=== PATIENT | male | born 1955 | race African-American/Black ===

== ENCOUNTER 2020-01-12 09:55 | Outpatient (CLI) | payer BC, SELFPAY ==
--- NOTE | 2020-01-12 | ECG_ITS ---
Measurements Intervals [place] Rate: 70 P: 59 ME: 213 QRS: -12 QRSD: 112 T: -5 QT: 428 QTc: 463 Interpretive Statements SINUS RHYTHM WITH FIRST DEGREE AV BLOCK INCOMPLETE RIGHT BUNDLE BRANCH BLOCK NONSPECIFIC ST & T-WAVE ABNORMALITY- INFERIOR LEADS NONSPECIFIC ST ELEVATION IN ANTEROLATERAL LEADS ABNORMAL ECG Electronically Signed On 01-12-2020 10:50:39 CDT by Maycol Chopra D.O.
[2020-01-12 10:26] LABS: Hematocrit 43.6 % (42.0-52.0); Hemoglobin 14.3 g/dL (14.0-18.0)
[2020-01-12 10:35] LABS: Hemoglobin A1C 4.6 % (<5.7)
[2020-01-12 10:36] LABS: Urine Cotinine NEGATIVE
[2020-01-12 10:38] LABS: Albumin Level 4.7 g/dL (3.5-5.1); Estimated Glomerular Filt Rate > 60; Glucose 108 mg/dL (75-110)
== END 2020-01-12 09:56 | disposition home or self-care (01) ==
PROVIDERS: PCP Internal Medicine; Visit Provider Orthopaedic Surgery
DX: Z01.818 Encounter for other preprocedural examination (principal); M17.12 Unilateral primary osteoarthritis, left knee; I12.9 Hypertensive chronic kidney disease with stage 1 through stage 4 chronic kidney disease, or unspecified chronic kidney disease; N18.9 Chronic kidney disease, unspecified; E78.5 Hyperlipidemia, unspecified; I25.10 Atherosclerotic heart disease of native coronary artery without angina pectoris; R93.1 Abnormal findings on diagnostic imaging of heart and coronary circulation
CPT/HCPCS: 80307; 82040; 82565; 82947; 83036; 85014; 85018; 93005

== ENCOUNTER 2020-01-25 07:45 | Outpatient (CLI) | payer BC, SELFPAY ==
[2020-01-25 08:54] LABS: Basophils Percent Auto 0.4 % (0.2-1.2); Eosinophils Absolute Auto 0.1 K/mm3 (0-0.3); Eosinophils Percent Auto 0.6 % (0-4.4); Hematocrit 41.8 % (42.0-52.0); Hemoglobin 13.8 g/dL (14.0-18.0); Immature Granulocyte Absolute 0.03 K/mm3 (0.00-0.031); Immature Granulocyte Percent A 0.3 % (0-0.5); Lymphocytes Absolute Auto 3.12 K/mm3 (0.9-3.2); Lymphocytes Percent Auto 29.3 % (18.3-44.2); Mean Corpuscular Hemoglobin 31.2 pg (26-34); Mean Corpuscular Volume 94.4 fl (80-100); Mean Platelet Volume 10.4 fl (7.4-10.4); Monocytes Absolute Auto 0.8 K/mm3 (0.1-0.6); Monocytes Percent Auto 7.7 % (2.6-8.5); Neutrophils Absolute Auto 6.6 K/mm3 (1.3-6.7); Neutrophils Percent Auto 61.7 % (45.5-73.1); Platelet Count Result 296 k/mm3 (150-375); Red Blood Count 4.43 M/mm3 (4.6-6.20); Red Cell Distribution Width 11.9 % (11.5-14.5); White Blood Count 10.7 K/mm3 (4.5-10.0)
== END 2020-01-25 07:46 | disposition home or self-care (01) ==
LOC: ANHSURGERY 07:46
PROVIDERS: PCP Internal Medicine; Visit Provider Orthopaedic Surgery
DX: Z01.818 Encounter for other preprocedural examination (principal); M17.12 Unilateral primary osteoarthritis, left knee
CPT/HCPCS: 36415; 85025; 86850; 86900; 86901; 87081

== ENCOUNTER 2020-02-03 01:51 | Outpatient (CLI) | payer BC, SELFPAY ==
[2020-02-03 17:59] LABS: SARS-CoV-2 RNA PCR Negative
== END 2020-02-03 01:52 | disposition home or self-care (01) ==
LOC: ANHCOVIDDT 01:51
PROVIDERS: PCP Internal Medicine; Visit Provider Orthopaedic Surgery
DX: Z01.812 Encounter for preprocedural laboratory examination (principal); Z20.828 Contact with and (suspected) exposure to other viral communicable diseases
CPT/HCPCS: 87635; C9803; U0003

== ENCOUNTER 2020-02-06 01:10 | Day surgery (SDC) | payer BC, SELFPAY ==
[2020-01-25 07:53] VITALS: BMI 34.2
[2020-01-25 07:58] VITALS: BP 139/80; PULSE 72; RESP 16; TEMP 36.9; O2SAT 99
--- NOTE | 2020-02-04 10:24 | WPDANESEPP ---
Anes - Eval Pre Procedure Procedure: Operation Date: 02/06/20 07:30 Proposed Procedures p Left Total Knee Arthroplasty - Parker Clarke MD Date/Time: 02/04/20 10:24 Pre Op Diagnosis: Primary OA Left Knee Patient Data Age: 64 Gender: M Height: 1.91 m Weight: 124.4 kg Last Vital Signs Temp 36.9 C 01/25/20 07:58 Pulse 72 01/25/20 07:58 Resp 16 01/25/20 07:58 BP 139/80 01/25/20 07:58 Pulse Ox 99 01/25/20 07:58 Allergies Allergy/AdvReac Type Severity Reaction Status Date / Time No Known Allergies Allergy Verified 01/29/20 11:18 Home Medications Medication Instructions Recorded Confirmed Type atorvastatin 40 mg PO DAILY 03/28/19 01/29/20 History labetalol 100 mg PO BID 03/28/19 01/29/20 History triamterene-hydrochlorothiazid 1 cap PO DAILY 03/28/19 01/29/20 History amlodipine 10 mg tablet 10 mg PO DAILY #90 tablet 04/04/19 01/29/20 Rx sildenafil 100 mg tablet 100 mg PO PRN #18 tablet 10/10/19 01/29/20 Rx potassium chloride 10 mEq 10 meq PO DAILY #90 tablet 12/12/19 01/29/20 Rx tablet,extended release tramadol 50 mg tablet 50 mg PO Q6H PRN #30 tablet 01/12/20 01/29/20 Rx aspirin [Children's Aspirin] 81 mg PO QAM 01/25/20 01/29/20 History Patient hx anesthesia problems: none Family hx anesthesia problems: none PMFSH Past Medical History Medical History CAD (coronary artery disease) Chronic GERD Colon polyps HTN (hypertension) Hyperlipidemia Hypertensive kidney disease with CKD stage III Prostate cancer Treated with prostatectomy, no radiation therapy Surgical History Surgical History H/O angioplasty 1986 H/O hernia repair X2 year H/O knee surgery Bilateral, for ruptured quadriceps tendons H/O prostatectomy Due to prostate cancer History of back surgery Cyst removed from back History of cardiac catheterization Family History Family History Mother Diabetes mellitus Hypertension Father Carcinoma of colon Diabetes mellitus Hypertension Sibling Diabetes mellitus Other Family history of malignant neoplasm Social History Social History Social History: Patient is retired from the [employer]. Enjoying his job but is now board since [employer]. Takes care of his grandchildren. He is to [place]iha in who his his durable power tapper balance wheel screw hole for healthcare. The patient has 3 biological children. He is adopted 2 children. He has foster dad other children as well. Smoking status: Never smoker Second hand tobacco smoke exposure: Yes () Additional smoking assessment comments: DENIES ANY FORM OF TOBACCO/NICOTINE USE Alcohol intake: current Drinks per week: 8 Substance use: never Gender identity (if verbalized by the patient): Male Spiritual care concerns: No Agree to blood products: Yes Exam Day of Procedure 02/04/20 10:24
--- NOTE | 2020-02-05 11:31 | WPDANESEPPF ---
Anes - Initial Pre Proc Eval Procedure: Operation Date: 02/06/20 07:30 Proposed Procedures p Left Total Knee Arthroplasty - Parker Clarke MD Date/Time: 02/05/20 11:31 Surgeon: Parker Clarke MD Pre Op Diagnosis: Primary OA Left Knee Patient Data Age: 64 Gender: M Height: 1.91 m Weight: 124.4 kg Last Vital Signs Temp 36.9 C 01/25/20 07:58 Pulse 72 01/25/20 07:58 Resp 16 01/25/20 07:58 BP 139/80 01/25/20 07:58 Pulse Ox 99 01/25/20 07:58 Allergies Allergy/AdvReac Type Severity Reaction Status Date / Time No Known Allergies Allergy Verified 02/06/20 06:34 Home Medications Medication Instructions Recorded Confirmed Type atorvastatin 40 mg PO DAILY 03/28/19 02/06/20 History labetalol 100 mg PO BID 03/28/19 02/06/20 History triamterene-hydrochlorothiazid 1 cap PO DAILY 03/28/19 02/06/20 History amlodipine 10 mg tablet 10 mg PO DAILY #90 tablet 04/04/19 02/06/20 Rx sildenafil 100 mg tablet 100 mg PO PRN #18 tablet 10/10/19 02/06/20 Rx potassium chloride 10 mEq 10 meq PO DAILY #90 tablet 12/12/19 02/06/20 Rx tablet,extended release tramadol 50 mg tablet 50 mg PO Q6H PRN #30 tablet 01/12/20 02/06/20 Rx aspirin [Children's Aspirin] 81 mg PO QAM 01/25/20 02/06/20 History Patient hx anesthesia problems: none Family hx anesthesia problems: none PMFSH Past Medical History Medical History CAD (coronary artery disease) Chronic GERD Colon polyps HTN (hypertension) Hyperlipidemia Hypertensive kidney disease with CKD stage III Prostate cancer Treated with prostatectomy, no radiation therapy Surgical History Surgical History H/O angioplasty 1986 H/O hernia repair X2 year H/O knee surgery Bilateral, for ruptured quadriceps tendons H/O prostatectomy Due to prostate cancer History of back surgery Cyst removed from back History of cardiac catheterization Family History Family History Mother Diabetes mellitus Hypertension Father Carcinoma of colon Diabetes mellitus Hypertension Sibling Diabetes mellitus Other Family history of malignant neoplasm Social History Social History Social History: Patient is retired from the [employer]. Enjoying his job but is now board since half-way. Takes care of his grandchildren. He is to Madiha in who his his durable power staff attorney for healthcare. The patient has 3 biological children. He is adopted 2 children. He has foster dad other children as well. Smoking status: Never smoker Second hand tobacco smoke exposure: No Additional smoking assessment comments: DENIES ANY FORM OF TOBACCO/NICOTINE USE Alcohol intake: current Drinks per week: 7 Substance use: never Living arrangements: with family Gender identity (if verbalized by the patient): Male Spiritual care concerns: No Agree to blood products: Yes Anes - Eval Final PreProcedure Day of Procedure 02/05/20 11:31 Patient weight: obese Heart: regular rate and rhythm Lungs: clear to auscultation and normal air movement Airway: Mallampati scale class II Neurological: alert and oriented Last oral intake: >/= 8 hours ASA classification: III Emergent: no Anesthetic plan: proceed Anesthesia type and monitoring: general LMA and standard monitoring Informed Consent: The patient's anesthetic plan and its attendant risks and benefits were discussed with the patient/family/POA. Questions were solicited and answers provided to the satisfaction of the patient/family/POA.
--- NOTE | 2020-02-05 11:40 | WPDANESPNB ---
Anes - Peripheral Nerve Block Date/Time: 02/05/20 11:40 I have discussed with the patient/family/POA the placement of a peripheral nerve block for post-operative pain management, including associated risks, benefits, complications, and side effects. Alternative methods of post-operative analgesia were detailed. Questions were solicited and answers provided to the satisfaction of the patient/family/POA. Time-Out: A pre-procedural Time-Out was completed immediately before starting the procedure and confirmed: Patient Identification, Site, Procedure, Patient Position and the Availability of Requisite Equipment. Clinical Indications: Acute post-operative pain management requested by the operative surgeon. Nerve Block Insertion Note Anes-nerve block: adductor canal left Patient position: supine Skin prep: chlorhexidine Needle: 22 gauge, stimulating, insulated echogenic needle. Needle length: 80 mm Technique: ultrasound Injectate: bupivacaine 0.5% with epi 5 mcg/ml (30cc) Observations: tolerated well Complications: none Procedure start time:: 711 Procedure end time:: 714
[2020-02-06] VITALS (14 sets, daily range): BP systolic 114–153; BP diastolic 68–84; PULSE 77–98; RESP 14–20; TEMP 35.9–37.2; O2SAT 93–98
--- NOTE | ~2020-02-06 | XR_ITS ---
EXAMINATION: XR knee LT 2V DATE: 02/06/2020 10:46 INDICATION: Postoperative evaluation following left total knee arthroplasty. TECHNIQUE: Anteroposterior and lateral views of the left knee were obtained. COMPARISON: None. FINDINGS: Left total knee arthroplasty with patellar resurfacing appears well seated and in near anatomic align ment. No fractures identified. Epdro-Stieda lesion with heterotopic ossification along the medi al epicondyle likely related to chronic sprain of the medial collateral ligament. Several loose osteo chondral bodies versus heterotopic ossification projecting over the suprapatellar pouch. Expected pos toperative subcutaneous and intra-articular gas. IMPRESSION: 1. Left total knee arthroplasty, negative for postoperative purposes. 2. Pedro-Stieda lesion consistent with chronic sprain of the proximal medial collateral ligament . Reviewed, dictated and finalized at location A. IMPRESSION: 1. Left total knee arthroplasty, negative for postoperative purposes. 2. Pedro-Stieda lesion consistent with chronic sprain of the proximal medi al collateral ligament.
[2020-02-06] MEDS: ACETAMINOPHEN 500 MG TABLET 1000 MG PO (06:37)
[2020-02-06] MEDS: LACTATED RINGERS 1,000 ML 30 ML IV CONT ×2 (06:40→10:32)
[2020-02-06] MEDS: KETOROLAC 15 MG/ML VIAL (*BKC) IV PUSH (06:45)
[2020-02-06] MEDS: TRANEXAMIC ACID 1,000MG/ISO100 1,000 MG/100 ML BAG 200 MG IVPB (06:45)
--- NOTE | 2020-02-06 07:01 | WPDHPUPDATE1 ---
History and Physical Update Update Date/Time: 02/06/20 07:01 History and Physical has been reviewed, including an updated exam of the patient. There are NO changes in the patient's condition. Risks, benefits, and alternatives have been discussed and questions answered. Patient agrees to proceed with procedure.
[2020-02-06] MEDS: ceFAZolin 3 GM/D5W 100 ML 100 ML IVPB (07:20)
[2020-02-06] MEDS: GENTAMICIN BONE CEMENT REFOBACIN 1 EACH TOPICAL (09:19)
--- NOTE | 2020-02-06 10:56 | P.OP_ITS ---
Procedure Note - Detailed Date of procedure: 02/07/20 Pre-op diagnosis: Primary OA Left Knee Post-op diagnosis: same Procedure performed: Total knee arthroplasty Description of procedure: * Extensive osteophyte formation. Bone quality good. Very large medial release required, including needle release. Contracture was suspected due to the previous injuries and the osteophytes inside medial collateral ligament attachment at the adductor tubercle. Multiple sutures from the previous quadriceps tendon repair encountered. Medial parapatellar approach performed. Large osteophyte proximal patella/ distal quadriceps excised the articular side. Standard bony resections performed. 5 degree valgus femur, 3? external rotation. The femur was downsized 1.5 mm. Posterior capsule release was also performed to facilitate full extension. Implants: [employer] knee system, Allen base plate cemented tibia size 7, Posterior cruciate stabilized cemented femoral component size 7 ,and an 16 mm posterior stabilized polyethylene insert. 38mm polyethylene patella component. Anesthesia: GETA and regional (subsartorial nerve block) Surgeon: Parker Clarke MD Drains: No Complications: None Findings: OPERATIVE DETAILS: The patient was given a nerve block preoperatively, and then brought to the operating room. A general anesthetic was administered. The leg was prepped and draped in the usual sterile fashion. The limb was elevated and the tourniquet inflated to 300 mmHg during the procedure. A longitudinal incision was created along the medial border of the patella and patellar tendon, and a medial parapatellar approach to the knee was performed. A large medial release was taken. The knee was then flexed. The osteophytes were carefully removed. The intramedullary guide was placed in the femoral canal. The distal femoral resection was then taken with the oscillating saw. The collateral ligaments were carefully protected. The tibia was carefully exposed. The jig was applied, and the proximal tibia was resected according to the preoperative plan. The knee was balanced in extension. Appropriate releases were taken where needed. The anterior cruciate ligament and meniscal remnants were removed. The posterior cruciate ligament was sacrificed. The patella was measured. Patellar resection was carried out with the oscillating saw. The femur was sized and rotation assessed using a combination of gap balancing, posterior referencing, and the AP axis. The 4 in 1 cutting block, and the box cut guide were used to finish the femoral cuts after equal gaps were assured. The osteophytes were carefully removed from the back of the knee. The knee was copiously irrigated with antibiotic solution periodically throughout the procedure. The meniscal remnants were removed. The spacer block was used to confirm equal flexion and extension gaps. The tibia was sized and broached. The bony surfaces were prepared for cementing with pulsatile lavage. The real tibia,femur, and patella were cemented. Excess cement was carefully removed. Patellar tracking was carefully assessed. No additional releases were required. The wound was closed with #1 Vicryl suture, #2 Quill suture, 0-Quill suture, and 2-0 Quill suture followed by Steri-Strips. A sterile bulky dressing was applied. Meticulous hemostasis was maintained throughout the procedure. The Aquamantis device was used for additional hemostasis. The pain relieving mixture was injected after the exposure. There were no complications. The patient was extubated and brought to the recovery room in stable condition after the application of sterile dressing with Wily bandage.
[2020-02-06] MEDS: SODIUM CHLORIDE 0.9% IV 1,000 ML 125 ML IV CONT (12:24)
--- NOTE | 2020-02-06 12:45 | WPDCN ---
Assessment and Plan Assessment and plan (1) Arthritis of left knee: Code(s): M17.12 - Unilateral primary osteoarthritis, left knee Status: Acute (2) Hypertension: Code(s): I10 - Essential (primary) hypertension Status: Acute (3) Hyperlipidemia: Qualifiers: Hyperlipidemia type: unspecified Qualified Code(s): E78.5 - Hyperlipidemia, unspecified Code(s): E78.5 - Hyperlipidemia, unspecified Status: Chronic (4) Chronic kidney disease, stage 3: Code(s): N18.30 - Chronic kidney disease, stage 3 unspecified Status: Acute Additional Plan The hospitalist service has been consulted for management of the patient's medical condition postoperatively. Wound care and pain control will be deferred to Dr. Clarke as well as DVT prophylaxis. Agree with early ambulation and physical therapy. Vital signs were reviewed and his blood pressure is well controlled. Antihypertensives will be resumed and blood pressures will be monitored daily. Check baseline labs in a.m. including LFTs as he is on a statin. The rest of his home medications will be reviewed and resumed as appropriate. Thank you for allowing us to participate in this patient's care. Please do not hesitate to contact us with any questions. We will follow with you. Supervising physician for this medical consultation is Dr. Saba Delgado. This document was completed by using [employer] speech recognition software, therefore pit laborer variances may occur. Despite proofreading, typographical errors may also occur. HPI Data of Consult Date/Time: 02/06/20 12:45 Requesting Physician: Parker Clarke MD Primary Care Provider: Chin George MD Consult Narrative Narrative: Ashkan Stallworth is a 64-year-old male whom the hospitalist service has been consulted for management of his medical conditions postoperatively. He has severe, progressive osteoarthritis of the left knee and despite conservative outpatient treatment he continued to have pain and thus elected for replacement today. His surgery was performed under general anesthesia with regional block. No immediate complications were documented, I do not see an estimated blood loss. Postoperatively, he has minimal pain despite his regional block wearing off. He has been up to the chair at the side of the bed and has done well with that. He denies postoperative fever, chills, chest pain, shortness of breath, nausea, and vomiting. He also denies paresthesias, skin color, and temperature changes distal to the surgical site. Review of Systems Review of Systems: Narrative: Twelve systems were reviewed with pertinent positives and negatives as per HPI. Aside from osteoarthritis, his medical history is significant for coronary artery disease, hypertension, hyperlipidemia, chronic kidney disease stage 3, and history of prostate cancer. He is status post angioplasty in 1986 with a negative stress test in March 2019. He believes his hypertension and hyperlipidemia well controlled on medications. He is status post prostatectomy in 2010 for prostate cancer. His kidney function has been stable. No history of venous thromboembolism. Except as documented, all other systems were reviewed and are negative. [facility] Past Medical History Medical History (Updated 02/06/20 @ 13:46 by Chelsey Cotton PA-C) Chronic GERD Chronic kidney disease, stage 3 Baseline creatinine is between 1.3 and 1.50. Colon polyps Coronary artery disease With history of angioplasty in 1986. Negative stress test in March 2019. Erectile dysfunction Gout Hyperlipidemia Hypertension Hypertensive kidney disease with CKD stage III Osteoarthritis Prostate cancer (~2010) Status post prostatectomy. Surgical History Surgical History (Updated 02/06/20 @ 13:44 by Chelsey Cototn PA-C) History of angioplasty (~1986) History of arthroplasty of left knee (~02/06/20) History of back s
[2020-02-06] MEDS: ceFAZolin 2 GM/D5W 50 ML 2 GM/50 ML BAG IVPB ×2 (15:26→23:43)
[2020-02-06] MEDS: ASPIRIN 81 MG ENTERIC TABLET PO (17:36)
[2020-02-06] MEDS: MELOXICAM 7.5 MG TABLET PO (17:36)
[2020-02-06] MEDS: DOCUSATE SODIUM 100 MG CAPSULE PO (17:36)
[2020-02-06] MEDS: SENNOSIDES 8.6 MG TABLET 17.2 MG PO (20:09)
[2020-02-06] MEDS: FAMOTIDINE 20 MG TABLET PO (20:10)
[2020-02-06] MEDS: LABETALOL HCL 100 MG TABLET PO (20:10)
[2020-02-07 01:20] VITALS: BP 111/85; PULSE 84; RESP 16; TEMP 36.2; O2SAT 95
[2020-02-07 05:30] VITALS: BP 123/71; PULSE 79; RESP 16; TEMP 36.1; O2SAT 97
[2020-02-07 05:54] LABS: Basophils Percent Auto 0.1 % (0.2-1.2); Hematocrit 35.5 % (42.0-52.0); Hemoglobin 11.7 g/dL (14.0-18.0); Immature Granulocyte Absolute 0.24 K/mm3 (0.00-0.031); Immature Granulocyte Percent A 1.1 % (0-0.5); Lymphocytes Absolute Auto 2.24 K/mm3 (0.9-3.2); Mean Corpuscular Hemoglobin 31.1 pg (26-34); Mean Corpuscular Volume 94.4 fl (80-100); Mean Platelet Volume 10.7 fl (7.4-10.4); Monocytes Absolute Auto 2.3 K/mm3 (0.1-0.6); Monocytes Percent Auto 10.2 % (2.6-8.5); Neutrophils Absolute Auto 17.6 K/mm3 (1.3-6.7); Neutrophils Percent Auto 78.6 % (45.5-73.1); Platelet Count Result 228 k/mm3 (150-375); Red Blood Count 3.76 M/mm3 (4.6-6.20); Red Cell Distribution Width 12.2 % (11.5-14.5); White Blood Count 22.4 K/mm3 (4.5-10.0)
[2020-02-07 06:07] LABS: Alanine Aminotransferase 25 U/L (4-50); Albumin Level 3.9 g/dL (3.5-5.1); Alkaline Phosphatase 48 U/L (38-126); Anion Gap 10 mmol/L (8-16); Aspartate Amino Transferase 28 U/L (17-59); Bilirubin,Total 0.9 mg/dL (0.2-1.3); Blood Urea Nitrogen 15 mg/dL (9-20); Calcium 8.7 mg/dL (8.4-10.2); Carbon Dioxide 26 mmol/L (22-30); Chloride 106 mmol/L (98-107); Estimated CRCL calculation 80 ml/min; Estimated Glomerular Filt Rate > 60; Glucose 122 mg/dL (75-110); Potassium 3.1 mmol/L (3.4-5.0); Sodium 142 mmol/L (137-145)
[2020-02-07] MEDS: oxyCODONE HCL (*CRX) 5 MG TAB IR PO (06:10)
[2020-02-07] MEDS: ceFAZolin 2 GM/D5W 50 ML 2 GM/50 ML BAG IVPB (06:33)
--- NOTE | 2020-02-07 08:38 | WPDANESPN ---
Anes - Prog Note Post-Op Date/Time: 02/07/20 08:38 Cardiovascular status: normal Respiratory status: normal Airway patency: baseline Mental status: baseline Post-Op hydration status: normal Vital Signs: Last Vital Signs Temp 36.1 C L 02/07/20 05:30 Pulse 79 02/07/20 05:30 Resp 16 02/07/20 05:30 BP 123/71 02/07/20 05:30 Pulse Ox 97 02/07/20 05:30 Pain Score (VAS): 0 I/O: Intake & Output 02/06/20 02/07/20 02/07/20 23:59 07:59 15:59 Intake Total 740 550 Output Total 425 900 Balance 315 -350 Laboratory Tests 02/07/20 05:10 02/07/20 05:10 02/07/20 02/07/20 02/07/20 05:10 05:10 05:10 WBC 22.4 H RBC 3.76 L Hgb 11.7 L Hct 35.5 L MCV 94.4 MCH 31.1 MCHC 33.0 RDW 12.2 Plt Count 228 MPV 10.7 H Immature Gran % (Auto) 1.1 H Neut % (Auto) 78.6 H Lymph % (Auto) 10.0 L [place] % (Auto) 10.2 H Eos % (Auto) 0.0 Baso % (Auto) 0.1 L Lymph # (Auto) 2.24 [place] # (Auto) 2.3 H Eos # (Auto) 0.0 Baso # (Auto) 0.0 Abs Immat Gran (auto) 0.24 H Absolute Neuts (auto) 17.6 H Absolute Nucleated RBC 0.0 Nucleated RBC % 0.0 Sodium 142 Potassium 3.1 L Chloride 106 Carbon Dioxide 26 Anion Gap 10 BUN 15 Creatinine 1.20 Estim Creat Clear Calc 80 Estimated GFR > 60 Glucose 122 H Calcium 8.7 Total Bilirubin 0.9 Direct Bilirubin 0.0 AST 28 ALT 25 Alkaline Phosphatase 48 Total Protein 7.0 Albumin 3.9 Post-procedural complaints: none Patient Feedback: Patient satisfied with anesthetic care.
[2020-02-07] MEDS: ATORVASTATIN 40 MG TABLET PO (09:19)
[2020-02-07] MEDS: FAMOTIDINE 20 MG TABLET PO (09:19)
[2020-02-07] MEDS: POTASSIUM CHLORIDE 20 MEQ TABLET PO (09:19)
[2020-02-07] MEDS: POTASSIUM CHLORIDE 10 MEQ TABLET.ER PO (09:19)
[2020-02-07] MEDS: TRIAMTERENE 37.5 MG/HCTZ 25 MG (MAXZIDE) TABLET 1 TAB PO (09:19)
[2020-02-07 09:20] VITALS: PULSE 79
[2020-02-07] MEDS: ASPIRIN 81 MG ENTERIC TABLET PO (09:20)
[2020-02-07] MEDS: amLODIPine BESYLATE 5 MG TABLET 10 MG PO (09:20)
[2020-02-07] MEDS: MELOXICAM 7.5 MG TABLET PO (09:20)
[2020-02-07] MEDS: LABETALOL HCL 100 MG TABLET PO (09:20)
[2020-02-07] MEDS: DOCUSATE SODIUM 100 MG CAPSULE PO (09:20)
[2020-02-07] MEDS: POTASSIUM CHLORIDE 10 MEQ TABLET PO (09:21)
[2020-02-07 10:00] VITALS: BP 140/73; PULSE 92; RESP 16; TEMP 36.2; O2SAT 98
[2020-02-07 11:45] LABS: Basophils Percent Auto 0.2 % (0.2-1.2); Hematocrit 38.4 % (42.0-52.0); Hemoglobin 12.7 g/dL (14.0-18.0); Immature Granulocyte Percent A 0.5 % (0-0.5); Lymphocytes Absolute Auto 2.57 K/mm3 (0.9-3.2); Lymphocytes Percent Auto 13.2 % (18.3-44.2); Mean Corpuscular HGB Conc 33.1 g/dl (32-36); Mean Corpuscular Hemoglobin 31.7 pg (26-34); Mean Corpuscular Volume 95.8 fl (80-100); Mean Platelet Volume 10.4 fl (7.4-10.4); Monocytes Absolute Auto 2.4 K/mm3 (0.1-0.6); Monocytes Percent Auto 12.1 % (2.6-8.5); Neutrophils Absolute Auto 14.4 K/mm3 (1.3-6.7); Platelet Count Result 237 k/mm3 (150-375); Red Blood Count 4.01 M/mm3 (4.6-6.20); Red Cell Distribution Width 12.5 % (11.5-14.5); White Blood Count 19.5 K/mm3 (4.5-10.0)
--- NOTE | 2020-02-07 11:48 | PM.DS ---
DS: Admitting Diagnosis Admitting Diagnosis Admitting Diagnosis: Primary OA Left Knee DS: Discharge Diagnosis Discharge Diagnosis (1) History of arthroplasty of left knee: Onset Date: ~02/06/20 Code(s): Z96.652 - Presence of left artificial knee joint Status: Acute DS: Summary Hospital Course Reason for hospitalization: Total knee arthroplasty. Hospital Course: Tolerated surgery well. Progressed appropriately with therapy. Status at Discharge Functional status at discharge: uses cane/walker Overall status at discharge: patient is progressing back to baseline Time Spent with Patient Time attestation: Total time spent providing and/or coordinating discharge services: Exam Const: General: no acute distress Resp: Effort & Inspection: normal respiratory effort Skin: Other: Wound healing well. Mepilex dressing intact. No hematoma or drainage. Neuro: Motor exam (neuro): 5/5 motor strength present throughout Sensory Exam: normal sensation Psych: Mental Status: mental status grossly normal Speech and movement: Normal speech and movement present DS: Data Data Completed and Pending Labs on day of discharge: Labs from last 24 hours 02/07/20 02/07/20 02/07/20 11:38 05:10 05:10 WBC Pending RBC Pending Hgb Pending Hct Pending MCV Pending MCH Pending MCHC Pending RDW Pending Plt Count Pending MPV Pending Immature Gran % (Auto) Pending Neut % (Auto) Pending Lymph % (Auto) Pending [place] % (Auto) Pending Eos % (Auto) Pending Baso % (Auto) Pending Lymph # (Auto) Pending [place] # (Auto) Pending Eos # (Auto) Pending Baso # (Auto) Pending Abs Immat Gran (auto) Pending Absolute Neuts (auto) Pending Absolute Nucleated RBC Pending Nucleated RBC % Pending Sodium 142 Potassium 3.1 L Chloride 106 Carbon Dioxide 26 Anion Gap 10 BUN 15 Creatinine 1.20 Estim Creat Clear Calc 80 Estimated GFR > 60 Glucose 122 H Calcium 8.7 Total Bilirubin 0.9 Direct Bilirubin 0.0 AST 28 ALT 25 Alkaline Phosphatase 48 Total Protein 7.0 Albumin 3.9 02/07/20 05:10 WBC 22.4 H RBC 3.76 L Hgb 11.7 L Hct 35.5 L MCV 94.4 MCH 31.1 MCHC 33.0 RDW 12.2 Plt Count 228 MPV 10.7 H Immature Gran % (Auto) 1.1 H Neut % (Auto) 78.6 H Lymph % (Auto) 10.0 L [place] % (Auto) 10.2 H Eos % (Auto) 0.0 Baso % (Auto) 0.1 L Lymph # (Auto) 2.24 [place] # (Auto) 2.3 H Eos # (Auto) 0.0 Baso # (Auto) 0.0 Abs Immat Gran (auto) 0.24 H Absolute Neuts (auto) 17.6 H Absolute Nucleated RBC 0.0 Nucleated RBC % 0.0 Sodium Potassium Chloride Carbon Dioxide Anion Gap BUN Creatinine Estim Creat Clear Calc Estimated GFR Glucose Calcium Total Bilirubin Direct Bilirubin AST ALT Alkaline Phosphatase Total Protein Albumin Discharge Plan Discharge Patient Disposition: Home, Self-Care Discharge Instructions: See instruction sheet. Patient Instructions: Antibiotic Form, Pain Management (GEN), Precautions after Total Joint Replacement Surgery (GEN), Joint Replacement Surgery (GEN), Knee Replacement (GEN), Revision Total Joint Arthroplasty (GEN) Follow-up/Referrals: Parker Clarke MD [Physician] - Discharge Medications: New aspirin 81 mg Tablet,Delayed Release (Dr/Ec) 81 mg PO BID 14 Days Qty: 28 RF: 0 meloxicam [Mobic] 7.5 mg Tablet 7.5 mg PO BID 30 Days Qty: 60 RF: 1 oxycodone-acetaminophen 5-325 mg tablet 1 - 2 tablet PO Q4-6H MDD 8 tablets PRN (Reason: pain) Qty: 30 RF: 0 Continued amlodipine 10 mg tablet 10 mg PO DAILY Qty: 90 RF: 3 atorvastatin 40 mg tablet 40 mg PO DAILY RF: 0 triamterene-hydrochlorothiazid 37.5-25 mg capsule 1 cap PO DAILY RF: 0 labetalol 100 mg tablet 100 mg PO BID RF: 0 sildenafil 100 mg tablet 100 mg PO PRN Qty: 18 RF: 4 potassium chloride [Klor-Con 10] 10 mEq tablet extended
--- NOTE | 2020-02-07 14:15 | PM.IMPN ---
Progress Note: A&P Assessment and Plan (1) Arthritis of left knee: Code(s): M17.12 - Unilateral primary osteoarthritis, left knee Status: Acute Assessment and Plan: He is POD#1 s/p left total knee arthroplasty by Dr. Calrke due to severe, progressive left knee arthritis. He tolerated the procedure well with no immediate complications documented. Post-operative wound care, pain control, DVT prophylaxis, and weight-bearing status will be deferred to Dr. Clarke. Agree with early ambulation and physical therapy. (2) Leukocytosis: Code(s): D72.829 - Elevated white blood cell count, unspecified Status: Acute Assessment and Plan: WBC elevated at 22.4 post-op. I suspect that this is reactive following surgery. He is afebrile with no signs or symptoms to suggest infection. Recommend repeat CBC in 1 week. He should follow-up with his PCP immediately if he develops any symptoms to suggest infection. (3) Hypertension: Code(s): I10 - Essential (primary) hypertension Status: Chronic Assessment and Plan: Blood pressures were reviewed and reasonably controlled. Most recent BP was 140/73. Continue amlodipine, labetalol, and triamterene-hydrochlorothiazide. (4) Hyperlipidemia: Qualifiers: Hyperlipidemia type: unspecified Qualified Code(s): E78.5 - Hyperlipidemia, unspecified Code(s): E78.5 - Hyperlipidemia, unspecified Status: Chronic Assessment and Plan: LFTs were reviewed and are normal. Continue atorvastatin. (5) Chronic kidney disease, stage 3: Code(s): N18.30 - Chronic kidney disease, stage 3 unspecified Status: Chronic Assessment and Plan: Cr is 1.2 and BUN 15. Renal function appears improved from baseline. Renally dose medications and avoid nephrotoxins. Continue to monitor and follow-up outpatient. (6) Hypokalemia: Code(s): E87.6 - Hypokalemia Status: Acute Assessment and Plan: Potassium was low at 3.1. He reports that he did not take potassium yesterday. Potassium was replaced with PO KCl supplementation. Recommend repeat BMI outpatient within 1 week. Follow-up with PCP outpatient. Time Spent With Patient Time with patient: 15 - 25 minutes Subjective Date/time seen: 02/07/20 14:15 Mr. Stallworth is a 64 y.o. male with PMH significant for hypertension, CKD stage 3, GERD, HLD and osteoarthritis who is seen in follow-up for medical management s/p left total knee arthroplasty. He is doing very well post-operatively His pain is well-controlled with tylenol. He ambulated with therapy and is progressing well. He denies subjective fever and chills. He denies dyspnea, shortness of breath, and cough. He denies nausea and vomiting. He denies headaches, lightheadedness, and dizziness. He is voiding without any issues and has no other urinary complaints. He is tolerating his diet. He is passing flatus and feels like he will need to have a bowel movement soon. Review of Systems Review of Systems: All systems reviewed & are unremarkable except as noted in HPI and below Exam Narrative: Exam Narrative: General: Very pleasant and cooperative, well-developed, well-nourished 64 y.o. male sitting in the chair at the bedside HEENT: Normocephalic and atraumatic. Sclerae anicteric. Conjunctivae without injection or exudate. EOMI. Oral mucosa moist. Neck: Supple. Cardiac: Regular rate and rhythm. S1 and S2 normal. No murmur appreciated. Lungs: Effort normal with no increased work of breathing. Lungs clear to auscultation bilaterally. Abdomen: Bowel sounds are normoactive. Abdomen soft, non-distended, and non-tender. Musculoskeletal: Left knee with ice therapy in place. Extremities: No lower extremity edema or calf tenderness. Pedal pulses 2+ bilaterally. Neurological: Alert and oriented. Exam non-focal to casual conversation. Speech is clear. Motor and sensory function intact to the left leg and
== END 2020-02-07 14:40 | disposition home or self-care (01) ==
LOC: ANHSURGERY 06:06 → ANH2MED 11:48
PROVIDERS: Physician Assistant; Physician Assistant Surgical; PCP Internal Medicine; Visit Provider Orthopaedic Surgery
PROC: (CPT 27447; principal; 2020-02-06 07:30)
DX: M17.12 Unilateral primary osteoarthritis, left knee (principal); G89.18 Other acute postprocedural pain; E78.5 Hyperlipidemia, unspecified; I12.9 Hypertensive chronic kidney disease with stage 1 through stage 4 chronic kidney disease, or unspecified chronic kidney disease; N18.30 Chronic kidney disease, stage 3 unspecified; I25.10 Atherosclerotic heart disease of native coronary artery without angina pectoris; K21.9 Gastro-esophageal reflux disease without esophagitis; Z85.46 Personal history of malignant neoplasm of prostate; Z79.82 Long term (current) use of aspirin; E66.9 Obesity, unspecified; Z68.33 Body mass index [BMI] 33.0-33.9, adult; Z23 Encounter for immunization
CPT/HCPCS: 27447; 64447; 36415; 73560; 80048; 80076; 85025; 90471; 90653; 97110; 97116; 97161; 97165; A9270; C1713; C1776; G0008; J0131; J0171; J0690; J1100; J1885; J2250; J2270; J2405; J2704; J2795; J3010; J7030; J7120

== ENCOUNTER 2020-06-28 11:46 | Emergency (ER) | payer BC, SELFPAY ==
[2020-06-28] VITALS (8 sets, daily range): BP systolic 136–187; BP diastolic 79–92; PULSE 74–94; RESP 16–19; TEMP 36.2; O2SAT 96–99
--- NOTE | ~2020-06-28 | XR_ITS ---
XR chest 2V DATE: 06/28/2020 12:31 INDICATION: Midline chest pain, shortness of breath, tachycardia TECHNIQUE: PA and lateral views COMPARISON: 03/28/2019 2 view chest FINDINGS: Normal heart size. No hilar or mediastinal enlargement. No pulmonary infiltrate or consolid ation, pleural effusion or pulmonary vascular congestion or pneumothorax is detected. Degenerative sp urring of the thoracic spine. IMPRESSION: No active cardiopulmonary disease Reviewed, dictated and finalized at location A. AL COUNCIL MEMBER
--- NOTE | 2020-06-28 11:50 | ECG_ITS ---
Measurements Intervals [place] Rate: 85 P: 54 NC: 191 QRS: -26 QRSD: 96 T: 23 QT: 394 QTc: 470 Interpretive Statements SINUS RHYTHM INCOMPLETE RIGHT BUNDLE BRANCH BLOCK BASELINE ARTIFACT- II, III, AVL, AVF, V2 BORDERLINE ECG Electronically Signed On 06-28-2020 12:19:11 [employer] NECK WHIPPER by Maycol Chopra D.O.
[2020-06-28] MEDS: ASPIRIN 81 MG CHEWABLE TABLET 324 MG PO (11:59)
--- NOTE | 2020-06-28 12:05 | ED.CHESTPAIN ---
HPI - Chest Pain General Chief Complaint: Chest Pain Stated Complaint: chest pain, short of breath, arm numbness. Time Seen by Provider: 06/28/20 11:56 History of Present Illness HPI narrative: 64 yo male w/ h/o htn, CAD presents to the ED with chest pain. Intermittent substernal chest pain for the past 3 days. Dull in quality. Associated with SOB. Non-exertional. No precipitating factors identified. He had balloon angioplasty in 1986, no issues since that time. Related Data Home Medications Medication Instructions Recorded Confirmed labetalol 100 mg PO BID 03/28/19 02/06/20 aspirin [Children's Aspirin] 81 mg PO QAM 01/25/20 02/06/20 Allergies Allergy/AdvReac Type Severity Reaction Status Date / Time No Known Allergies Allergy Verified 06/28/20 12:03 Review of Systems Review of Systems: All systems reviewed & are unremarkable except as noted in HPI and below Constitutional: Constitutional: Denies chills Cardiovascular: Cardiovascular: Reports chest pain Respiratory: Respiratory: Reports dyspnea Gastrointestinal: Gastrointestinal: Denies nausea and Denies vomiting Musculoskeletal: Musculoskeletal: Denies myalgias Neurologic: Denies dizziness and Denies weakness Psychiatric: Psychiatric: Denies anxiety PMF Past Medical History Medical History Chronic GERD Chronic kidney disease, stage 3 Baseline creatinine is between 1.3 and 1.50. Colon polyps Coronary artery disease With history of angioplasty in 1986. Negative stress test in March 2019. Erectile dysfunction Gout Hyperlipidemia Hypertension Hypertensive kidney disease with CKD stage III Osteoarthritis Prostate cancer (~2010) Status post prostatectomy. Surgical History Surgical History History of angioplasty (~1986) History of arthroplasty of left knee (~02/06/20) History of back surgery Cyst removed from back. History of cardiac catheterization (~1986) History of incisional hernia repair History of prostatectomy (~07/01/10) For prostate cancer. Status post tendon repair Repair of bilateral quadriceps tendon rupture. Family History Family History Mother Diabetes mellitus Hypertension Father Carcinoma of colon Diabetes mellitus Hypertension Sibling Diabetes mellitus Other Family history of malignant neoplasm Social History Social History Social History: Surrogate decision maker: Madiha Stallworth, . Code status: Full code. Smoking status: Never smoker Second hand tobacco smoke exposure: No Alcohol intake: current Drinks per week: 9 Substance use: never Additional living arrangements comments: Lives in [place] with his . He has 5 children. Additional occupation/education comments: Retired from the [employer]. Gender identity (if verbalized by the patient): Male Spiritual care concerns: No Agree to blood products: Yes Exam Const: General: healthy appearing, no acute distress and alert Orientation/consciousness: patient oriented x3 HENMT: Head: normal to inspection Neck: Neck: normal visual inspection and no lymphadenopathy Chest: Chest palpation & inspection: no tenderness Resp: Effort & Inspection: normal respiratory effort Auscultation: clear to auscultation bilaterally, no rales, no rhonchi and no wheezes Cardio: Jugular venous distension: no JVD Rate: regular rate Rhythm: regular rhythm Heart sounds: no murmurs GI: Inspection: non-distended GI Palp: Yes Soft to palpation and No Tenderness to palpation present (GI) Skin: General skin exam: normal color Neuro: General: patient oriented x3 and moves all extremities Speech: normal speech Extrem: General: no edema Psych: Appearance: well kempt Affect: norm
[2020-06-28 12:12] LABS: Basophils Percent Auto 0.4 % (0.2-1.2); Eosinophils Percent Auto 0.4 % (0-4.4); Hematocrit 45.7 % (42.0-52.0); Hemoglobin 15.2 g/dL (14.0-18.0); Immature Granulocyte Absolute 0.03 K/mm3 (0.00-0.031); Immature Granulocyte Percent A 0.3 % (0-0.5); Lymphocytes Absolute Auto 3.04 K/mm3 (0.9-3.2); Lymphocytes Percent Auto 27.6 % (18.3-44.2); Mean Corpuscular HGB Conc 33.3 g/dl (32-36); Mean Corpuscular Hemoglobin 31.3 pg (26-34); Mean Platelet Volume 10.4 fl (7.4-10.4); Monocytes Absolute Auto 0.9 K/mm3 (0.1-0.6); Neutrophils Percent Auto 63.3 % (45.5-73.1); Platelet Count Result 267 k/mm3 (150-375); Red Blood Count 4.86 M/mm3 (4.6-6.20); Red Cell Distribution Width 12.1 % (11.5-14.5)
[2020-06-28 12:21] LABS: Prothrombin Time 13.7 Seconds (11.1-14.7)
[2020-06-28 12:22] LABS: Partial Thromboplastin Time 28.3 SECONDS (22.3-36.8)
[2020-06-28 12:23] LABS: Anion Gap 10 mmol/L (8-16); Blood Urea Nitrogen 15 mg/dL (9-20); Calcium 9.8 mg/dL (8.4-10.2); Carbon Dioxide 31 mmol/L (22-30); Chloride 102 mmol/L (98-107); Estimated CRCL calculation 71 ml/min; Estimated Glomerular Filt Rate > 60; Glucose 109 mg/dL (75-110); Potassium 3.1 mmol/L (3.4-5.0); Sodium 143 mmol/L (137-145)
[2020-06-28 12:35] LABS: Troponin I < 0.012 ng/mL (0.000-0.034)
[2020-06-28 15:49] LABS: Troponin I < 0.012 ng/mL (0.000-0.034)
== END 2020-06-28 17:42 | disposition home or self-care (01) ==
PROVIDERS: Emergency Provider Emergency Medicine; PCP Internal Medicine
DX: R07.2 Precordial pain (principal); I25.10 Atherosclerotic heart disease of native coronary artery without angina pectoris; K21.9 Gastro-esophageal reflux disease without esophagitis; I12.9 Hypertensive chronic kidney disease with stage 1 through stage 4 chronic kidney disease, or unspecified chronic kidney disease; N18.30 Chronic kidney disease, stage 3 unspecified; E78.5 Hyperlipidemia, unspecified; M10.9 Gout, unspecified; M19.90 Unspecified osteoarthritis, unspecified site; Z85.46 Personal history of malignant neoplasm of prostate; Z90.79 Acquired absence of other genital organ(s); Z96.651 Presence of right artificial knee joint; I45.10 Unspecified right bundle-branch block
CPT/HCPCS: 36415; 71046; 80048; 84484; 85025; 85610; 85730; 93005; 99284; A9270

== ENCOUNTER 2021-10-23 08:50 | Outpatient (CLI) | payer BC, SELFPAY ==
[2021-10-23 09:45] LABS: Alanine Aminotransferase 46 U/L (6-50); Albumin Level 4.8 g/dL (3.5-5.1); Alkaline Phosphatase 83 U/L (38-126); Anion Gap 7 mmol/L (8-16); Aspartate Amino Transferase 55 U/L (17-59); Bilirubin,Total 0.6 mg/dL (0.2-1.3); Blood Urea Nitrogen 16 mg/dL (9-20); Calcium 9.2 mg/dL (8.4-10.2); Carbon Dioxide 30 mmol/L (22-30); Chloride 102 mmol/L (98-107); Cholesterol 306 mg/dL (0-200); Estimated Glomerular Filt Rate > 60; Glucose 113 mg/dL (65-110); HDL Direct 64 mg/dL; Potassium 3.1 mmol/L (3.4-5.0); Sodium 139 mmol/L (137-145); Triglycerides 337 mg/dL (<150)
[2021-10-23 09:56] LABS: LDL Cholesterol Direct 168 mg/dL
== END 2021-10-23 08:51 | disposition home or self-care (01) ==
LOC: ANHLAB 08:53
PROVIDERS: PCP Internal Medicine; Visit Provider Internal Medicine
DX: E78.2 Mixed hyperlipidemia (principal); I10 Essential (primary) hypertension
CPT/HCPCS: 36415; 80053; 80061

== ENCOUNTER 2022-01-26 14:59 | Outpatient (CLI) | payer BC, SELFPAY ==
[2022-01-26 19:29] LABS: Hemoglobin A1C 4.2 % (<5.7)
[2022-01-26 19:30] LABS: Alanine Aminotransferase 48 U/L (6-50); Albumin Level 4.7 g/dL (3.5-5.1); Alkaline Phosphatase 86 U/L (38-126); Anion Gap 12 mmol/L (8-16); Aspartate Amino Transferase 51 U/L (17-59); Bilirubin,Total 0.5 mg/dL (0.2-1.3); Blood Urea Nitrogen 17 mg/dL (9-20); Calcium 9.1 mg/dL (8.4-10.2); Carbon Dioxide 27 mmol/L (22-30); Chloride 101 mmol/L (98-107); Estimated Glomerular Filt Rate > 60; Glucose 110 mg/dL (65-110); Potassium 3.2 mmol/L (3.4-5.0); Sodium 140 mmol/L (137-145)
[2022-01-26 20:09] LABS: Appearance Urine Clear (Clear); Bilirubin Urine Negative (Negative); Blood Urine Negative (Negative); Color Urine Yellow (Yellow); Glucose Urine UA Negative (Negative); Ketones Urine Negative (Negative); Leukocyte Esterase Ur Negative LEU/UL (NEGATIVE); Nitrate Urine Negative (Negative); Protein Urine 2+ mg/dL (Negative); Urobilinogen Urine 0.2 mg/dL (<2.0)
[2022-01-26 20:18] LABS: Bacteria Urine Trace /hpf; RBC Urine 0-2 /hpf (0-2)
[2022-01-26 20:21] LABS: Add Urine Microscopic? YES
== END 2022-01-26 15:00 | disposition home or self-care (01) ==
LOC: ANHGOSHLAB 15:01
PROVIDERS: PCP Family Medicine; Visit Provider Family Medicine
DX: R30.0 Dysuria (principal); I10 Essential (primary) hypertension; R73.9 Hyperglycemia, unspecified; R73.01 Impaired fasting glucose
CPT/HCPCS: 36415; 80053; 81001; 83036

== ENCOUNTER 2022-06-01 15:34 | Observation (INO) | payer BC, SELFPAY ==
[2022-06-01] VITALS (26 sets, daily range): BP systolic 128–188; BP diastolic 72–109; PULSE 66–91; RESP 13–38; TEMP 35.8–36.7; O2SAT 93–100; BMI 30.4
--- NOTE | ~2022-06-01 | NM_ITS ---
EXAMINATION: NM donte stress w perfusion DATE: 06/02/2022 12:52 INDICATION: Chest pain. TECHNIQUE: Rest images were obtained following intravenous administration of 10.4 mCi Tc99m tetrofosm in (Myoview). The patient was infused intravenously with Lexiscan (regadenoson). Then, 34.9 mCi Tc99m tetrofosmin (Myoview) was administered intravenously, and stress images were obtained. Data was lorelei nstructed into short axis and horizontal and vertical long axis SPECT images. Gated SPECT images were also obtained. COMPARISON: Myocardial perfusion imaging 03/29/2019 FINDINGS: There is no definite reversible or fixed perfusion abnormality to suggest ischemia or infar ction. There is no segmental wall motion abnormality. Left ventricular ejection fraction measures 6 3%. IMPRESSION: 1. No definite ischemia or infarct. 2. Normal left ventricular ejection fraction measuring 63%. Reviewed, dictated and finalized at location A. UCTION FLOATER
--- NOTE | ~2022-06-01 | XR_ITS ---
EXAMINATION: XR chest 2V DATE: 06/01/2022 15:54 INDICATION: Chest pain TECHNIQUE: PA and lateral views of the chest are obtained. COMPARISON: 06/28/2020 FINDINGS: The lungs are free of acute opacities. No pleural effusion or pneumothorax. The cardiomedia stinal silhouette is normal. There is moderate thoracic spondylosis. IMPRESSION: 1. No acute cardiopulmonary abnormality. Reviewed, dictated and finalized at location B. UTILITY OPERATOR
--- NOTE | 2022-06-01 15:35 | ECG_ITS ---
Measurements Intervals [place] Rate: 86 P: 47 MT: 188 QRS: -35 QRSD: 110 T: 31 QT: 402 QTc: 481 Interpretive Statements SINUS RHYTHM LEFT AXIS DEVIATION INCOMPLETE RIGHT BUNDLE BRANCH BLOCK VOLTAGE CRITERIA FOR LVH NONSPECIFIC ST ELEVATION- ANTEROLAT/INF LEADS BASELINE ARTIFACT- I, III, AVF BORDERLINE ECG COMPARED TO ECG 06/28/2020 11:56:56 LEFT AXIS DEVIATION NOW PRESENT Electronically Signed On 06-01-2022 15:51:09 [employer] DIVISION CHIEF by Maycol Chopra D.O.
[2022-06-01 15:50] LABS: Basophils Absolute Auto 0.1 K/mm3 (0.0-0.1); Basophils Percent Auto 0.5 % (0.2-1.2); Eosinophils Absolute Auto 0.1 K/mm3 (0-0.3); Eosinophils Percent Auto 0.6 % (0-4.4); Hematocrit 47.2 % (42.0-52.0); Hemoglobin 15.6 g/dL (14.0-18.0); Immature Granulocyte Absolute 0.03 K/mm3 (0.00-0.031); Immature Granulocyte Percent A 0.2 % (0-0.5); Lymphocytes Percent Auto 29.9 % (18.3-44.2); Mean Corpuscular HGB Conc 33.1 g/dl (32-36); Mean Corpuscular Hemoglobin 33.1 pg (26-34); Mean Corpuscular Volume 100.2 fl (80-100); Mean Platelet Volume 10.3 fl (7.4-10.4); Monocytes Percent Auto 7.9 % (2.6-8.5); Neutrophils Absolute Auto 7.5 K/mm3 (1.3-6.7); Neutrophils Percent Auto 60.9 % (45.5-73.1); Platelet Count Result 285 k/mm3 (150-375); Red Blood Count 4.71 M/mm3 (4.6-6.20); Red Cell Distribution Width 11.8 % (11.5-14.5); White Blood Count 12.4 K/mm3 (4.5-10.0)
[2022-06-01 16:03] LABS: INR 1.1; Partial Thromboplastin Time 29.3 SECONDS (22.3-36.8); Prothrombin Time 13.4 Seconds (11.1-14.7)
[2022-06-01 16:04] LABS: Alanine Aminotransferase 47 U/L (6-50); Alkaline Phosphatase 73 U/L (38-126); Anion Gap 8 mmol/L (8-16); Aspartate Amino Transferase 46 U/L (17-59); Bilirubin,Total 0.8 mg/dL (0.2-1.3); Blood Urea Nitrogen 16 mg/dL (9-20); Calcium 9.6 mg/dL (8.4-10.2); Carbon Dioxide 28 mmol/L (22-30); Chloride 101 mmol/L (98-107); Estimated CRCL calculation 79 ml/min; Estimated Glomerular Filt Rate > 60; Glucose 95 mg/dL (65-110); Lipase 51 U/L (23-300); Potassium 3.2 mmol/L (3.4-5.0); Sodium 137 mmol/L (137-145)
[2022-06-01 16:15] LABS: Troponin I < 0.012 ng/mL (0.000-0.034)
[2022-06-01] MEDS: ASPIRIN 81 MG CHEWABLE TABLET 324 MG PO (16:53)
--- NOTE | 2022-06-01 17:26 | ED.CHESTPAIN ---
HPI - Chest Pain General Chief Complaint: Chest Pain Stated Complaint: chest pain Time Seen by Provider: 06/01/22 15:55 History of Present Illness HPI narrative: Patient is a 66-year-old male who presents ER with chest pain. Intermittent over the last week. Radiates into the left jaw and down the left arm. Has tingling in the arm. Occurs with exertion. Lasts 15 minutes. No diaphoresis. No history of heart disease. Reports mother had an AL in her 70s. No fevers or chills or sweats. No cough. No recent injury. Related Data Allergies Allergy/AdvReac Type Severity Reaction Status Date / Time No Known Allergies Allergy Verified 05/11/22 15:22 Review of Systems Review of Systems: All systems reviewed & are unremarkable except as noted in HPI and below Constitutional: Constitutional: Denies chills, Denies fatigue and Denies fever(s) Cardiovascular: Cardiovascular: Reports chest pain, Denies rapid heart rate and Reports radiating jaw, neck or arm pain Respiratory: Respiratory: Denies cough and Denies dyspnea Gastrointestinal: Gastrointestinal: Denies abdominal pain, Denies nausea and Denies vomiting Neurologic: Denies focal weakness and Denies numbness Comments: Arm tingling PMFSH Past Medical History Medical History Chronic GERD Chronic kidney disease, stage 3 Baseline creatinine is between 1.3 and 1.50. Colon polyps Coronary artery disease With history of angioplasty in 1986. Negative stress test in March 2019. Erectile dysfunction Gout Hyperlipidemia Hypertension Hypertensive kidney disease with CKD stage III Osteoarthritis Prostate cancer (~2010) Status post prostatectomy. Surgical History Surgical History History of angioplasty (~1986) History of arthroplasty of left knee (~02/06/20) History of back surgery Cyst removed from back. History of cardiac catheterization (~1986) History of incisional hernia repair History of prostatectomy (~07/01/10) For prostate cancer. Status post tendon repair Repair of bilateral quadriceps tendon rupture. Family History Family History Mother Diabetes mellitus Hypertension Father Carcinoma of colon Diabetes mellitus Hypertension Sibling Diabetes mellitus Other Family history of malignant neoplasm Social History Social History (Reviewed 05/11/22 @ 15:22 by JEET Monzon Social History: Surrogate decision maker: Madiah Stallworth, . Code status: Full code. Smoking status: Never smoker Second hand tobacco smoke exposure: No Alcohol intake: current Drinks per week: 9 Substance use: never Lack of Transportation: No Lack of Food: Never True Current Housing: I Have Housing Concerned About Future Housing: No Difficulty Paying Gas/Electric Bills: No Difficulty Paying for Meds: No Currently Unemployed: No Education: Bachelor's Degree Difficulty w/ Childcare or Family Care: No Living arrangements: with family Additional living arrangements comments: Lives in [place] with his . He has 5 children. Occupation/Education: retired Additional occupation/education comments: Retired from the [employer]. Gender identity (if verbalized by the patient): Male Spiritual care concerns: No Agree to blood products: Yes Exam Narrative: GENERAL: Well-appearing, well-nourished, and in no acute distress. HEAD: Normocephalic, atraumatic. ENT: Mucous membranes moist. NECK: Supple. CHEST: Clear to auscultation. No respiratory distress. HEART: Regular rate and rhythm. Normal peripheral pulses. ABDOMEN: Soft, nontender, nondistended. EXTREMITIES: Normal range of motion. No edema. SKIN: Warm, dry, no rash. NEURO: Alert and oriented x3. PSYCH: Normal mood and affect. Course Course Emergency Course: Admit to hospital
[2022-06-01 19:13] LABS: Troponin I < 0.012 ng/mL (0.000-0.034)
[2022-06-01 19:58] LABS: Influenza A QL RT-PCR Negative (Negative); Influenza B QL RT-PCR Negative (Negative); SARS-CoV-2 RNA PCR Negative
--- NOTE | 2022-06-01 20:31 | ADMGEN ---
This patient, Ashkan Stallworth, was admitted to IMU Room 209-. Patient/family oriented to hospital policies and general routines including ID bracelet, bed and alarms, visiting hours, pain management, procedures, bathroom and other care routines, personal items, smoking policy, room service/diet, and visiting hours. Information on how to activate the Rapid Response Team has been discussed. Patient/Family are encouraged to report perceived risks to care and to ask questions if they do not understand what they are told or what they should do.
--- NOTE | 2022-06-01 20:51 | PM.IMHP ---
H&P: HPI History of Present Illness Date/Time: 06/01/22 20:51 Chief Complaint: Chest pain Narrative: This is a 66-year-old male with past medical history significant for hypertension, dyslipidemia. Patient presents to the emergency room due to chest pain localized to the precordial area with radiation to the jaw to the arm and the neck has been going on and off for the last 2 weeks or so patient states that noted pain after shoveling snow a couple of weeks ago came on and the next day however not while doing strenuous physical activity Pain a cares a rest or with activity he is rating it at a 0/10 at the present time he has no nausea or vomiting or diaphoresis or lightheadedness or palpitations with it. Preliminary workup has been essentially nonrevealing. Patient is been admitted for further evaluation management and treatment. Review of Systems Review of Systems: Precordial chest pain with radiation to the neck shoulder arm Constitutional: Constitutional: Denies chills, Denies fever(s), Denies malaise, Denies night sweats and Denies weakness Eyes: Eyes: Denies change in vision ENT: Denies dysphagia, Denies vertigo, Denies dizziness and Denies odynophagia Cardiovascular: Cardiovascular: Reports chest pain, Reports chest pain at rest, Reports chest pain with activity, Denies irregular heart rhythm, Denies leg edema, Denies lightheadedness, Reports radiating jaw, neck or arm pain, Denies palpitations and Denies dyspnea Respiratory: Respiratory: Denies chest congestion, Denies cough, Denies excessive phlegm production and Denies pain on inspiration Gastrointestinal: Gastrointestinal: Denies abdominal pain, Denies dyspepsia, Denies heartburn, Denies diarrhea, Denies nausea and Denies vomiting Genitourinary: Genitourinary: Denies dysuria and Denies flank pain Musculoskeletal: Musculoskeletal: Denies back pain, Denies joint swelling and Denies muscle weakness Integumentary/Breasts: Skin/Breast: Denies rash Neurologic: Denies vertigo, Denies dizziness, Denies focal weakness and Denies Sensory deficit (Neuro) Psychiatric: Psychiatric: Reports no additional psychiatric complaints and Reports as per HPI Endocrine: Endocrine: Denies cold intolerance, Denies flushing, Denies heat intolerance, Denies polyphagia, Denies polydipsia and Denies palpitations Hematologic/Lymphatic: Hematologic/Lymphatic: Reports no additional hematologic/lymphatic complaints and Reports as per HPI Allergic/Immunologic: Allergic/Immunologic: Reports no additional allergic/immunologic complaints and Reports as per HPI [facility] Past Medical History Medical History Chronic GERD Chronic kidney disease, stage 3 Baseline creatinine is between 1.3 and 1.50. Colon polyps Coronary artery disease With history of angioplasty in 1986. Negative stress test in March 2019. Erectile dysfunction Gout Hyperlipidemia Hypertension Hypertensive kidney disease with CKD stage III Osteoarthritis Prostate cancer (~2010) Status post prostatectomy. Surgical History Surgical History History of angioplasty (~1986) History of arthroplasty of left knee (~02/06/20) History of back surgery Cyst removed from back. History of cardiac catheterization (~1986) History of incisional hernia repair History of prostatectomy (~07/01/10) For prostate cancer. Status post tendon repair Repair of bilateral quadriceps tendon rupture. Family History Family History Mother Diabetes mellitus Hypertension Father Carcinoma of colon Diabetes mellitus Hypertension Sibling Diabetes mellitus Other Family history of malignant neoplasm Social History Social History Social History: Surrogate decision maker: Madiha Stallworth, . Code status: Full code.
[2022-06-01 21:57] LABS: Troponin I < 0.012 ng/mL (0.000-0.034)
[2022-06-02] VITALS (10 sets, daily range): BP systolic 133–155; BP diastolic 74–84; PULSE 63–82; RESP 18–20; TEMP 36.4–36.5; O2SAT 98–100
--- NOTE | 2022-06-02 | ECHO_ITS ---
Patient Info Name: Ashkan Stallworth Age: 66 years : 1955 Gender: Male Ht: 75 in Wt: 243 lbs BSA: 2.44 m2 HR: 88 bpm BP: 133 / 74 mmHg Heart Rhythm: Sinus Rhythm Exam Date: 06/02/2022 8:31 AM Exam Location: [facility] Patient Status: Outpatient Admit Date: 06/01/2022 Staff Ordering Physician: Genaro Tamez MD Lens Dotter: Chapo [place]un, ALEC, RT Attending Provider: Frances Dennison DO Referring Physician: Joi MOYER; Exam Type: CA echo dop color flow w con Study Info Indications R07.9 - Chest pain, unspecified Complete two-dimensional, color flow and Doppler transthoracic echocardiogram is performed with contrast to opacify the left ventricle and to improve the deliniation of the left ventricle endocardial borders. Strain analysis performed. Summary 1. Left ventricular chamber dimension is normal. 2. Left ventricular systolic function is normal, estimated at 65-70%. 3. There is mildly increased left ventricular wall thickness. 4. The left ventricular diastolic function is grade I diastolic dysfunction. 5. Right ventricular systolic function is normal. 6. The mitral valve has thickened leaflets. 7. The mitral valve annulus is mildly calcified. 8. There is mild tricuspid valve regurgitation. Left Ventricle Left ventricular chamber dimension is normal. Left ventricular systolic function is normal, estimated at 65-70%. There is mildly increased left ventricular wall thickness. The left ventricular diastolic function is grade I diastolic dysfunction. Global longitudinal strain is abnormal at -14 %. Right Ventricle Right ventricular chamber dimension is normal. Right ventricular systolic function is normal. Left Atria Left atrial chamber dimension is normal. Right Atria Right atrial chamber dimension is normal. Atrial Septum Intact interatrial septum visualized by color flow imaging. Aortic Valve The aortic valve is trileaflet. There is mild aortic valve sclerosis. There is no aortic valve stenosis. There is no aortic valve regurgitation. Pulmonic Valve The pulmonic valve is not well visualized. Mitral Valve The mitral valve has thickened leaflets. There is no mitral valve stenosis. There is trace mitral valve regurgitation. The mitral valve annulus is mildly calcified. Tricuspid Valve There is mild tricuspid valve regurgitation. Pericardium/Pleural There is no pericardial effusion. Inferior Vena Cava Normal inferior vena cava with >50% collapse upon inspiration consistent with normal right atrial pressure, 3 mmHg. Aorta The aortic root size at the sinus of Valsalva is normal. Left Ventricular Outflow Tract Name Value Normal LVOT 2D LVOT Diameter 2.27 cm LVOT Doppler LVOT Peak Gradient 3 mmHg LVOT Mean Gradient 2 mmHg LVOT VTI 18.46 cm LVOT VTI/AV VTI Ratio 0.86 LVOT Stroke Volume 74.83 ml LVOT CO 5.85 l/min LVOT CI 2.40 L/min/m2
--- NOTE | 2022-06-02 01:41 | EST_ITS ---
Patient Info Name: Ashkan Stallworth Age: 66 years : 1955 Gender: Male Ht: 75 in Wt: 243 lbs BSA: 2.44 m2 HR: 78 bpm BP: 169 / 89 mmHg Heart Rhythm: Sinus Rhythm Exam Date: 06/02/2022 12:04 PM Exam Location: [facility] Stress Patient Status: Outpatient Admit Date: 06/01/2022 Staff Ordering Physician: Genaro Tamez MD Attending Provider: Frances Dennison DO Exercise Technologist: Zora Hobson, CT Nurse: TERRY LEÓN Exam Type: CA stress donte w NM Study Info Indications R07.9 - Chest pain, unspecified A regadenoson stress test was performed. Summary 1. No abnormal ST/T wave changes diagnostic of ischemia with Lexiscan. 2. Occasional PVCs. 3. Please correlate with nuclear medicine images, reported separately. Protocol: Lexiscan Stress ECG Details Stage: REST Duration (min): 2 min : 15 sec HR (bpm): 79 SBP (mmHg): 169 DBP (mmHg): 89 Stage: REST Duration (min): 9 min : 10 sec HR (bpm): 78 SBP (mmHg): 169 DBP (mmHg): 89 Stage: STAGE 1 Duration (min): 1 min : 0 sec HR (bpm): 108 SBP (mmHg): 169 DBP (mmHg): 89 Stage: RECOVERY Duration (min): 1 min : 0 sec HR (bpm): 88 SBP (mmHg): 151 DBP (mmHg): 75 Stage: RECOVERY Duration (min): 2 min : 0 sec HR (bpm): 92 SBP (mmHg): 151 DBP (mmHg): 75 Stage: RECOVERY Duration (min): 3 min : 0 sec HR (bpm): 89 SBP (mmHg): 166 DBP (mmHg): 75 Stage: RECOVERY Duration (min): 3 min : 6 sec HR (bpm): 89 SBP (mmHg): 166 DBP (mmHg): 75 Rest HR: 78 bpm Peak HR: 108 bpm Rest Sys BP: 169 mmHg Peak Sys BP: 166 mmHg Max Pred HR: 156 bpm % Max Pred HR: 69 % Target HR: 133 bpm Max RPP: 17,928 bpm*mmHg Total Time: 1 min : 0 sec Rest Dozier BP: 89 mmHg Peak Dozier BP: 75 mmHg Total Dose: 0.4 mg Resting ECG Sinus rhythm. Incomplete right bundle branch block. Stress ECG Sinus tachycardia. Incomplete right bundle branch block. No abnormal ST/T wave changes diagnostic of ischemia with Lexiscan. Arrhythmias Occasional PVCs. Report Signatures
[2022-06-02] MEDS: PERFLUTREN LIPID MICROSPHERES 1.5 ML VIAL DILUTED TO 10 ML TOTAL VOLUME IV PUSH (08:52)
--- NOTE | 2022-06-02 08:53 | IVDEFINITY ---
Prior to administration of IV Definity the patient was educated on the risks and benefits of the imaging enhancing agent including potential adverse side effects. The patient verbalized understanding. Allergies were verified. No exclusion criteria were identified and at least one of the following inclusion criteria were met: 1) physician request, 2) patient technically difficult to image (per the [place] [employer]ocardi[employer] guidelines of two or more segments not discernable within the apical view), or 3) questionable left ventricular function. ?
--- NOTE | 2022-06-02 10:38 | PM.CNCAR ---
Assessment and Plan Assessment and plan (1) Chest pain: Code(s): R07.9 - Chest pain, unspecified Status: Acute Assessment and Plan: Atypical sounding chest pain with negative serial troponins and EKG without any ischemic changes. However, he does have risk factors for CAD so stress testing was performed and was negative. No further inpatient cardiology workup is indicated. Continue risk factor modification for CAD. Recommend close follow up with primary care provider. (2) Hypertension: Qualifiers: Hypertension type: essential hypertension Qualified Code(s): I10 - Essential (primary) hypertension Code(s): I10 - Essential (primary) hypertension Status: Chronic Assessment and Plan: Above goal. Recommend follow up with PCP (3) Mixed hyperlipidemia: Code(s): E78.2 - Mixed hyperlipidemia Status: Acute Assessment and Plan: On statin. History of Present Illness History of Present Illness Consult date/time: 06/02/22 10:38 Requesting physician: Frances Dennison DO Consult reason: chest pain Reason For Visit: chest pain Narrative: Mr. Stallworth is a 66 year old male with a medical history of hypertension and hyperlipidemia that according to the patient have been relatively well-controlled. This is a patient who presented to the emergency department with a chief complaint of chest pain. He has been having intermittent chest pain for a couple of weeks. He first noticed the pain when he was shoveling snow. Since that time, the pain has been intermittent and spontaneous, not seemingly associated with any activity. He does not note any specific aggregating or alleviating factors but says the discomfort comes and goes. Currently, he is resting in bed comfortably and has no chest pain or complaints of any kind Review of Systems Constitutional: Constitutional: Denies chills, Denies fever(s), Denies headache(s) and Denies malaise Eyes: Eyes: Denies change in vision ENT: Reports Normal hearing present, Denies dizziness, Denies headache(s) and Denies hearing loss Cardiovascular: Cardiovascular: Reports chest pain, Reports chest pain at rest, Denies chest pain with activity, Denies syncope, Denies leg edema, Denies palpitations, Denies dyspnea and Denies dyspnea on exertion Respiratory: Respiratory: Denies cough, Denies dyspnea, Denies dyspnea on exertion and Denies wheezing Gastrointestinal: Gastrointestinal: Denies abdominal pain, Denies constipation and Denies diarrhea Genitourinary: Genitourinary: Denies hematuria and Denies dysuria Musculoskeletal: Musculoskeletal: Denies myalgias, Denies arthralgias and Denies muscle cramps Integumentary/Breasts: Skin/Breast: Denies wounds Neurologic: Reports Normal hearing present, Denies confusion, Denies dizziness, Denies syncope and Denies headache(s) Psychiatric: Psychiatric: Denies anxiety, Denies confusion and Denies depression Endocrine: Endocrine: Denies cold intolerance, Denies flushing, Denies heat intolerance and Denies palpitations Hematologic/Lymphatic: Hematologic/Lymphatic: Denies easy bleeding and Denies easy bruising Allergic/Immunologic: Allergic/Immunologic: Denies wheezing PMFSH Past Medical History Medical History Chronic GERD Chronic kidney disease, stage 3 Baseline creatinine is between 1.3 and 1.50. Colon polyps Coronary artery disease With history of angioplasty in 1986. Negative stress test in March 2019. Erectile dysfunction Gout Hyperlipidemia Hypertension Hypertensive kidney disease with CKD stage III Osteoarthritis Prostate cancer (~2010) Status post prostatectomy. Surgical History Surgical History History of angioplasty (~1986) History of arthroplasty of left knee (~02/06/20) History of back surgery Cyst removed from back. History of cardiac catheterization
--- NOTE | 2022-06-02 14:30 | PM.DS ---
DS: Admitting Diagnosis Discharge Date 06/02/22 Admitting Diagnosis chest pain DS: Summary Hospital Course Hospital Course: 66-year-old male with past medical history significant for hypertension, dyslipidemia.? Patient presents to the emergency room due to chest pain localized to the precordial area with radiation to the jaw to the arm and the neck has been going on and off for the last 2 weeks or so. Cardiology was consulted and recommended stress testing. Telemetry was monitored and was within normal limits. Troponin was negative x3. Stress test was negative. Cardiology recommended discharged in stable condition with close outpatient follow-up by primary care. Time Spent with Patient Time attestation: Total time spent providing and/or coordinating discharge services: DS: Data Data Completed and Pending Labs on day of discharge: Labs from last 24 hours 06/01/22 06/01/22 06/01/22 21:19 19:04 18:43 WBC RBC Hgb Hct MCV MCH MCHC RDW Plt Count MPV Immature Gran % (Auto) Neut % (Auto) Lymph % (Auto) Iron % (Auto) Eos % (Auto) Baso % (Auto) Lymph # (Auto) Iron # (Auto) Eos # (Auto) Baso # (Auto) Abs Immat Gran (auto) Absolute Neuts (auto) Absolute Nucleated RBC Nucleated RBC % PT INR APTT Sodium Potassium Chloride Carbon Dioxide Anion Gap BUN Creatinine Estim Creat Clear Calc Estimated GFR Glucose Calcium Total Bilirubin AST ALT Alkaline Phosphatase Troponin I < 0.012 < 0.012 Total Protein Albumin Lipase Influenza A (RT-PCR) Negative Influenza B (RT-PCR) Negative SARS-CoV-2 RNA (RT-PCR) Negative 06/01/22 06/01/22 06/01/22 15:44 15:44 15:44 WBC 12.4 H RBC 4.71 Hgb 15.6 Hct 47.2 MCV 100.2 H MCH 33.1 MCHC 33.1 RDW 11.8 Plt Count 285 MPV 10.3 Immature Gran % (Auto) 0.2 Neut % (Auto) 60.9 Lymph % (Auto) 29.9 Iron % (Auto) 7.9 Eos % (Auto) 0.6 Baso % (Auto) 0.5 Lymph # (Auto) 3.70 H Iron # (Auto) 1.0 H Eos # (Auto) 0.1 Baso # (Auto) 0.1 Abs Immat Gran (auto) 0.03 Absolute Neuts (auto) 7.5 H Absolute Nucleated RBC 0.0 Nucleated RBC % 0.0 PT 13.4 INR 1.1 APTT 29.3 Sodium 137 Potassium 3.2 L Chloride 101 Carbon Dioxide 28 Anion Gap 8 BUN 16 Creatinine 1.20 Estim Creat Clear Calc 79 Estimated GFR > 60 Glucose 95 Calcium 9.6 Total Bilirubin 0.8 AST 46 ALT 47 Alkaline Phosphatase 73 Troponin I < 0.012 Total Protein 9.0 H Albumin 5.0 Lipase 51 Influenza A (RT-PCR) Influenza B (RT-PCR) SARS-CoV-2 RNA (RT-PCR) Discharge Plan Discharge Consulting providers: Shannan Haddad ; Maycol Chopra ; Bryson Gayle ; Tristian Cordova ; Shreyas Connor V. Discharging Clinician: Frances Dennison Patient Disposition: Home, Self-Care Activity: unlimited Diet: heart healthy Patient Instructions: Antibiotic Form, Chest Pain (DC) Stand Alone Forms: General Discharge Information Follow-up/Referrals: Tristian Cordova MD [Physician] - 2 Weeks Discharge Medications: New nitroglycerin [Nitrostat] 0.4 mg Tablet, Sublingual 0.4 mg sublingual Q5MIN PRN (Reason: Chest Pain) 30 Days Qty: 10 0RF Continued amlodipine 10 mg tablet 10 mg PO DAILY labetalol 100 mg tablet 100 mg PO BID Qty: 180 4RF potassium chloride 20 mEq tablet extended release 20 meq PO DAILY Qty: 90 4RF Rx Instructions: Take one tablet by mouth once daily No Action atorvastatin 40 mg tablet 40 mg PO DAILY Qty: 90 1RF Date of admission: 06/01/22 18:20 Primary Care Provider: Chapo Grover Admitting Provider: Genaro Tamez V. Attending physician on admission: Frances Dennison Condition: Stable
== END 2022-06-02 16:30 | disposition home or self-care (01) ==
LOC: ANHED 18:23 → ANHIMU 20:06
PROVIDERS: Admitting Provider Internal Medicine; Emergency Provider Emergency Medicine; PCP Family Medicine; Visit Provider Student in an Organized Health Care Education/Training Program
DX: R07.9 Chest pain, unspecified (principal); E78.2 Mixed hyperlipidemia; Z20.822 Contact with and (suspected) exposure to COVID-19; K21.9 Gastro-esophageal reflux disease without esophagitis; I25.10 Atherosclerotic heart disease of native coronary artery without angina pectoris; I12.9 Hypertensive chronic kidney disease with stage 1 through stage 4 chronic kidney disease, or unspecified chronic kidney disease; N18.30 Chronic kidney disease, stage 3 unspecified; F10.90 Alcohol use, unspecified, uncomplicated; I25.83 Coronary atherosclerosis due to lipid rich plaque; M10.9 Gout, unspecified; Z85.46 Personal history of malignant neoplasm of prostate; Z82.49 Family history of ischemic heart disease and other diseases of the circulatory system; Z79.899 Other long term (current) drug therapy
CPT/HCPCS: 36415; 71046; 78452; 80053; 83690; 84484; 85025; 85610; 85730; 87636; 93005; 93017; 93306; 96374; 99285; A9270; A9502; C8929; G0378; J2785; Q9957

== ENCOUNTER 2022-11-13 08:05 | Outpatient (CLI) | payer MEDICARE, SELFPAY ==
[2022-11-13 19:52] LABS: Alanine Aminotransferase 62 U/L (6-50); Albumin Level 4.4 g/dL (3.5-5.1); Alkaline Phosphatase 59 U/L (38-126); Anion Gap 3 mmol/L (8-16); Aspartate Amino Transferase 53 U/L (17-59); Bilirubin,Total 0.8 mg/dL (0.2-1.3); Blood Urea Nitrogen 15 mg/dL (9-20); Calcium 9.2 mg/dL (8.4-10.2); Carbon Dioxide 33 mmol/L (22-30); Chloride 104 mmol/L (98-107); Cholesterol 227 mg/dL (0-200); Estimated Glomerular Filt Rate > 60; Glucose 98 mg/dL (65-110); HDL Direct 60 mg/dL; LDL Cholesterol Direct 114 mg/dL; Potassium 3.3 mmol/L (3.4-5.0); Sodium 140 mmol/L (137-145); Triglycerides 242 mg/dL (<150)
[2022-11-13 20:07] LABS: Prostate Specific Antigen < 0.1 ng/mL (< OR = 4.0)
== END 2022-11-13 08:06 | disposition home or self-care (01) ==
LOC: ANHGOSHLAB 08:07
PROVIDERS: PCP Family Medicine; Visit Provider Family Medicine
DX: E78.2 Mixed hyperlipidemia (principal); Z13.228 Encounter for screening for other metabolic disorders; Z12.5 Encounter for screening for malignant neoplasm of prostate
CPT/HCPCS: 36415; 80053; 80061; 84153; G0103

== ENCOUNTER 2023-08-25 00:53 | Day surgery (SDC) | payer MEDICARE, SELFPAY ==
[2023-08-16 10:04] VITALS: BMI 33.2
[2023-08-25 12:28] VITALS: BP 140/88; PULSE 82; RESP 18; TEMP 36.3; O2SAT 99
[2023-08-25] MEDS: LACTATED RINGERS 1,000 ML 150 ML IV CONT (12:36)
--- NOTE | 2023-08-25 12:57 | WPDANESEPPF ---
Anes - Initial Pre Proc Eval Procedure: Operation Date: 08/25/23 13:30 Proposed Procedures p Colonoscopy - Wisam Kim MD Date/Time: 08/25/23 12:57 Surgeon: Wisam Kim MD Pre Op Diagnosis: Personal history colon polyps Patient Data Age: 68 Gender: M Height: 1.91 m Weight: 119.3 kg Last Vital Signs Temp 97.4 F L 08/25/23 12:28 Pulse 82 08/25/23 12:28 Resp 18 08/25/23 12:28 BP 140/88 08/25/23 12:28 Pulse Ox 99 08/25/23 12:28 O2 Del Method Room Air 08/25/23 12:28 Allergies Allergy/AdvReac Type Severity Reaction Status Date / Time No Known Allergies Allergy Verified 08/25/23 12:26 Home Medications Medication Instructions Recorded Confirmed Type nitroglycerin 0.4 mg sublingual 0.4 mg sublingual Q5MIN PRN Chest 06/02/22 08/16/23 Rx tablet (Nitrostat) Pain 30 days #10 tabs labetalol 100 mg tablet 100 mg PO BID #180 tabs 03/29/23 08/16/23 Rx triamterene 37.5 See Rx Instructions .Route 03/30/23 08/16/23 Rx mg-hydrochlorothiazide 25 mg .COMPLEX #90 caps capsule potassium chloride 20 mEq 20 meq PO DAILY #90 tabs 05/11/23 08/16/23 Rx tablet,extended release sildenafil 100 mg tablet 100 mg PO PRN before sexual 07/08/23 08/16/23 Rx activity #18 tabs amlodipine 10 mg tablet 10 mg PO DAILY #90 tabs 08/02/23 08/16/23 Rx atorvastatin 40 mg tablet 40 mg PO DAILY #90 tabs 08/12/23 08/16/23 Rx Patient hx anesthesia problems: none Family hx anesthesia problems: none Results Review: All pre-operative results and documents have been reviewed as part of the pre-operative evaluation. [facility] Past Medical History Medical History Chronic GERD Chronic kidney disease, stage 3 Baseline creatinine is between 1.3 and 1.50. Colon polyps Coronary artery disease With history of angioplasty in 1986. Negative stress test in March 2019. Erectile dysfunction Gout Hyperlipidemia Hypertension Hypertensive kidney disease with CKD stage III Osteoarthritis Prostate cancer (~2010) Status post prostatectomy. Surgical History Surgical History History of angioplasty (~1986) History of arthroplasty of left knee (~02/06/20) History of back surgery Cyst removed from back. History of cardiac catheterization (~1986) History of incisional hernia repair History of prostatectomy (~07/01/10) For prostate cancer. Status post tendon repair Repair of bilateral quadriceps tendon rupture. Family History Family History Mother Diabetes mellitus Hypertension Father Carcinoma of colon Diabetes mellitus Hypertension Sibling Diabetes mellitus Other Family history of malignant neoplasm Social History Social History Social History: Surrogate decision maker: Madiha Stallworth, . Code status: Full code. Smoking status: Never smoker Second hand tobacco smoke exposure: No Alcohol intake: current Drinks per week: 6 Substance use: never Substance use type: does not use Lack of Transportation: YES Lack of Food: Never True Current Housing: I Have Housing Concerned About Future Housing: No Difficulty Paying Gas/Electric Bills: No Difficulty Paying for Meds: No Currently Unemployed: No Education: Bachelor's Degree Difficulty w/ Childcare or Family Care: No Living arrangements: with family Additional living arrangements comments: Lives in [place] with his . He has 5 children. Occupation/Education: retired Additional occupation/education comments: Retired from the [employer]. Gender identity (if verbalized by the patient): Male Sexual Orientation (if Verbalized by the Patient): Straight or Heterosexual Spiritual care concerns: No Agree to blood products: Yes Anes -
--- NOTE | 2023-08-25 13:54 | PM.HPGS ---
History of Present Illness History of Present Illness Consent: Risks, benefits, and alternatives have been discussed and questions answered. Patient agrees to proceed with procedure. Chief complaint: Personal history colon polyps Narrative: Ashkan Stallworth is a 68 year old male with colon polyp in 2018 Review of Systems Review of Systems: All systems reviewed & are unremarkable except as noted in HPI and below PMFSH Past Medical History Medical History (Updated 08/25/23 @ 13:55 by Wisam Kim MD) Adenomatous colon polyp Chronic GERD Chronic kidney disease, stage 3 Baseline creatinine is between 1.3 and 1.50. Colon polyps Coronary artery disease With history of angioplasty in 1986. Negative stress test in March 2019. Erectile dysfunction Gout Hyperlipidemia Hypertension Hypertensive kidney disease with CKD stage III Osteoarthritis Prostate cancer (~2010) Status post prostatectomy. Surgical History Surgical History History of angioplasty (~1986) History of arthroplasty of left knee (~02/06/20) History of back surgery Cyst removed from back. History of cardiac catheterization (~1986) History of incisional hernia repair History of prostatectomy (~07/01/10) For prostate cancer. Status post tendon repair Repair of bilateral quadriceps tendon rupture. Family History Family History Mother Diabetes mellitus Hypertension Father Carcinoma of colon Diabetes mellitus Hypertension Sibling Diabetes mellitus Other Family history of malignant neoplasm Social History Social History Social History: Surrogate decision maker: Madiha Stallworth, . Code status: Full code. Smoking status: Never smoker Second hand tobacco smoke exposure: No Alcohol intake: current Drinks per week: 6 Substance use: never Substance use type: does not use Lack of Transportation: YES Lack of Food: Never True Current Housing: I Have Housing Concerned About Future Housing: No Difficulty Paying Gas/Electric Bills: No Difficulty Paying for Meds: No Currently Unemployed: No Education: Bachelor's Degree Difficulty w/ Childcare or Family Care: No Living arrangements: with family Additional living arrangements comments: Lives in [place] with his . He has 5 children. Occupation/Education: retired Additional occupation/education comments: Retired from the [employer]. Gender identity (if verbalized by the patient): Male Sexual Orientation (if Verbalized by the Patient): Straight or Heterosexual Spiritual care concerns: No Agree to blood products: Yes Meds Home Medications and Allergies Home Medications Medication Instructions Recorded Confirmed Type nitroglycerin 0.4 mg sublingual 0.4 mg sublingual Q5MIN PRN Chest 06/02/22 08/16/23 Rx tablet (Nitrostat) Pain 30 days #10 tabs labetalol 100 mg tablet 100 mg PO BID #180 tabs 03/29/23 08/16/23 Rx triamterene 37.5 See Rx Instructions .Route 03/30/23 08/16/23 Rx mg-hydrochlorothiazide 25 mg .COMPLEX #90 caps capsule potassium chloride 20 mEq 20 meq PO DAILY #90 tabs 05/11/23 08/16/23 Rx tablet,extended release sildenafil 100 mg tablet 100 mg PO PRN before sexual 07/08/23 08/16/23 Rx activity #18 tabs amlodipine 10 mg tablet 10 mg PO DAILY #90 tabs 08/02/23 08/16/23 Rx atorvastatin 40 mg tablet 40 mg PO DAILY #90 tabs 08/12/23 08/16/23 Rx Allergies Allergy/AdvReac Type Severity Reaction Status Date / Time No Known Allergies Allergy Verified 08/25/23 12:26 Vital Signs Vital Signs - 24 hr 08/25/23 12:28 Temperature 97.4 F L Pulse Rate 82 Respiratory Rate 18 Blood Pressure 140/88 Pulse Oximetry 99 Oxygen Delivery Room Air Exam Const: General: comfortable and no acute distress HENMT: Fac
[2023-08-25 14:09] VITALS: BP 117/75; PULSE 75; RESP 19; O2SAT 94
[2023-08-25 14:19] VITALS: BP 118/74; PULSE 76; RESP 21; O2SAT 97
[2023-08-25 14:29] VITALS: BP 152/93; PULSE 84; RESP 21; O2SAT 97
== END 2023-08-25 14:37 | disposition home or self-care (01) ==
PROVIDERS: PCP Family Medicine; Visit Provider Internal Medicine Gastroenterology
PROC: 0DJD8ZZ Inspection of Lower Intestinal Tract, Via Natural or Artificial Opening Endoscopic (ICD-10-PCS; CPT 45378; principal; 2023-08-25 13:30)
DX: Z12.11 Encounter for screening for malignant neoplasm of colon (principal); K57.30 Diverticulosis of large intestine without perforation or abscess without bleeding; K64.8 Other hemorrhoids; Z86.010 Personal history of colon polyps; I12.9 Hypertensive chronic kidney disease with stage 1 through stage 4 chronic kidney disease, or unspecified chronic kidney disease; N18.30 Chronic kidney disease, stage 3 unspecified; I25.10 Atherosclerotic heart disease of native coronary artery without angina pectoris; E78.5 Hyperlipidemia, unspecified; M10.9 Gout, unspecified; Z85.46 Personal history of malignant neoplasm of prostate
CPT/HCPCS: G0105; J2704; J7120

== ENCOUNTER 2023-10-22 10:26 | Outpatient (CLI) | payer MEDICARE, SELFPAY ==
--- NOTE | ~2023-10-22 | MR_ITS ---
EXAMINATION: MR elbow RT wo con DATE: 10/22/2023 11:39 INDICATION: Unspecified injury of the right elbow TECHNIQUE: Magnetic resonance imaging (MRI) of the right elbow was performed without intravenous cont rast. Sequences included coronal, axial, and sagittal PD-weighted FS FSE and coronal, axial, and sagi ttal PD-weighted FSE. COMPARISON: None FINDINGS: Osseous/other: Normal alignment. No fracture. There is a 13 x 9 x 5 mm hyperintense lesion with well-defined low sig nal intensity likely sclerotic margins at the medial humeral condyle. There appears to be a tract ext ending to the posterior margin of the articular surface suggesting this could represent intraosseous ganglion cyst. Marrow signal is otherwise normal. Tendons: There is mild osteoarthritis at the elbow with mild partial-thickness cartilage loss with smooth ignacio dral surface along portions of the radius, ulna and distal humerus and tiny marginal osteophytes. Co mmon flexor tendon wad is normal. There is mild thickening and increased signal of the common extenso r tendon wad with tiny intrasubstance tear along its lateral epicondylar origin. Ligaments: The medial and lateral collateral ligament complexes are normal. Cubital tunnel: There is normal signal and caliber of the ulnar nerve. There is a tiny marginal ossified along the me dial margin of the olecranon which extends towards the cubital tunnel but which remains separate from the nerve by intervening fat plane. Fluid: Physiologic amount of fluid the elbow joint. IMPRESSION: 1. Mild tendinopathy and tiny intrasubstance tear at the lateral epicondylar origin of the common ext ensor tendon wad. 2. Nonspecific 13 x 9 x 5 mm lesion at the medial humeral condyle with suggestion of a peripheral scl erotic margin and without surrounding edema which would favor a benign lesion such as an intraosseous ganglion cyst. Recommend correlation with plain radiographs to confirm the nonaggressive appearance. Reviewed, dictated and finalized at location A. IMPRESSION: 1. Mild tendinopathy and tiny intrasubstance tear at the lateral epicondylar or igin of the common extensor tendon wad. 2. Nonspecific 13 x 9 x 5 mm lesion at the medial humeral condyle with suggesti on of a peripheral sclerotic margin and without surrounding edema which would f avor a benign lesion such as an intraosseous ganglion cyst. Recommend correlati on with plain radiographs to confirm the nonaggressive appearance.
== END 2023-10-22 10:27 | disposition home or self-care (01) ==
PROVIDERS: PCP Family Medicine; Visit Provider Family Medicine
DX: S59.901A Unspecified injury of right elbow, initial encounter (principal); X58.XXXA Exposure to other specified factors, initial encounter
CPT/HCPCS: 73221

== ENCOUNTER 2024-02-02 16:08 | Outpatient (CLI) | payer MEDICARE, SELFPAY ==
--- NOTE | ~2024-02-02 | XR_ITS ---
EXAMINATION: XR knee RT min 4V DATE: 02/02/2024 16:31 INDICATION: Right knee pain. TECHNIQUE: 4 views of right knee were obtained. COMPARISON: None. FINDINGS: Alignment is normal. No fracture. There is mild tricompartmental osteoarthritis. There is a small knee joint effusion. There is prominent heterotopic ossification of the distal quadriceps tend on. IMPRESSION: 1. Mild right knee osteoarthritis. 2. Small knee joint effusion. Reviewed, dictated and finalized at location A.
== END 2024-02-02 16:09 | disposition home or self-care (01) ==
LOC: ANHIMG 16:09
PROVIDERS: PCP Family Medicine; Visit Provider Orthopaedic Surgery
DX: M17.11 Unilateral primary osteoarthritis, right knee (principal); M25.461 Effusion, right knee
CPT/HCPCS: 73564

== ENCOUNTER 2024-07-24 07:55 | Emergency (ER) | payer MEDICARE, SELFPAY ==
--- NOTE | ~2024-07-24 | XR_ITS ---
XR ankle RT 2V Ordering provider: Macho Goyal III, History: . swelling pain TO RT ANKLE INJURY 10+ YRS AGO . Comparison: None. FINDINGS: BONES: Osteophyte formation is seen in the medial malleolus with possible fracture in the osteophyte. Bony fragment seen in the plantar aspect opposite the calcaneus which may be acute or chronic fractu re. Calcaneal spur is noted. JOINT SPACES: Normal. SOFT TISSUES: Soft tissue swelling over the lateral malleolus is seen. IMPRESSION: Bony fragments seen near to the medial malleolus and on the plantar aspect of the calcaneus bone whic h may be acute or old fractures. Clinical correlation and follow-up advised. Reviewed, dictated and finalized at location A. IMPRESSION: Bony fragments seen near to the medial malleolus and on the plantar aspect of t he calcaneus bone which may be acute or old fractures. Clinical correlation and follow-up advised.
[2024-07-24 08:01] VITALS: BP 158/89; PULSE 96; RESP 16; TEMP 36.6; O2SAT 97
--- OUTSIDE RECORDS SUMMARY | 2024-07-24 08:02 | XMS_ITS | Clinical Summary ---
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[employer] Gender Identity Not on file Sexual Orientation Not on file Plan of Treatment Health Maintenance Due Date Last Done Comments Hepatitis C Virus (HCV) Screening 1955 TdaP Immunization 1955 Colonoscopy 2002 Colorectal Cancer Screening 2002 Cologuard 07/06/2007 Immunochemical Fecal Occult Blood 07/06/2007 Pneumococcal Immunization (5 0+ years) (1 of 1 - PCV) 07/06/2007 Zoster Immunization (1 of 2) 07/06/2007 PSA Discussion 2012 Influenza Immunization (#1) 2024 02/07/2020 SARS-COV-2 Immunization ( - 2023-25 season) 2024 Respiratory Syncytial Virus (RSV) Immunization (Adult) (1 - 1-dose 75+ series) 2032 Hepatitis B Immunization Aged Out No longer eligible based on patient's age to complete this topic Meningococcal Immunization (ACWY) Aged Out No longer eligible based on patient's age to complete this topic Rotavirus Immunization Aged Out No lo nger eligible based on patient's age to complete this topic
--- NOTE | 2024-07-24 09:47 | ED.EXTPRO ---
HPI - Extremity Problem General Chief complaint: Extremity Problem,Nontraumatic Stated complaint: swelling right ankle Time Seen by Provider: 07/24/24 09:43 History of Present Illness HPI Narrative: Pt presents with right ankle pain without injury. Pt says he has had some pain and swelling for a few days but got worse last night. Pt syas it hurts to move. Pain and swelling are all lateral. Related Data Allergies Allergy/AdvReac Type Severity Reaction Status Date / Time No Known Allergies Allergy Verified 07/24/24 08:04 Review of Systems Review of Systems: All systems reviewed & are unremarkable except as noted in HPI and below [facility] Past Medical History Medical History Adenomatous colon polyp Cataract fragments in anterior chamber due to and not concurrent with cataract surgery Chronic GERD Chronic kidney disease, stage 3 Baseline creatinine is between 1.3 and 1.50. Colon polyps Coronary artery disease With history of angioplasty in 1986. Negative stress test in March 2019. Erectile dysfunction Gout Hyperlipidemia Hypertension Hypertensive kidney disease with CKD stage III Osteoarthritis Prostate cancer (~2010) Status post prostatectomy. Surgical History Surgical History History of angioplasty (~1986) History of arthroplasty of left knee (~02/06/20) History of back surgery Cyst removed from back. History of cardiac catheterization (~1986) History of incisional hernia repair History of prostatectomy (~07/01/10) For prostate cancer. Status post tendon repair Repair of bilateral quadriceps tendon rupture. Family History Family History Mother Diabetes mellitus Hypertension Father Carcinoma of colon Diabetes mellitus Hypertension Sibling Diabetes mellitus Other Family history of malignant neoplasm Social History Social History (Updated 11/29/23 @ 07:59 by Stefanie Hand CMA) Social History: Surrogate decision maker: Madiha Stallworth, . Code status: Full code. Smoking status: Never smoker Second hand tobacco smoke exposure: No Alcohol intake: current Drinks per week: 6 Substance use: never Substance use type: does not use Do You Feel Safe in your Home?: Yes Lack of Transportation: YES Lack of Food: Never True Current Housing: I Have Housing Concerned About Future Housing: No Difficulty Paying Gas/Electric Bills: No Difficulty Paying for Meds: No Currently Unemployed: No Education: Bachelor's Degree Difficulty w/ Childcare or Family Care: No Living arrangements: with family Additional living arrangements comments: Lives in [place] with his . He has 5 children. Occupation/Education: retired Additional occupation/education comments: Retired from the [employer]. Gender identity (if verbalized by the patient): Male Sexual Orientation (if Verbalized by the Patient): Straight or Heterosexual Spiritual care concerns: No Agree to blood products: Yes Exam Const: General: healthy appearing and no acute distress Nutritional Appearance: well nourished Orientation/consciousness: patient oriented x3 Limitations: no limitations Resp: Effort & Inspection: normal respiratory effort Cardio: Rate: regular rate Rhythm: regular rhythm Skin: General skin exam: normal color Rashes: no rashes Wounds: no wounds Neuro: General: patient oriented x3, moves all extremities and no focal motor deficits Speech: normal speech Extrem: Other: sweling and tenderness to lateral ankle and tender over atfl no instability Psych: Mental Status: mental status grossly normal Affect: normal affect Attitude: cooperative Course Vital Signs Vital signs: Vital Signs Temperature 98 F 07/24/24 08:01 Pulse Rate 96 07/24/24 08:01 Respiratory Rate 16 07/24/24 08:01 Blood Pressure 158/89 H 07/24/24 08:01 Pulse Oximetry 97 07/24/24 08:01 Oxygen Delivery Room Air 07/24/24 08:01 Temperature 98 F 07/24/24 08:01 Pulse Rate 80 07/24/24 10:15 Respiratory Rate 20 07/24/24 10:15 Blood Pressure 132/78 07/24/24 10:15 Pulse Oximetry 100 07/24/24 10:15 Oxygen Delivery Room Air 07/24/24 08:01 MDM - Extremity (Nontraumatic) MDM Narrative Medical decision making narrative: Pt presents with non traumatic right ankle pain. will get x ray. bony fragments noted medialo and calcaneous but no pain or selling there. neville ice elvate motrin and hydrocodone for pain crutches. follow up with pcp. Discharge Plan Discharge Clinical Impression: Ankle arthralgia Patient Disposition: Home, Self-Care Condition: Stable Instructions: Antibiotic Form, Ankle Sprain (ED), Gout (ED) Additional Instructions: neville ice elevated crutches wbat Patient Language: Romanian Prescriptions: New naproxen [Naprosyn] 500 mg tablet 500 mg PO BID Qty: 20 0RF hydrocodone-acetaminophen 5-325 mg tablet 1 tablet PO Q6H PRN (Reason: pain) Qty: 10 0RF No Action nitroglycerin [Nitrostat] 0.4 mg Tablet, Sublingual 0.4 mg sublingual Q5MIN PRN (Reason: Chest Pain) 30 Days Qty: 10 0RF labetalol 100 mg tablet 100 mg PO BID Qty: 180 4RF potassium chloride 20 mEq tablet extended release 20 meq PO DAILY Qty: 90 4RF Rx Instructions: Take one tablet by mouth once daily sildenafil 100 mg tablet 100 mg PO PRN Qty: 18 5RF Paxlovid 300 mg (150 mg x 2)-100 mg tablets,dose pack See Rx Instructions PO .COMPLEX Qty: 30 0RF Rx Instructions: take TWO 150 mg tablets of nirmatrelvir with ONE 100 mg tablet of ritonavir twice daily for 5 days PO amlodipine 10 mg tablet 10 mg PO DAILY Qty: 90 1RF atorvastatin 40 mg tablet 40 mg PO DAILY Qty: 90 1RF triamterene-hydrochlorothiazid 37.5-25 mg capsule See Rx Instructions .ROUTE .COMPLEX Qty: 90 0RF Dose Instruction: Take 1 capsule by mouth once daily Rx Instructions: Take 1 capsule by mouth once daily Follow-up/Referrals: Derrick Rojo, [Primary Care Provider] -
[2024-07-24 10:15] VITALS: BP 132/78; PULSE 80; RESP 20; O2SAT 100
--- OUTSIDE RECORDS SUMMARY | 2024-07-24 11:18 | XMS_ITS | Clinical Summary ---
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
== END 2024-07-24 10:17 | disposition home or self-care (01) ==
LOC: ANHED 09:59
PROVIDERS: Emergency Provider Emergency Medicine; PCP Internal Medicine
DX: M25.571 Pain in right ankle and joints of right foot (principal); K21.9 Gastro-esophageal reflux disease without esophagitis; N18.30 Chronic kidney disease, stage 3 unspecified; I25.10 Atherosclerotic heart disease of native coronary artery without angina pectoris; E78.5 Hyperlipidemia, unspecified; M10.9 Gout, unspecified; I12.9 Hypertensive chronic kidney disease with stage 1 through stage 4 chronic kidney disease, or unspecified chronic kidney disease; Z85.46 Personal history of malignant neoplasm of prostate; Z96.652 Presence of left artificial knee joint
CPT/HCPCS: 73600; 99283

== ENCOUNTER 2024-08-02 08:17 | Outpatient (CLI) | payer MEDICARE, SELFPAY ==
--- OUTSIDE RECORDS SUMMARY | 2024-08-02 08:28 | XMS_ITS | Clinical Summary ---
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
[2024-08-02 13:19] LABS: Alanine Aminotransferase 33 U/L (6-50); Albumin Level 4.4 g/dL (3.5-5.1); Alkaline Phosphatase 77 U/L (38-126); Anion Gap 10 mmol/L (4-12); Aspartate Amino Transferase 57 U/L (17-59); Bilirubin,Total 0.9 mg/dL (0.2-1.3); Blood Urea Nitrogen 14 mg/dL (9-20); Calcium 9.6 mg/dL (8.4-10.2); Carbon Dioxide 29 mmol/L (22-30); Chloride 102 mmol/L (98-107); Cholesterol 226 mg/dL (0-200); Estimated Glomerular Filt Rate 51; Glucose 115 mg/dL (65-110); HDL Direct 62 mg/dL; Magnesium 2.2 mg/dL (1.6-2.3); Sodium 141 mmol/L (137-145); Triglycerides 194 mg/dL (<150)
[2024-08-02 13:25] LABS: Basophils Absolute Auto 0.1 K/mm3 (0.0-0.1); Basophils Percent Auto 0.5 % (0.2-1.2); Eosinophils Absolute Auto 0.1 K/mm3 (0-0.3); Eosinophils Percent Auto 0.5 % (0-4.4); Hematocrit 43.6 % (42.0-52.0); Hemoglobin 13.8 g/dL (14.0-18.0); Immature Granulocyte Absolute 0.06 K/mm3 (0.00-0.031); Immature Granulocyte Percent A 0.5 % (0-0.5); Lymphocytes Absolute Auto 2.97 K/mm3 (0.9-3.2); Lymphocytes Percent Auto 24.2 % (18.3-44.2); Mean Corpuscular HGB Conc 31.7 g/dl (32-36); Mean Corpuscular Hemoglobin 31.9 pg (26-34); Mean Corpuscular Volume 100.9 fl (80-100); Mean Platelet Volume 10.5 fl (7.4-10.4); Monocytes Absolute Auto 0.9 K/mm3 (0.1-0.6); Monocytes Percent Auto 7.2 % (2.6-8.5); Neutrophils Absolute Auto 8.3 K/mm3 (1.3-6.7); Neutrophils Percent Auto 67.1 % (45.5-73.1); Platelet Count Result 319 k/mm3 (150-375); Red Blood Count 4.32 M/mm3 (4.6-6.20); Red Cell Distribution Width 11.9 % (11.5-14.5); White Blood Count 12.3 K/mm3 (4.5-10.0)
[2024-08-02 13:28] LABS: LDL Cholesterol Direct 122 mg/dL
[2024-08-02 13:46] LABS: Prostate Specific Antigen < 0.1 ng/mL (< OR = 4.0)
[2024-08-08 03:32] LABS: Apolipoprotein B 133 mg/dL
== END 2024-08-02 08:18 | disposition home or self-care (01) ==
LOC: ANHGOSHLAB 08:18
PROVIDERS: PCP Internal Medicine; Visit Provider Internal Medicine
DX: I10 Essential (primary) hypertension (principal); I25.10 Atherosclerotic heart disease of native coronary artery without angina pectoris; I25.83 Coronary atherosclerosis due to lipid rich plaque; E78.5 Hyperlipidemia, unspecified; E87.6 Hypokalemia; R74.8 Abnormal levels of other serum enzymes; Z85.46 Personal history of malignant neoplasm of prostate
CPT/HCPCS: 36415; 80053; 80061; 82172; 83735; 84153; 85025

== ENCOUNTER 2024-12-07 08:15 | Outpatient (RCR) | payer MEDICARE, SELFPAY ==
--- NOTE | 2024-11-08 13:35 | OPREHPOC ---
Outpatient Therapy Plan of Care This is a Multidisciplinary Plan of Care that may contain components documented by all disciplines (PT, OT, and ST.) PT Problem 1 PT Problem #1 Knowledge Deficit PT Goal 1 Goal / Goal Update 1*independent with HEP 2* correct standing posture and body mechanics with exercises and lifting from floor Target Visit 6 PT Problem 2 PT Problem #2 Pain PT Goal 1 Goal / Goal Update * no pain over R sacral area with exercises Target Visit 6 PT Problem 3 PT Problem #3 Impaired Flexibility PT Goal 1 Goal / Goal Update improve hip flexibility, to decrease pull on hip and lumbar areas: 1* piriformis stretch with report of equal tightness to his L anterior hip-quad length with prone knee flexion 2* R 105' 3* L 110' Target Visit 6 PT Problem 4 PT Problem #4 Impaired Strength PT Goal 1 Goal / Goal Update increase strength of trunk and hips, to improve stability to spine: single leg standing x 10 seconds with good stability 1* R 2* L 3* gross strength of R and L hips 4+/5 Target Visit 6
--- NOTE | 2024-11-08 13:35 | PTOPEVAL1 ---
Assessment and note entered by Leticia Yates, PT Evaluation Information Assessment Status Evaluation ICD-10 Condition Codes (PT) Pain in low back M54.50,Radiculopathy, lumbar region M54.16,Pain in right ankle and joints of right foot M25.571 Onset July 2024 Subjective Information swelling and pain in R ankle, occur about 2 weeks, then go away and later return; also have numbness , tingling and coldness in R >L foot and calf. have not been swelling or pain in the past 4 weeks no injury or trauma to R LE; medical history: L TKR, fatty tumor removed R lumbar; bilateral quad tendon tear with surgical repairs; activity: retired, active, golfs, independent with all activities; Reported Pain Level Pain Score 0: Self Report Additional Pain Score Comments no pain in R ankle or foot Assessment PT Clinical Summary Ashkan has the diagnosis of R foot and ankle pain. He reports in the past 4 weeks, the pain and swelling of his R foot and ankle has not occurred. LE functional scale rating of 10% limitation in activity level. With the pain, he also had numbness, tingling and coldness of his feet and lower legs. With the evaluation: he has postural changes of LE's in standing; decrease flexibility of R piriformis and anterior hip-quad; weakness of both hip extension and pain in R sacral area with prone on elbows and hip extension; Skilled PT services are indicated for modalities to decrease pain in lumbar-sacral area, with therapeutic exercises to increase strength and flexibility of hips & trunk and education for HEP and posture. Plan of Care Interventions Electrical Stimulation,Hot Pack/Cold Pack,Manual Therapy,Neuro Re-education,Therapeutic Activities, Therapeutic Exercise,Ultrasound,Other Other Interventions taping PT Services Indicated Yes Treatment Frequency and 1-2x/wk for 6 visits Duration These treatments will address the objective and functional deficits as defined above. The patient will be advanced safely and appropriately in order for the patient to progress towards his/her prior level of function. Additional exercises will be introduced and as well as a comprehensive home exercise program upon discharge, if needed, ?to ensure carryover of functional gains achieved in the clinic. This treatment plan has been reviewed and agreement upon by the patient.
--- NOTE | 2024-11-15 13:58 | PCPTNOTE ---
pt did not show for today's treatment. called and left voice mail message with reminder of next appt.
--- NOTE | 2024-11-22 14:30 | PCPTNOTE ---
No call no show, reason unknown. AKMonster
--- NOTE | 2024-11-27 12:47 | PCPTNOTE ---
N/S. Called pt to remind pa of today's appt and next on 12-04-24 @ 10:30. Requested pt to cancels if he no longer requires our service other whitten see pa, 12-04-24. AKS
--- NOTE | 2024-12-07 09:06 | OPREHPOC ---
Outpatient Therapy Plan of Care This is a Multidisciplinary Plan of Care that may contain components documented by all disciplines (PT, OT, and ST.) PT Problem 1 PT Problem #1 Knowledge Deficit PT Goal 1 Goal / Goal Update 1*independent with HEP 2* correct standing posture and body mechanics with exercises and lifting from floor 12-07-24 d/c goals met Target Visit 6 Progress Met PT Problem 2 PT Problem #2 Pain PT Goal 1 Goal / Goal Update * no pain over R sacral area with exercises 12-07-24 d/c goal met Target Visit 6 Progress Met PT Problem 3 PT Problem #3 Impaired Flexibility PT Goal 1 Goal / Goal Update improve hip flexibility, to decrease pull on hip and lumbar areas: 1* piriformis stretch with report of equal tightness to his L anterior hip-quad length with prone knee flexion 2* R 105' 3* L 110' 12-07-24 d/c goals met Target Visit 6 Progress Met PT Problem 4 PT Problem #4 Impaired Strength PT Goal 1 Goal / Goal Update increase strength of trunk and hips, to improve stability to spine: single leg standing x 10 seconds with good stability 1* R 2* L 3* gross strength of R and L hips 4+/5 12-07-24 d/c goals met Target Visit 6 Progress Met
--- NOTE | 2024-12-07 09:06 | PTOPDC ---
Assessment and note entered by Leticia Yates, PT Assessment Status Discharge ICD-10 Condition Codes (PT) Pain in low back M54.50,Radiculopathy, lumbar region M54.16,Pain in right ankle and joints of right foot M25.571 Onset July 2024 Subjective Information doing better, been trying to do the exercises every day; no pain for the past 2 weeks, but some stiffness and tightness;is able to do everything, golfed without any problems; ready to be finished with therapy. Reported Pain Level Pain Score 0: Self Report Additional Pain Score Comments no pain for the past 2 weeks in back or L leg; do have some stiffness, tightness; decrease tightness with tylenol; stretched before playing golf and it helped; Assessment PT Clinical Summary Ashkan has received 3 PT sessions. He did not show for 3 appointments. With today's assessment he has improved in all areas: reports no pain for the past 2 weeks, but has tightness and stiffness in his back; self assessment with LE functional scale rating of 6% limitation in activity level; increase strength of hips; increase flexibility of bilateral piriformis and anterior hip-quad muscles; education completed for HEP and body mechanics. The goals were achieved. Discharge PT. He is to continue with the HEP and monitoring his posture, body mechanics and pain management techniques. Plan of Care PT Services Indicated No
== END 2024-12-07 10:15 | disposition home or self-care (01) ==
LOC: ANHPT 08:15
PROVIDERS: PCP Internal Medicine; Visit Provider Nurse Practitioner
DX: M25.571 Pain in right ankle and joints of right foot (principal); M54.16 Radiculopathy, lumbar region; M54.50 Low back pain, unspecified
CPT/HCPCS: 97110; 97161; 97530

== ENCOUNTER 2025-02-12 08:13 | Outpatient (CLI) | payer MEDICARE, SELFPAY ==
--- OUTSIDE RECORDS SUMMARY | 2025-02-12 08:19 | XMS_ITS | Clinical Summary ---
Author Organization 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 Gender Identity Not on file Sexual Orientation Not on file Plan of Treatment Health Maintenance Due Date Last Done Comments Hepatitis C Virus (HCV) Screening 1955 TdaP Immunization 1955 Cologuard 2002 Colonoscopy 2002 Colorectal Cancer Screening 2002 Immunochemical Fecal Occult Blood 2002 Pneumococcal Immunization (5 0+ years) (1 of 1 - PCV) 07/06/2007 Zoster Immunization (1 of 2) 07/06/2007 Influenza Immunization (#1) 2025 02/07/2020 SARS-COV-2 Immunization ( - season) 2025 Respiratory Syncytial Virus (RSV) Immunization (Adult) (1 - 1-dose 75+ series) 2032 Hepatitis B Immunization Aged Out No longer eligible based on patient's age to complete this topic Human Papillomavirus (HPV) Immunization Aged Out No longer eligible b ased on patient's age to complete this topic Meningococcal Immunization (ACWY) Aged Out No longer eligible based on patient's age to complete this topic Rotavirus Immunization Aged Out No lo nger eligible based on patient's age to complete this topic
[2025-02-12 13:37] LABS: Hemoglobin A1C 4.4 % (<5.7)
[2025-02-12 13:49] LABS: Anion Gap 9 mmol/L (4-12); Blood Urea Nitrogen 17 mg/dL (9-20); Calcium 8.8 mg/dL (8.4-10.2); Carbon Dioxide 30 mmol/L (22-30); Chloride 99 mmol/L (98-107); Estimated Glomerular Filt Rate 57; Glucose 86 mg/dL (65-110); Magnesium 2.1 mg/dL (1.6-2.3); Potassium 2.5 mmol/L (3.4-5.0); Sodium 138 mmol/L (137-145)
[2025-02-12 14:40] LABS: Ferritin 1160.00 ng/mL (11.1-264)
[2025-02-12 14:42] LABS: Vitamin B12 196.0 pg/mL (239-931)
[2025-02-13 15:09] LABS: Albumin 3.9 g/dL (2.9-4.4); Alpha-1-Globulin 0.2 g/dL (0.0-0.4); Alpha-2-Globulin 0.7 g/dL (0.4-1.0); Gamma Globulin 1.0 g/dL (0.4-1.8)
[2025-02-14 13:09] LABS: Immunoglobulin A, Qn 316 mg/dL (61-437); Immunoglobulin G, Qn 1052 mg/dL (603-1613); Immunoglobulin M, Qn 27 mg/dL (20-172)
== END 2025-02-12 08:14 | disposition home or self-care (01) ==
LOC: ANHGOSHLAB 08:14
PROVIDERS: PCP Internal Medicine; Visit Provider Internal Medicine
DX: R73.9 Hyperglycemia, unspecified (principal); R74.8 Abnormal levels of other serum enzymes; E87.6 Hypokalemia; D72.829 Elevated white blood cell count, unspecified; I12.9 Hypertensive chronic kidney disease with stage 1 through stage 4 chronic kidney disease, or unspecified chronic kidney disease; N18.30 Chronic kidney disease, stage 3 unspecified; D64.9 Anemia, unspecified
CPT/HCPCS: 36415; 80048; 82607; 82728; 82746; 82784; 83036; 83735; 84155; 84165; 86334; 86335

== ENCOUNTER 2025-02-19 07:55 | Outpatient (CLI) | payer MEDICARE, SELFPAY ==
[2025-02-19 13:13] LABS: Iron 109 ug/dL (49-181)
[2025-02-19 13:21] LABS: INR 1.1; Prothrombin Time 13.7 Seconds (11.1-14.7)
[2025-02-19 13:23] LABS: Alanine Aminotransferase 67 U/L (6-50); Albumin Level 4.5 g/dL (3.5-5.1); Alkaline Phosphatase 79 U/L (38-126); Anion Gap 10 mmol/L (4-12); Aspartate Amino Transferase 106 U/L (17-59); Bilirubin,Total 1.0 mg/dL (0.2-1.3); Blood Urea Nitrogen 18 mg/dL (9-20); Calcium 9.5 mg/dL (8.4-10.2); Carbon Dioxide 29 mmol/L (22-30); Chloride 101 mmol/L (98-107); Estimated Glomerular Filt Rate 56; Glucose 96 mg/dL (65-110); Magnesium 2.5 mg/dL (1.6-2.3); Potassium 2.9 mmol/L (3.4-5.0); Sodium 140 mmol/L (137-145); Total Protein 8.1 g/dL (6.3-8.2)
[2025-02-19 13:34] LABS: Percent Iron Saturation 40 % (20-50)
[2025-02-19 13:41] LABS: Hepatitis B Surface Antigen Negative (Negative)
[2025-02-19 14:54] LABS: Ferritin 1220.00 ng/mL (11.1-264)
[2025-02-20 16:08] LABS: Deamidated Gliadin Abs, IgA 7 units (0-19); Deamidated Gliadin Abs, IgG 4 units (0-19); Immunoglobulin A, Qn 317 mg/dL (61-437)
== END 2025-02-19 07:56 | disposition home or self-care (01) ==
LOC: ANHGOSHLAB 07:56
PROVIDERS: PCP Internal Medicine; Visit Provider Internal Medicine
DX: R74.8 Abnormal levels of other serum enzymes (principal); E79.0 Hyperuricemia without signs of inflammatory arthritis and tophaceous disease; E87.6 Hypokalemia; N28.9 Disorder of kidney and ureter, unspecified
CPT/HCPCS: 36415; 80053; 82728; 82784; 83540; 83550; 83735; 85610; 86231; 86258; 86803; 87340

== ENCOUNTER 2025-02-21 12:15 | Outpatient (CLI) | payer MEDICARE, SELFPAY ==
--- OUTSIDE RECORDS SUMMARY | 2025-02-21 15:24 | XMS_ITS | Clinical Summary ---
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
--- NOTE | 2025-03-01 16:25 | WPDHOLTEREM ---
Holter/Event Monitor Holter/Event Monitor Date of procedure: 02/21/25 Holter/Event Procedure: 3-7 Day Holter Monitor Indications: Palpitations Conclusion: 1. 3 days holter monitor on 02/21/25. 2. Predominant rhythm is sinus rhythm. HR range 58-143 bpm; average HR 78 bpm. 3. There are rare premature supraventricular complexes. No supraventricular tachycardia. 4. There are rare premature ventricular complexes. No ventricular tachycardia. 5. No significant pauses greater than 3 seconds. 6. Patient reports 4 episodes of symptoms of heart fluttering, irregular beats, chest pain which demonstrate sinus rhythm, HR range 74-105 bpm with 2 episodes with PAC's.
== END 2025-02-21 12:16 | disposition home or self-care (01) ==
PROVIDERS: PCP Internal Medicine; Visit Provider Internal Medicine
DX: R00.2 Palpitations (principal)
CPT/HCPCS: 93242

== ENCOUNTER 2025-03-06 09:32 | Outpatient (CLI) | payer MEDICARE, SELFPAY ==
--- NOTE | ~2025-03-06 | US_ITS ---
Clinical history:Abnormal levels of other serum enzymes EXAM:Ultrasound abdomen limited TECHNIQUE:Multiple static grayscale images and color Doppler images were obtained of the abdomen. Comparisons:None available FINDINGS: Pancreatic duct is mildly dilated. The finding is nonspecific. A pancreatic mass is not identified but needs to be excluded. Evaluation of the pancreas is limited due to the patient's imaging characteristics and overlying bowel gas. A CT of the abdomen and pelvis with contrast is recommended. The liver is hyperechoic likely due to fatty infiltration and/or hepatocellular disease. Hepatopedal flow in the main portal vein. No sonographic Chun's sign. No gallbladder wall thickening. Small amount of sludge and tiny gallstones in the gallbladder. No sonographic evidence for acute cholecystitis at this time. Common duct measures 4.1 mm which is within normal limits. IMPRESSION: 1.Pancreatic duct is mildly dilated. The finding is nonspecific. A pancreatic mass is not identified but needs to be excluded. Evaluation of the pancreas is limited due to the patient's imaging characteristics and overlying bowel gas. A CT of the abdomen and pelvis with contrast is recommended. 2.The liver is hyperechoic likely due to fatty infiltration and/or hepatocellular disease. Attention on follow-up CT imaging. 3.Small amount of sludge and tiny gallstones in the gallbladder. No sonographic evidence for acute cholecystitis at this time. Reviewed, dictated and finalized at location Q. NG EXAMINER IMPRESSION: 1.Pancreatic duct is mildly dilated. The finding is nonspecific. A pancreatic m ass is not identified but needs to be excluded. Evaluation of the pancreas is l imited due to the patient's imaging characteristics and overlying bowel gas. A CT of the abdomen and pelvis with contrast is recommended. 2.The liver is hyperechoic likely due to fatty infiltration and/or hepatocellul ar disease. Attention on follow-up CT imaging. 3.Small amount of sludge and tiny gallstones in the gallbladder. No sonographic evidence for acute cholecystitis at this time.
--- OUTSIDE RECORDS SUMMARY | 2025-03-06 10:42 | XMS_ITS | Clinical Summary ---
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
== END 2025-03-06 09:33 | disposition home or self-care (01) ==
PROVIDERS: PCP Internal Medicine; Visit Provider Internal Medicine
DX: R74.8 Abnormal levels of other serum enzymes (principal); K80.20 Calculus of gallbladder without cholecystitis without obstruction; K86.89 Other specified diseases of pancreas; K76.89 Other specified diseases of liver
CPT/HCPCS: 76705

== ENCOUNTER 2025-03-21 09:20 | Outpatient (CLI) | payer MEDICARE, SELFPAY ==
--- NOTE | ~2025-03-21 | CT_ITS ---
EXAM/PROCEDURE: CT abdomen wo/w con HISTORY: R93.5 - Abnormal findings on diagnostic imaging of other ... COMPARISON: Ultrasound exam from March [address] exam from March 2018 TECHNIQUE: Pre and postcontrast enhanced CT of the abdomen performed. FINDINGS: On image 57 series 604, the pancreatic duct is slightly ectatic measuring 3.71 mm with the upper limits normal in 3 mm. No discretely defined lesion or mass seen within the pancreas. Liver gallbladder and adrenal glands appear normal. 2.1 cm cyst midpole in the left kidney and smaller bilateral renal cysts noted. No suspicious mass in the kidneys. Vascular structures appear patent. Regurgitation into the hepatic veins incidentally noted. No bulky lymphadenopathy or masses seen within the field of view. Bones appear intact with diffuse degenerative changes. Mild fibrosing appearing changes in lung bases, and 10 mm benign granuloma/nodule in the posterior right lung base. IMPRESSION: 1. Slightly distended proximal pancreatic duct measuring 3.7 mm with upper limits normal 3 mm. No discrete lesion or mass seen. If pancreatic pathology or lesion is suspected, correlation with MRI/MRCP may provide additional beneficial information. 2. Other findings as above. Reviewed, dictated and finalized at location A. LATION NOZZLEMAN IMPRESSION: 1. Slightly distended proximal pancreatic duct measuring 3.7 mm with upper limi ts normal 3 mm. No discrete lesion or mass seen. If pancreatic pathology or les ion is suspected, correlation with MRI/MRCP may provide additional beneficial i nformation. 2. Other findings as above.
--- OUTSIDE RECORDS SUMMARY | 2025-03-21 12:15 | XMS_ITS | Clinical Summary ---
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
== END 2025-03-21 09:21 | disposition home or self-care (01) ==
PROVIDERS: PCP Internal Medicine; Visit Provider Internal Medicine
DX: R93.5 Abnormal findings on diagnostic imaging of other abdominal regions, including retroperitoneum (principal); K86.89 Other specified diseases of pancreas; N28.1 Cyst of kidney, acquired; K76.5 Hepatic veno-occlusive disease
CPT/HCPCS: 74170; Q9967

== ENCOUNTER 2025-04-12 09:45 | Emergency (ER) | payer MEDICARE, SELFPAY ==
[2025-04-12] VITALS (26 sets, daily range): BP systolic 121–182; BP diastolic 73–103; PULSE 81–109; RESP 15–23; TEMP 36.7; O2SAT 93–100
--- NOTE | ~2025-04-12 | CT_ITS ---
EXAMINATION: CT brain wo con DATE: 04/12/2025 11:13 INDICATION: Syncope TECHNIQUE: Computed tomography (CT) of the head was performed without intravenous contrast. The dose-length product was 605.33 mGy-cm. COMPARISON: None FINDINGS: No gross intracranial mass effect or hemorrhage. No large acute ischemic event. Calvarial structures appear intact. IMPRESSION: 1. No gross intracranial mass effect or hemorrhage. Comment: For new onset or refractory seizure disorder particularly associated with trauma, correlation with follow-up nonemergent brain MRI recommended. Reviewed, dictated and finalized at location A. NING AND DEVELOPMENT MANAGER IMPRESSION: 1. No gross intracranial mass effect or hemorrhage. Comment: For new onset or refractory seizure disorder particularly associated w ith trauma, correlation with follow-up nonemergent brain MRI recommended.
--- NOTE | ~2025-04-12 | CT_ITS ---
EXAM/PROCEDURE: CTA chest abdomen pelvis HISTORY: cp, syncope, elev lactic, r/o dissection COMPARISON: CT abdomen pelvis March 21, 2025 TECHNIQUE: CT aortography of the chest abdomen and pelvis performed. IV contrast used. FINDINGS: ANGIOGRAPHIC FINDINGS: No thoracic aortic aneurysm or dissection. No ulceration or periaortic hematoma. Mild aphthous chronic calcifications present. The abdominal aorta is normal in size throughout with mild scattered calcified plaque disease. Pelvic inflow and outflow arteries are patent. Both renal and mesenteric arteries are patent. The celiac access also appears normal. NONANGIOGRAPHIC FINDINGs: 7 x 6 mm subpleural nodule medial right lower lobe image 81 series 4. Scattered fibrotic and atelectatic changes throughout the lung murphy, and a 1.3 cm benign granuloma also noted in the right lower lobe posterior segment. Heart size normal. Mild prominence of the proximal pancreatic duct again noted. 2.5 cm left renal cyst again noted. Diffuse degenerative changes throughout the bones. Ankylosis of the SI joints and calcification in the anterior longitudinal ligament in the thoracic spine noted. IMPRESSION: 1. Mild scattered aphthous chronic plaque disease in the aorta which otherwise appears normal. No aneurysm, dissection or acute arterial complication. 2. There are several incidental findings including subpleural nodule in the right lower lobe with follow-up chest CT recommended in 6 months. Also again noted mild prominence of the proximal pancreatic duct which could be better evaluated with abdominal MRI/MRCP as clinically appropriate. 3. Degenerative changes throughout the bones with evidence of ankylosing spondylitis also noted. Reviewed, dictated and finalized at location A. YPOP MACHINE OPERATOR IMPRESSION: 1. Mild scattered aphthous chronic plaque disease in the aorta which otherwise appears normal. No aneurysm, dissection or acute arterial complication. 2. There are several incidental findings including subpleural nodule in the rig ht lower lobe with follow-up chest CT recommended in 6 months. Also again noted mild prominence of the proximal pancreatic duct which could be better evaluate d with abdominal MRI/MRCP as clinically appropriate. 3. Degenerative changes throughout the bones with evidence of ankylosing spondy litis also noted.
--- NOTE | ~2025-04-12 | XR_ITS ---
EXAMINATION: XR chest 2V DATE: 04/12/2025 10:27 INDICATION: Syncope. Hypertension. Mid chest discomfort. TECHNIQUE: frontal and lateral views of the chest were obtained. COMPARISON: Chest radiograph dated 06/01/[address] dated abdomen 03/21/2025 FINDINGS: Unchanged linear band of discoid atelectasis/scarring at the medial left lower lung zone. No new airspace opacities, pulmonary edema, pleural effusion or pneumothorax. The cardiomediastinal silhouette is normal. Mild thoracic spondylosis with bridging osteophytes at multiple levels consistent with diffuse idiopathic skeletal hyperostosis (DISH). IMPRESSION: 1. No acute cardiopulmonary disease. Reviewed, dictated and finalized at location A. OR TUG CAPTAIN
--- NOTE | 2025-04-12 09:53 | ECG_ITS ---
Test Date: 2025-04-12 09:58:16 Measurements Intervals [place] Rate: 94 P: 38 SD: 176 QRS: -7 QRSD: 109 T: 33 QT: 393 QTc: 494 Interpretive Statements SINUS RHYTHM INCOMPLETE RIGHT BUNDLE BRANCH BLOCK NONSPECIFIC T-WAVE ABNORMALITY- ANT/INF LEADS BASELINE ARTIFACT- V3 BORDERLINE ECG No previous ECG available for comparison Electronically Signed On 04-12-2025 12:07:14 SPORTS EQUIPMENT REPAIRER by Maycol Chopra D.O.
[2025-04-12 10:25] LABS: Hematocrit 42.0 % (42.0-52.0); Hemoglobin 14.3 g/dL (14.0-18.0); Immature Granulocyte Percent A 0.6 % (0-0.5); Lymphocytes Absolute Auto 2.42 K/mm3 (0.9-3.2); Mean Corpuscular HGB Conc 34.0 g/dl (32-36); Mean Corpuscular Hemoglobin 31.9 pg (26-34); Mean Corpuscular Volume 93.8 fl (80-100); Nucleated Red Blood Cells Absolute Auto 0.000 K/mm3 (0.0-0.012); Nucleated Red Blood Cells Perc 0.0 % (0.0-0.2); Platelet Count Result 248 k/mm3 (150-375); Red Blood Count 4.48 M/mm3 (4.6-6.20); White Blood Count 13.3 K/mm3 (4.5-10.0)
[2025-04-12 10:37] LABS: INR 1.2; Prothrombin Time 14.7 Seconds (11.1-14.7)
[2025-04-12 10:38] LABS: Partial Thromboplastin Time 27.8 Seconds (22.3-36.8)
[2025-04-12 10:40] LABS: Alanine Aminotransferase 30 U/L (6-50); Albumin Level 4.9 g/dL (3.5-5.1); Alkaline Phosphatase 70 U/L (38-126); Anion Gap 14 mmol/L (4-12); Aspartate Amino Transferase 46 U/L (17-59); Bilirubin,Total 1.3 mg/dL (0.2-1.3); Blood Urea Nitrogen 15 mg/dL (9-20); Calcium 9.5 mg/dL (8.4-10.2); Carbon Dioxide 22 mmol/L (22-30); Chloride 99 mmol/L (98-107); Estimated CRCL calculation 56 ml/min; Estimated Glomerular Filt Rate 44; Glucose 117 mg/dL (65-110); Magnesium 1.9 mg/dL (1.6-2.3); Potassium 2.6 mmol/L (3.4-5.0); Sodium 135 mmol/L (137-145); Total Protein 8.4 g/dL (6.3-8.2)
[2025-04-12 10:49] LABS: Troponin I 0.014 ng/mL (0.000-0.034)
[2025-04-12] MEDS: POTASSIUM CHLORIDE INJ 40 MEQ in SODIUM CHLORIDE 0.9% IV 500 ML 130 MEQ IVPB (11:23)
[2025-04-12] MEDS: SODIUM CHLORIDE 0.9% IV 1,000 ML 999 ML IV CONT ×2 (11:24→14:29)
--- NOTE | 2025-04-12 11:59 | ED.SYNCOPE ---
HPI - Syncope General Chief Complaint: Syncope <LAWRENCE Veras Last Filed: 04/12/25 17:31> Stated Complaint: syncope-possible seizure <LAWRENCE Veras Last Filed: 04/12/25 17:31> Time Seen by Provider: 04/12/25 09:54 <LAWRENCE Veras Last Filed: 04/12/25 17:31> Source: patient <LAWRENCE Veras Last Filed: 04/12/25 17:31> Mode of arrival: ambulatory <LAWRENCE Veras Last Filed: 04/12/25 17:31> Limitations: no limitations <LAWRENCE Veras Last Filed: 04/12/25 17:31> History of Present Illness HPI narrative: Patient is a 69-year-old male who presents the ED with report of syncope versus seizure. Patient reports he was talking to his friend on the phone this morning when the next thing he knew he was on the ground getting helped up by his family members. at bedside reports she witnessed the episode. States patient was standing up talking on the phone, his knees began looking wobbly. He fell against the refrigerator and then fell fully to the ground, hitting his head on the ground. reports that patient was unresponsive, had full body shaking activity and foaming at his mouth. This lasted for approximately 1 minute. He then was confused and disoriented for several minutes afterwards. Denies urinary or bowel incontinence. EMS was called, however by the time of their arrival patient was more oriented and declined EMS transport. Patient states he feels back to normal currently. He does complain of some midsternal chest tightness. States he has had intermittent chest tightness over the past few years. He is prescribed nitro, but has not taken this in 2 years. He states he has passed out twice before recently. Denies feeling dizzy or lightheaded prior to the episode today. Denies previous history of seizures. Denies focal numbness or weakness, headache, vision changes. Patient mentioned he recently wore a 3 day Holter monitor due to palpitations and this was unremarkable. Patient also mentions taking two Viagra last night for sexual activity. <Silvia Kinney PA-C - Last Filed: 04/12/25 17:31> Related Data Home Medications: Home Medications ?Medication ?Instructions ?Recorded ?Confirmed ?Last Taken ?Type mecobalamin (vitamin B12) 1,000 1,000 mcg PO DAILY 02/12/25 Unknown History mcg chewable tablet <Silvia Kinney PA-C - Last Filed: 04/12/25 17:31> Allergies/Adverse Reactions: Allergies Allergy/AdvReac Type Severity Reaction Status Date / Time No Known Allergies Allergy Verified 04/12/25 10:05 <Silvia Kinney PA-C - Last Filed: 04/12/25 17:31> Review of Systems Review of Systems: All systems reviewed & are unremarkable except as noted in HPI. <Silvia Kinney PA-C - Last Filed: 04/12/25 17:31> All systems reviewed & are unremarkable except as noted in HPI and below <Silvia Kinney PA-C - Last Filed: 04/12/25 17:31> [facility] Past Medical History Medical History: Medical History History of prostate cancer Cataract fragments in anterior chamber due to and not concurrent with cataract surgery Adenomatous colon polyp Gout Erectile dysfunction Chronic kidney disease, stage 3 Baseline creatinine is between 1.3 and 1.50. Osteoarthritis Hypertension Coronary artery disease With history of angioplasty in 1986. Negative stress test in March 2019. Hypertensive kidney disease with CKD stage III Hyperlipidemia Chronic GERD Prostate cancer (~2010) Status post prostatectomy. Colon polyps <Silvia Kinney PA-C - Last Filed: 04/12/25 17:31> Surgical History Surgical History: Surgical History History of arthroplasty of left knee (~02/06/20) History of incisional hernia repair Status post tendon repair Repair of bilateral quadriceps tendon rupture. History of prostatectomy (~07/01/10) For prostate cancer. History of angioplasty (~1986) History of back surgery Cyst removed from back. History of cardiac catheterization (~1986) <Silvia Kinney PA-C - Last Filed: 04/12/25 17:31> Family History Family History: Family History Mother Diabetes mellitus Hypertension Father Carcinoma of colon Diabetes mellitus Hypertension Sibling Diabetes mellitus Other Family history of malignant neoplasm <Silvia Kinney PA-C - Last Filed: 04/12/25 17:31> Social History Social History: Social History Social History: Surrogate decision maker: Madiha Stallworth, . Code status: Full code. Smoking status: Never smoker Second hand tobacco smoke exposure: No Alcohol intake: current Drinks per week: 6 Substance use: never Substance use type: does not use Lack of Transportation: YES Lack of Food: Never True Current Housing: I Have Housing Concerned About Future Housing: No Difficulty Paying Gas/Electric Bills: No Difficulty Paying for Meds: No Currently Unemployed: No Education: Bachelor's Degree Difficulty w/ Childcare or Family Care: No Living arrangements: with family Additional living arrangements comments: Lives in [place] with his . He has 5 children. Occupation/Education: retired Additional occupation/education comments: Retired from the [employer]. Gender identity (if verbalized by the patient): Male Sexual Orientation (if Verbalized by the Patient): Straight or Heterosexual Spiritual care concerns: No Agree to blood products: Yes <Silvia Kinney PA-C - Last Filed: 04/12/25 17:31> Exam Narrative: GENERAL: Well appearing, obese with BMI of 32.5, non-toxic, in no acute distress. HEAD: Normocephalic. Contusion to posterior scalp w/o wounds or lacerations EYES: PERRL/EOMI, conjunctivae clear bilaterally. No nystagmus. NECK: Supple. No meningeal signs. RESPIRATORY: Airway patent, respirations nonlabored. Clear to auscultation bilaterally, no rales, rhonchi, wheezing. CARDIOVASCULAR: Regular rate and rhythm without murmurs, rubs, or gallops. Peripheral pulses 2+ and equal bilaterally. MUSCULOSKELETAL: Moves all extremities. No gross deformities. SKIN: Warm, dry, normal color. No rashes. NEURO: A&O X3. Speech clear. Follows commands. CN II-XII intact. Sensation grossly intact. Steady gait. No ataxic movements. Strength 5/5 in upper and lower extremities bilaterally. Fmgc-zd-mrhd and yettwv-xu-oiwe testing intact bilaterally. No pronator drift. Equal eeg tech strength bilaterally. PSYCHIATRIC: Appropriate mood and affect. Normal interaction. <Silvia Kinney PA-C - Last Filed: 04/12/25 17:31> Course PROPERTY MANAGEMENT ASSISTANT/PA Physician Supervision This visit was performed by both a physician and an [employer] Technician. I performed all aspects of the Medical Decision Making as documented. <Dakotah Barone MD - Last Filed: 04/12/25 18:06> Vital Signs Vital signs: Vital Signs Pulse Rate 100 04/12/25 09:54 Respiratory Rate 23 H 04/12/25 09:54 Blood Pressure 172/92 H 04/12/25 09:54 Pulse Oximetry 99 04/12/25 09:54 Temperature 98.1 F 04/12/25 09:55 Pulse Rate 93 04/12/25 16:16 Respiratory Rate 22 H 04/12/25 16:16 Blood Pressure 160/90 H 04/12/25 16:15 Pulse Oximetry 98 04/12/25 16:16 Oxygen Delivery Room Air 04/12/25 10:47 <Silvia Kinney PA-C - Last Filed: 04/12/25 17:31> Vital Signs Pulse Rate 100 04/12/25 09:54 Respiratory Rate 23 H 04/12/25 09:54 Blood Pressure 172/92 H 04/12/25 09:54 Pulse Oximetry 99 04/12/25 09:54 Temperature 98.1 F 04/12/25 09:55 Pulse Rate 93 04/12/25 16:16 Respiratory Rate 22 H 04/12/25 16:16 Blood Pressure 160/90 H 04/12/25 16:15 Pulse Oximetry 98 04/12/25 16:16 Oxygen Delivery Room Air 04/12/25 10:47 <Dakotah Barone MD - Last Filed: 04/12/25 18:06> Discharge Plan Discharge Clinical Impression: Seizure-like activity, Hypokalemia, STANLEY (acute kidney injury), Lactic acidosis Syncope Qualifiers: Syncope type: unspecified Qualified Code(s): R55 - Syncope and collapse Chest pain Qualifiers: Chest pain type: unspecified Qualified Code(s): R07.9 - Chest pain, unspecified <Silvia Kinney PA-C - Last Filed: 04/12/25 17:31> Patient Disposition: Acute Care Hospital <LAWRENCE Veras Last Filed: 04/12/25 17:31> Condition: Stable <LAWRENCE Veras Last Filed: 04/12/25 17:31> Patient Language: Hebrew <LAWRENCE Veras Last Filed: 04/12/25 17:31> Prescriptions: No Action nitroglycerin [Nitrostat] 0.4 mg tablet, sublingual 0.4 mg sublingual Q5MIN PRN (Reason: Chest Pain) 30 Days Qty: 10 0RF labetalol 100 mg tablet 100 mg PO BID Qty: 180 1RF triamterene-hydrochlorothiazid 37.5-25 mg capsule See Rx Instructions .ROUTE .COMPLEX Qty: 90 1RF Dose Instruction: Take 1 capsule by mouth once daily Rx Instructions: Take 1 capsule by mouth once daily potassium chloride 20 mEq tablet extended release 20 meq PO DAILY Qty: 90 4RF Rx Instructions: 2 tablets once daily for 3 days and then 1 tab daily or as directed by physician mecobalamin (vitamin B12) 1,000 mcg tablet,chewable 1,000 mcg PO DAILY sildenafil 100 mg tablet 100 mg PO PRN Qty: 18 5RF alprazolam [Xanax] 0.25 mg tablet See Rx Instructions PO .COMPLEX Qty: 2 0RF Rx Instructions: orally; Take one tablet 30 mins before MRI and one tablet right before MRI atorvastatin 40 mg tablet See Rx Instructions .ROUTE .COMPLEX Qty: 90 1RF Dose Instruction: Take 1 tablet by mouth once daily Rx Instructions: Take 1 tablet by mouth once daily amlodipine 10 mg tablet See Rx Instructions .ROUTE .COMPLEX Qty: 90 1RF Dose Instruction: Take 1 tablet by mouth once daily Rx Instructions: Take 1 tablet by mouth once daily <LAWRENCE Veras Last Filed: 04/12/25 17:31> Follow-up/Referrals: Derrick Rojo, DO [Primary Care Provider, Internal Medicine] <Silvia Kinney PA-C - Last Filed: 04/12/25 17:31> [facility] Narrative Medical decision making narrative: Patient presented to ED with seizure versus syncope episode Vital signs are stable upon arrival. Patient is neurologically intact upon my evaluation. No focal deficits. No cerebellar signs. A&O x4. CT brain without acute findings EKG w/ sinus rhythm, incomplete RBBB, no significant ST changes Baseline troponin 0.014. Will continue to trend Laboratory studies with leukocytosis of 13.3. Stable H&H. CMP with hypokalemia at 2.6. Patient has had similar hypokalemic records in the past. PO and IV replacement ordered. Anion gap of 14. Fluids initiated. Slight STANLEY. Creatinine today 1.59. Records show baseline around 1.2. Initial lactic acid elevated at 4.1. Concerning for possible acute seizure activity. Will continue to trend. Mag within normal range at 1.9. UA without evidence of infection. Chest x-ray is clear. CTA of chest/dissection study was obtained and without evidence of dissection, aneurysm, does show some incidental findings. Unclear etiology of patient's presentation today. Given lack of prodromal sx's, with concurrent CP, concerning for possible dysrhythmia/cardiogenic syncope. However with confusion, elevated lactic, shaking activity, concerning for possible first time seizure. Patient will require admission for further cardiac/neurologic testing. Unfortunately, we do not have neurology coverage here this weekend. Discussed this with family. They would prefer [facility] system. Discussed case with Dr. Varghese, neurology at [facility], agrees w/ plan for consult, recommended admit under hospitalist service. Discussed case with Dr. [place], hospitalist @ [facility], accepted patient for admission/transfer. Awaiting bed placement. Patient received bed. Transportation arranged. Patient and family in agreement with plan. <Silvia Kinney PA-C - Last Filed: 04/12/25 17:31> Differential Diagnosis Differential Diagnosis: ACS, aortic dissection, aortic aneurysm, syncope, intracranial bleeding, intracranial tumor, first time seizure, electrolyte derangement, dysrhythmia <Silvia Kinney PA-C - Last Filed: 04/12/25 17:31> Medical Records I have reviewed the following patient records and this information was taken into consideration when formulating the assessment and plan.: previous labs, previous ER visits, previous hospitalizations and previous clinic visits <Silvia Kinney PA-C - Last Filed: 04/12/25 17:31> Lab Data MDM Lab Attestation statement: I personally reviewed the patient's lab results. <Silvia Kinney PA-C - Last Filed: 04/12/25 17:31> Result diagrams: 04/12/25 10:11 04/12/25 10:11 <Silvia Kinney PA-C - Last Filed: 04/12/25 17:31> Labs: Lab Results 04/12/25 04/12/25 04/12/25 Range/Units 10:11 12:09 12:43 WBC 13.3 H (4.5-10.0) K/mm3 RBC 4.48 L (4.6-6.20) M/mm3 Hgb 14.3 (14.0-18.0) g/dL Hct 42.0 (42.0-52.0) % MCV 93.8 (80-100) fl MCH 31.9 (26-34) pg MCHC 34.0 (32-36) g/dl RDW 12.4 (11.5-14.5) % Plt Count 248 (150-375) k/mm3 MPV 10.0 (7.4-10.4) fl Immature Gran % (Auto) 0.6 H (0-0.5) % Neut % (Auto) 73.0 (45.5-73.1) % Lymph % (Auto) 18.2 L (18.3-44.2) % [place] % (Auto) 7.4 (2.6-8.5) % Eos % (Auto) 0.5 (0-4.4) % Baso % (Auto) 0.3 (0.2-1.2) % Lymph # (Auto) 2.42 (0.9-3.2) K/mm3 [place] # (Auto) 1.0 H (0.1-0.6) K/mm3 Eos # (Auto) 0.1 (0-0.3) K/mm3 Baso # (Auto) 0.0 (0.0-0.1) K/mm3 Abs Immat Gran (auto) 0.08 H (0.00-0.031) K/mm3 Absolute Neuts (auto) 9.7 H (1.3-6.7) K/mm3 Absolute Nucleated RBC 0.000 (0.0-0.012) K/mm3 Nucleated RBC % 0.0 (0.0-0.2) % PT 14.7 (11.1-14.7) Seconds INR 1.2 APTT 27.8 (22.3-36.8) Seconds Sodium 135 L (137-145) mmol/L Potassium 2.6 L* (3.4-5.0) mmol/L Chloride 99 (98-107) mmol/L Carbon Dioxide 22 (22-30) mmol/L Anion Gap 14 H (4-12) mmol/L BUN 15 (9-20) mg/dL Creatinine 1.59 H (0.7-1.3) mg/dL Estim Creat Clear Calc 56 ml/min Estimated GFR 44 L (59 - ) Glucose 117 H (65-110) mg/dL Lactic Acid 4.1 H* 4.1 H* (0.7-2.0) mmol/L Calcium 9.5 (8.4-10.2) mg/dL Magnesium 1.9 (1.6-2.3) mg/dL Total Bilirubin 1.3 (0.2-1.3) mg/dL AST 46 (17-59) U/L ALT 30 (6-50) U/L Alkaline Phosphatase 70 (38-126) U/L Troponin I 0.014 (0.000-0.034) ng/mL Total Protein 8.4 H (6.3-8.2) g/dL Albumin 4.9 (3.5-5.1) g/dL Urine Color Yellow (Yellow) Urine Appearance Clear (Clear) Urine pH 5.5 (5.0-9.0) Ur Specific [place] 1.039 H (1.001-1.035) Urine Protein 2+ H (Negative) mg/dL Urine Glucose (UA) Negative (Negative) mg/dL Urine Ketones Negative (Negative) mg/dL Ur Blood (Man) 1+ H (Negative) Urine Nitrate Negative (Negative) Urine Bilirubin Negative (Negative) Urine Urobilinogen 0.2 (<2.0) mg/dL Leukocyte Esterase Rfl Negative (Negative) NILSA/UL Urine RBC 0-2 (0-2) /hpf Urine WBC 0-5 (0-3) /hpf Ur Squamous Epith Cells None seen (Few) /hpf Urine Bacteria None seen /hpf Urine Casts 0-2 04/12/25 04/12/25 Range/Units 12:59 16:24 WBC (4.5-10.0) K/mm3 RBC (4.6-6.20) M/mm3 Hgb (14.0-18.0) g/dL Hct (42.0-52.0) % MCV (80-100) fl MCH (26-34) pg MCHC (32-36) g/dl RDW (11.5-14.5) % Plt Count (150-375) k/mm3 MPV (7.4-10.4) fl Immature Gran % (Auto) (0-0.5) % Neut % (Auto) (45.5-73.1) % Lymph % (Auto) (18.3-44.2) % [place] % (Auto) (2.6-8.5) % Eos % (Auto) (0-4.4) % Baso % (Auto) (0.2-1.2) % Lymph # (Auto) (0.9-3.2) K/mm3 [place] # (Auto) (0.1-0.6) K/mm3 Eos # (Auto) (0-0.3) K/mm3 Baso # (Auto) (0.0-0.1) K/mm3 Abs Immat Gran (auto) (0.00-0.031) K/mm3 Absolute Neuts (auto) (1.3-6.7) K/mm3 Absolute Nucleated RBC (0.0-0.012) K/mm3 Nucleated RBC % (0.0-0.2) % PT (11.1-14.7) Seconds INR APTT (22.3-36.8) Seconds Sodium (137-145) mmol/L Potassium (3.4-5.0) mmol/L Chloride (98-107) mmol/L Carbon Dioxide (22-30) mmol/L Anion Gap (4-12) mmol/L BUN (9-20) mg/dL Creatinine (0.7-1.3) mg/dL Estim Creat Clear Calc ml/min Estimated GFR (59 - ) Glucose (65-110) mg/dL Lactic Acid (0.7-2.0) mmol/L Calcium (8.4-10.2) mg/dL Magnesium (1.6-2.3) mg/dL Total Bilirubin (0.2-1.3) mg/dL AST (17-59) U/L ALT (6-50) U/L Alkaline Phosphatase (38-126) U/L Troponin I 0.014 0.015 (0.000-0.034) ng/mL Total Protein (6.3-8.2) g/dL Albumin (3.5-5.1) g/dL Urine Color (Yellow) Urine Appearance (Clear) Urine pH (5.0-9.0) Ur Specific [place] (1.001-1.035) Urine Protein (Negative) mg/dL Urine Glucose (UA) (Negative) mg/dL Urine Ketones (Negative) mg/dL Ur Blood (Man) (Negative) Urine Nitrate (Negative) Urine Bilirubin (Negative) Urine Urobilinogen (<2.0) mg/dL Leukocyte Esterase Rfl (Negative) NILSA/UL Urine RBC (0-2) /hpf Urine WBC (0-3) /hpf Ur Squamous Epith Cells (Few) /hpf Urine Bacteria /hpf Urine Casts <Silvia Kinney PA-C - Last Filed: 04/12/25 17:31> Lab Results 04/12/25 04/12/25 04/12/25 Range/Units 10:11 12:09 12:43 WBC 13.3 H (4.5-10.0) K/mm3 RBC 4.48 L (4.6-6.20) M/mm3 Hgb 14.3 (14.0-18.0) g/dL Hct 42.0 (42.0-52.0) % MCV 93.8 (80-100) fl MCH 31.9 (26-34) pg MCHC 34.0 (32-36) g/dl RDW 12.4 (11.5-14.5) % Plt Count 248 (150-375) k/mm3 MPV 10.0 (7.4-10.4) fl Immature Gran % (Auto) 0.6 H (0-0.5) % Neut % (Auto) 73.0 (45.5-73.1) % Lymph % (Auto) 18.2 L (18.3-44.2) % [place] % (Auto) 7.4 (2.6-8.5) % Eos % (Auto) 0.5 (0-4.4) % Baso % (Auto) 0.3 (0.2-1.2) % Lymph # (Auto) 2.42 (0.9-3.2) K/mm3 [place] # (Auto) 1.0 H (0.1-0.6) K/mm3 Eos # (Auto) 0.1 (0-0.3) K/mm3 Baso # (Auto) 0.0 (0.0-0.1) K/mm3 Abs Immat Gran (auto) 0.08 H (0.00-0.031) K/mm3 Absolute Neuts (auto) 9.7 H (1.3-6.7) K/mm3 Absolute Nucleated RBC 0.000 (0.0-0.012) K/mm3 Nucleated RBC % 0.0 (0.0-0.2) % PT 14.7 (11.1-14.7) Seconds INR 1.2 APTT 27.8 (22.3-36.8) Seconds Sodium 135 L (137-145) mmol/L Potassium 2.6 L* (3.4-5.0) mmol/L Chloride 99 (98-107) mmol/L Carbon Dioxide 22 (22-30) mmol/L Anion Gap 14 H (4-12) mmol/L BUN 15 (9-20) mg/dL Creatinine 1.59 H (0.7-1.3) mg/dL Estim Creat Clear Calc 56 ml/min Estimated GFR 44 L (59 - ) Glucose 117 H (65-110) mg/dL Lactic Acid 4.1 H* 4.1 H* (0.7-2.0) mmol/L Calcium 9.5 (8.4-10.2) mg/dL Magnesium 1.9 (1.6-2.3) mg/dL Total Bilirubin 1.3 (0.2-1.3) mg/dL AST 46 (17-59) U/L ALT 30 (6-50) U/L Alkaline Phosphatase 70 (38-126) U/L Troponin I 0.014 (0.000-0.034) ng/mL Total Protein 8.4 H (6.3-8.2) g/dL Albumin 4.9 (3.5-5.1) g/dL Urine Color Yellow (Yellow) Urine Appearance Clear (Clear) Urine pH 5.5 (5.0-9.0) Ur Specific [place] 1.039 H (1.001-1.035) Urine Protein 2+ H (Negative) mg/dL Urine Glucose (UA) Negative (Negative) mg/dL Urine Ketones Negative (Negative) mg/dL Ur Blood (Man) 1+ H (Negative) Urine Nitrate Negative (Negative) Urine Bilirubin Negative (Negative) Urine Urobilinogen 0.2 (<2.0) mg/dL Leukocyte Esterase Rfl Negative (Negative) NILSA/UL Urine RBC 0-2 (0-2) /hpf Urine WBC 0-5 (0-3) /hpf Ur Squamous Epith Cells None seen (Few) /hpf Urine Bacteria None seen /hpf Urine Casts 0-2 04/12/25 04/12/25 Range/Units 12:59 16:24 WBC (4.5-10.0) K/mm3 RBC (4.6-6.20) M/mm3 Hgb (14.0-18.0) g/dL Hct (42.0-52.0) % MCV (80-100) fl MCH (26-34) pg MCHC (32-36) g/dl RDW (11.5-14.5) % Plt Count (150-375) k/mm3 MPV (7.4-10.4) fl Immature Gran % (Auto) (0-0.5) % Neut % (Auto) (45.5-73.1) % Lymph % (Auto) (18.3-44.2) % [place] % (Auto) (2.6-8.5) % Eos % (Auto) (0-4.4) % Baso % (Auto) (0.2-1.2) % Lymph # (Auto) (0.9-3.2) K/mm3 [place] # (Auto) (0.1-0.6) K/mm3 Eos # (Auto) (0-0.3) K/mm3 Baso # (Auto) (0.0-0.1) K/mm3 Abs Immat Gran (auto) (0.00-0.031) K/mm3 Absolute Neuts (auto) (1.3-6.7) K/mm3 Absolute Nucleated RBC (0.0-0.012) K/mm3 Nucleated RBC % (0.0-0.2) % PT (11.1-14.7) Seconds INR APTT (22.3-36.8) Seconds Sodium (137-145) mmol/L Potassium (3.4-5.0) mmol/L Chloride (98-107) mmol/L Carbon Dioxide (22-30) mmol/L Anion Gap (4-12) mmol/L BUN (9-20) mg/dL Creatinine (0.7-1.3) mg/dL Estim Creat Clear Calc ml/min Estimated GFR (59 - ) Glucose (65-110) mg/dL Lactic Acid (0.7-2.0) mmol/L Calcium (8.4-10.2) mg/dL Magnesium (1.6-2.3) mg/dL Total Bilirubin (0.2-1.3) mg/dL AST (17-59) U/L ALT (6-50) U/L Alkaline Phosphatase (38-126) U/L Troponin I 0.014 0.015 (0.000-0.034) ng/mL Total Protein (6.3-8.2) g/dL Albumin (3.5-5.1) g/dL Urine Color (Yellow) Urine Appearance (Clear) Urine pH (5.0-9.0) Ur Specific [place] (1.001-1.035) Urine Protein (Negative) mg/dL Urine Glucose (UA) (Negative) mg/dL Urine Ketones (Negative) mg/dL Ur Blood (Man) (Negative) Urine Nitrate (Negative) Urine Bilirubin (Negative) Urine Urobilinogen (<2.0) mg/dL Leukocyte Esterase Rfl (Negative) NILSA/UL Urine RBC (0-2) /hpf Urine WBC (0-3) /hpf Ur Squamous Epith Cells (Few) /hpf Urine Bacteria /hpf Urine Casts <Dakotah Barone MD - Last Filed: 04/12/25 18:06> Imaging Data Attestation: I personally reviewed and interpreted this imaging study as follows: <Silvia Kinney PA-C - Last Filed: 04/12/25 17:31> Radiologist's impression: ITS Impressions Chest X-Ray 04/12/25 10:31 IMPRESSION: 1. No acute cardiopulmonary disease. Head CT 04/12/25 11:17 IMPRESSION: 1. No gross intracranial mass effect or hemorrhage. Comment: For new onset or refractory seizure disorder particularly associated with trauma, correlation with follow-up nonemergent brain MRI recommended. Chest/Abdomen/Pelvis CTA 04/12/25 11:18 IMPRESSION: 1. Mild scattered aphthous chronic plaque disease in the aorta which otherwise appears normal. No aneurysm, dissection or acute arterial complication. 2. There are several incidental findings including subpleural nodule in the right lower lobe with follow-up chest CT recommended in 6 months. Also again noted mild prominence of the proximal pancreatic duct which could be better evaluated with abdominal MRI/MRCP as clinically appropriate. 3. Degenerative changes throughout the bones with evidence of ankylosing spondylitis also noted. <Silvia Kinney PA-C - Last Filed: 04/12/25 17:31> ITS Impressions Chest X-Ray 04/12/25 10:31 IMPRESSION: 1. No acute cardiopulmonary disease. Head CT 04/12/25 11:17 IMPRESSION: 1. No gross intracranial mass effect or hemorrhage. Comment: For new onset or refractory seizure disorder particularly associated with trauma, correlation with follow-up nonemergent brain MRI recommended. Chest/Abdomen/Pelvis CTA 04/12/25 11:18 IMPRESSION: 1. Mild scattered aphthous chronic plaque disease in the aorta which otherwise appears normal. No aneurysm, dissection or acute arterial complication. 2. There are several incidental findings including subpleural nodule in the right lower lobe with follow-up chest CT recommended in 6 months. Also again noted mild prominence of the proximal pancreatic duct which could be better evaluated with abdominal MRI/MRCP as clinically appropriate. 3. Degenerative changes throughout the bones with evidence of ankylosing spondylitis also noted. <Dakotah Barone MD - Last Filed: 04/12/25 18:06> ECG Data EKG #1: Attestation: I personally reviewed and interpreted this ECG as follows: <Silvia Kinney PA-C - Last Filed: 04/12/25 17:31> ECG completion date: 04/12/25 <Silvia Kinney PA-C - Last Filed: 04/12/25 17:31> ECG completion time: 09:58 <Silvia Kinney PA-C - Last Filed: 04/12/25 17:31> normal rate (94), sinus rhythm, non-specific ST changes and RBBB (Incomplete) <LWARENCE Veras Last Filed: 04/12/25 17:31>
[2025-04-12 12:22] LABS: Add Urine Microscopic? YES; Appearance Urine Clear (Clear); Glucose Urine UA Negative (Negative); Leukocyte Esterase Ur Negative LEU/UL (Negative); Nitrate Urine Negative (Negative); Non Pathogenic Casts 0-2; Specific Grav Ur 1.039 (1.001-1.035)
[2025-04-12] MEDS: POTASSIUM CHLORIDE 20 MEQ ER TABLET 40 MEQ PO (12:50)
--- NOTE | 2025-04-12 12:55 | ECG_ITS ---
Test Date: 2025-04-12 13:06:15 Measurements Intervals [place] Rate: 97 P: 55 CO: 196 QRS: -25 QRSD: 101 T: 17 QT: 393 QTc: 501 Interpretive Statements SINUS RHYTHM INCOMPLETE RIGHT BUNDLE BRANCH BLOCK BORDERLINE ST-T WAVE ABNORMALITY- INFERIOR LEADS BASELINE ARTIFACT- I, AVR, V3 BORDERLINE ECG Compared to ECG 04/12/2025 09:58:16 NO SIGNIFICANT CHANGE Electronically Signed On 04-12-2025 13:14:19 [employer] ASSIST[employer]ES [employer]ETING by Maycol Chopra D.O.
[2025-04-12 13:31] LABS: Troponin I 0.014 ng/mL (0.000-0.034)
[2025-04-12 16:55] LABS: Troponin I 0.015 ng/mL (0.000-0.034)
--- NOTE | 2025-04-12 17:31 | PC.NURSE ---
Report given to [facility]. All questions answered prior to transport.
== END 2025-04-12 18:14 | disposition short-term general hospital (02) ==
PROVIDERS: Emergency Medicine; Emergency Provider Physician Assistant; PCP Internal Medicine
DX: R56.9 Unspecified convulsions (principal); R55 Syncope and collapse; N17.9 Acute kidney failure, unspecified; E87.6 Hypokalemia; E87.20 Acidosis, unspecified; R07.9 Chest pain, unspecified; I12.9 Hypertensive chronic kidney disease with stage 1 through stage 4 chronic kidney disease, or unspecified chronic kidney disease; N18.30 Chronic kidney disease, stage 3 unspecified; I25.10 Atherosclerotic heart disease of native coronary artery without angina pectoris; E78.5 Hyperlipidemia, unspecified; K21.9 Gastro-esophageal reflux disease without esophagitis; M19.90 Unspecified osteoarthritis, unspecified site; M10.9 Gout, unspecified; Z90.79 Acquired absence of other genital organ(s); Z86.0101 Personal history of adenomatous and serrated colon polyps; Z85.46 Personal history of malignant neoplasm of prostate; Z96.652 Presence of left artificial knee joint; Z98.61 Coronary angioplasty status; Z79.899 Other long term (current) drug therapy; I45.10 Unspecified right bundle-branch block; R94.31 Abnormal electrocardiogram [ECG] [EKG]
CPT/HCPCS: 36415; 70450; 71046; 71275; 74174; 80053; 81001; 83605; 83735; 84484; 85025; 85610; 85730; 93005; 96365; 96366; 99285; A9270; J3480; J7030; J7040; Q9967

== ENCOUNTER 2025-04-23 08:03 | Outpatient (CLI) | payer MEDICARE, SELFPAY ==
--- OUTSIDE RECORDS SUMMARY | 2025-04-23 08:12 | XMS_ITS | Clinical Summary ---
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
--- OUTSIDE RECORDS SUMMARY | 2025-04-23 08:12 | XMS_ITS | Clinical Summary ---
Author Organization [facility] [employer] Address [address] [place] [address] Care Team Providers Care Architectural Project Manager Name Role Phone Derrick Rojo Primary Care Provider [phone] Source Comments [facility],non-owned Affiliates and Associated Physician Practices is amultiple site organization consisting of ambulatory clinics and hospital sitesin [place], [place], [place] and [place]. This disclosure is being madepursuant to the Care Everywhere program and may not contain all information available regarding this patient. Last updated 18.[facility] [employer] Allergies No known active allergies Medications * Be aware that medications may not be up to date on this document. Alwaysverify current medications with the patient. amLODIPine (Norvasc) 10 MG tablet Take 1 (one) tablet by mouth once daily Active atorvastatin (Lipitor) 40 MG tablet Take 1 (one) tablet by mouth at bedtime Active cyanocobalamin (Vitamin B-12) 1000 MCG tablet Take 1 (one) tablet by mouth once daily Active sildenafil (Viagra) 100 MG tablet Take 1 (one) tablet by mouth as needed Active nitroGLYCERIN (Nitrostat) 0.4 MG tablet Dissolve 1 (one) tablet under the tongue every 5 minutes as needed for Angina Active triamterene-hyd roCHLOROthiazid e (Dyazide) 37.5-25 MG capsule Take by mouth once daily Active labetalol (Normodyne; Trandate) 100 MG tablet Take 1 (one) tablet by mouth 2 times daily Active potassium chloride ER (Klor-Con M) 20 MEQ tablet Take 2 (two) tablets by mouth once daily 60 tablet 5 Active potassium chloride ER (Klor-Con M) 20 MEQ tablet Take 1 (one) tablet by mouth once daily 04/16/20 25 Discontinu ed(Dose Adjustment ) Active Problems Problem Noted Date Diagnosed Date Syncope, unspecified syncope type 04/12/2025 Encounters Date Type Department Care Team Description 04/12/2025 6:21 PM CHANGE ADVISOR - 04/16/2025 12:49 PM CHANGE ADVISOR Hospital Encounter [facility] 7S TELE/NEURO [address] [place] [address] Albert Birmingham MD Bezuneh, Abraham D, MD Eljourni, Ahmed S, MD Hospitalist Discharge Disposition: Home or Self Care 04/12/2025 Travel from Last 3 Months Immunizations Immunization Administration Dates Next Due INFLUENZA VACCINE, ADJUVANTE D, QUADR. (FLUAD QUADRIVALENT; 65Y+) (AIIV4) 04/13/2025 Social History Tobacco Use Types Packs/Day Years Used Date Smoking Tobacco: Never Passive Smoke Exposure: Never Smokeless Tobacco: Never Tobacco Cessation:Counseling Given: Yes Alcohol Use Standard Drinks/Week Comments Never 0 (1 standard drink = 0.6 oz pur e alcohol) Humiliation, Afraid, Rape, and Kick questionnair e Answer Date Recorded Within the last year, have y ou been afraid of your partner or ex-partner? No 04/12/2025 Within the last year, have y ou been humiliated or emotionally abused in other ways by your partner or ex-partner? No Within the last year, have y ou been kicked, hit, slapped, or otherwise physically hurt by your partner or ex-partner? No 04/12/2025 Within the last year, have y ou been raped or forced to have any kind of sexual activity by your partner or ex-partner? No 04/12/2025 AUDIT-C Answer Date Recorded Q1: How often do you have a drink containing alcohol? Never 04/12/2025 Q2: How many drinks containi ng alcohol do you have on a typical day when you are drinking? Patient does not drink Q3: How often do you have si x or more drinks on one occasion? Never 04/12/2025 [facility] - Occupational Stress Questionnaire Answer Date Recorded Do you feel stress - tense, restless, nervous, or anxious, or unable to sleep at night because your mind is troubled all the time - these days? Only a little 04/12/2025 Hunger Vital Sign Answer Date Recorded Within the past 12 months, y ou worried that your food would run out before you got the money to buy more. Never true 04/12/20 25 Within the past 12 months, t he food you bought just didn't last and you didn't have money to get more. Never true 04/12/2025 PRAPARE - Transportation Answer Date Re corded In the past 12 months, has l ack of transportation kept you from medical appointments or from getting medications? No 04/02 In the past 12 months, has l ack of transportation kept you from meetings, work, or from getting things needed for daily living? No 04/12/2025 Housing Stability Vital Sign Answer Calin e Recorded In the last 12 months, was t here a time when you were not able to pay the mortgage or rent on time? No 04/12/2025 In the past 12 months, how m any times have you moved where you were living? 0 04/12/2025 At any time in the past 12 m [facility], were you homeless or living in a halfway (including now)? No 04/12/2025 [facility] Utilities Answer Date Recorded In the past 12 months has th e electric, gas, oil, or water company threatened to shut off services in your home? No 04/12/2025 Sex and Gender Information Value Date Recorded Sex Assigned at Not on file Legal Sex Male 12:37 PM CDT Gender Identity Not on file Sexual Orientation Not on file Last Filed Vital Signs Vital Sign Reading Time Taken Comments Blood Pressure 127/82 04/16/2025 11:09 AM CHANGE ADVISOR Pulse 74 04/16/2025 11:09 AM CHANGE ADVISOR Temperature 36.7 C (98.1 F) 04/16/2025 11:09 AM CHANGE ADVISOR Respiratory Rate 18 04/16/2025 11:09 AM CHANGE ADVISOR Oxygen Saturation 100% 04/16/2025 11:09 AM CHANGE ADVISOR Inhaled Oxygen Concentration - - Weight 117.9 kg (260 lb) 04/13/2025 5:27 PM CHANGE ADVISOR Height 190.5 cm (6' 3) 04/13/2025 5:27 PM CHANGE ADVISOR Body Mass Index 32.5 04/13/2025 5:27 PM CHANGE ADVISOR Plan of Treatment Health Maintenance Due Date Last Done Comments COLOGUARD (AGES 45-75) - COL ON CA SCREENING 1955 COLON MONITORING 1955 COLONOSCOPY - COLON CA SCREENING 1955 CT COLONOGRAPHY - COLON CA SCREENING 1955 Colorectal Cancer Screening 1955 FIT - COLON CA SCREENING 1955 FLEX SIG - COLON CA SCREENING 1955 HEPATITIS C SCREENING 07/01/1975 DTAP/TDAP/TD VACCINES (1 - Tdap) 1976 PNEUMOCOCCAL VACCINE 50+ (1 of 1 - PCV) 07/06/2007 ZOSTER VACCINE (1 of 2) 07/06/2007 DEPRESSION SCREENING 05/03/2024 MEDICARE AWV CALENDAR YEAR 2024 COVID-19 VACCINE (4 - 2024-2 6 season) 2025 04/03/2022, 04/23/2021, 2020 Respiratory Syncytial Virus (RSV) Vaccine Pt: or over 60 yrs (1 - 1-dose 75+ series) 2032 INFLUENZA VACCINE Completed 04/13/2025, 02/07/2020, 05/03/2017 HEPATITIS B VACCINE Aged Out No longe r eligible based on patient's age to complete this topic HIB VACCINE Aged Out No longer eligi ble based on patient's age to complete this topic HPV VACCINE Aged Out No longer eligi ble based on patient's age to complete this topic MENINGOCOCCAL (Group B) VACCINE SHARED DECISION-MAKING Aged Out No longer eligible based on patient's age to complete this topic MENINGOCOCCAL GROUPS A/C/Y/W VACCINE Aged Out No longer eligible b ased on patient's age to complete this topic Procedures Procedure Name Priority Date/Time Associated Diagnosis Comments CARDIAC RHYTHM STRIP ORDER 04/18/2025 7:42 PM CHANGE ADVISOR MAGNESIUM BLOOD Routine 04/16/2025 7:16 AM CHANGE ADVISOR BASIC METABOLIC PANEL (CALCIUM TOTAL) AM Draw 04/16/2025 7:16 AM CHANGE ADVISOR MAGNESIUM BLOOD Routine 04/15/2025 4:34 AM CHANGE ADVISOR BASIC METABOLIC PANEL (CALCIUM TOTAL) AM Draw 04/15/2025 4:34 AM CHANGE ADVISOR URINE DRUG SCREEN IMMUNOASSAY Routine 04/14/2025 3:01 PM CHANGE ADVISOR MRI BRAIN WWO CONTRAST Routine 04/14/2025 12:56 PM CHANGE ADVISOR Syncope, unspecified syncope type TSH REFLEX FREE T4 Routine 04/14/2025 4: 56 AM CHANGE ADVISOR EEG Routine 04/13/2025 5:07 PM CHANGE ADVISOR ECHO COMPLETE W CONTRAST Routine 04/13/2025 2:49 PM CHANGE ADVISOR Syncope, unspecified syncope type NM MYOCARD PERF REST STRESS Routine 04/13/2025 1:50 PM CHANGE ADVISOR Syncope, unspecified syncope type STRESS TEST Routine 04/13/2025 1:15 PM CHANGE ADVISOR Syncope, unspecified syncope type URINE DRUG SCREEN IMMUNOASSAY Routine 04/13/2025 12:[address] ANGIO BRAIN AND NECK Routine 04/13/2025 12:01 PM CHANGE ADVISOR Syncope, unspecified syncope type MAGNESIUM BLOOD Routine 04/13/2025 10:34 AM CHANGE ADVISOR Syncope, unspecified syncope type TSH REFLEX FREE T4 Routine 04/13/2025 10 :34 AM CHANGE ADVISOR TROPONIN-I HIGH SENSITIVE STAT 04/13/2025 10:34 AM CHANGE ADVISOR NT-PRO BNP STAT 04/13/2025 10:34 AM CHANGE ADVISOR LACTIC ACID BLOOD STAT 04/13/2025 10: 34 AM CHANGE ADVISOR CBC W/O DIFFERENTIAL STAT 04/13/2025 10:34 AM CHANGE ADVISOR BASIC METABOLIC PANEL (CALCIUM TOTAL) STAT 04/13/2025 10:34 AM CHANGE ADVISOR from Last 3 Months Results * CARDIAC RHYTHM STRIP ORDER (04/18/2025 7:42 PM CHANGE ADVISOR) Narrative 04/18/2025 7:42 PM CHANGE ADVISOR Ordered by an unspecified provider. us Scanned Document CARDIAC SERVICES ORDERABLES Fin al Result * (ABNORMAL) BASIC METABOLIC PANEL (CALCIUM TOTAL) (04/16/2025 7:16 AM CHANGE ADVISOR) Only the most recent of3 resultswithin the time period is included. Glucose 100(H) 70 - 99 mg/dL 04/16/2025 7:[address] [facility] Sodium 143 136 - 145 mmol/L 04/16/2025 7:[address] [facility] Potassium 3.6 3.5 - 5.1 mmol/L 04/16/2025 7:[address] [facility] Chloride 109(H) 98 - 107 mmol/L 04/16/2025 7:[address] [facility] CO2 26 22 - 29 mmol/L 04/16/2025 7:[address] [facility] Calcium 9.7 8.4 - 10.4 mg/dL 04/16/2025 7:[address] [facility] Anion Gap 8 6 - 16 mmol/L 04/16/2025 7:[address] [facility] BUN 8 7 - 26 mg/dL 04/16/2025 7:[address] [facility] Creatinine 1.08 0.70 - 1.30 mg/dL 04/16/2025 7:[address] [facility] eGFR by CKD-EPI 75(L) >=90 mL/min/1.7 3 m2 04/16/2025 7:[address] [facility] Comment:Estimated Glomerular Filtration Rate (eGFR) calculated using the CKD-EPI Creatinine Equation (2020), per the National Kidney Foundation and [place] [employer]ph[employer] recommendations. Blood BLOOD SPECIMEN / Unknown Venipuncture / Unknown 04/16/2025 7:16 AM CHANGE ADVISOR 04/16/2025 7:19 AM CHANGE ADVISOR us Joanna Lizarraga MD LAB - CHEMISTRY ORDERABLES F inal Result Performing Organization Address City/[facility]/ZIP Co de Phone Number [facility] [address] [place] [address] * MAGNESIUM BLOOD (04/16/2025 7:16 AM CHANGE ADVISOR) Only the most recent of3 resultswithin the time period is included. [facility] Magnesium 2.0 1.6 - 2.6 mg/dL 04/16/2025 7:33 AM CHANGE ADVISOR [facility] Blood BLOOD SPECIMEN / Unknown Venipuncture / Unknown 04/16/2025 7:16 AM CHANGE ADVISOR 04/16/2025 7:19 AM CHANGE ADVISOR Joanna Lizarraga MD LAB - CHEMISTRY ORDERABLES F inal Result Performing Organization Address [facility] Co de Phone Number [facility] [address] [place] [address] * (ABNORMAL) URINE DRUG SCREEN IMMUNOASSAY (04/14/2025 3:01 PM CHANGE ADVISOR) Only the most recent of2 resultswithin the time period is included. [facility] Amphetamines Screen Urine Not detected Not detected 04/14/2025 3:33 PM CHANGE ADVISOR [facility] Barbiturates Screen Urine Not detected Not detected 04/14/2025 3:[address] [facility] Benzodiazepines Screen Urine Not detected Not detected 04/14/2025 3:[address] [facility] Cannabinoids Screen Urine Not detected Not detected 04/14/2025 3:[address] [facility] Cocaine Screen Urine Detected(A) Not detected 04/14/2025 3:[address] [facility] Fentanyl Urine Not detected Not detected 04/14/2025 3:[address] [facility] Methadone Screen Urine Not detected Not detected 04/14/2025 3:[address] [facility] Opiate Screen Urine Not detected Not detected 04/14/2025 3:[address] [facility] Phencyclidine Screen Urine Not detected Not detected 04/14/2025 3:33 PM CHANGE ADVISOR [facility] Urine URINE / Unknown Collection / Unknown 04/14/2025 3:01 PM CHANGE ADVISOR 04/14/2025 3:13 PM CHANGE ADVISOR Narrative [facility] - 04/14/2025 3:33 PM CHANGE ADVISOR This drug screen is designed for MEDICAL purposes only. It is not to be used for legal purposes, including but not limited to worker's comp, police investigations, occupational issues, child custody, etc. Any positive result is only presumptive and must be confirmed with a separate confirmatory test ordered by the physician. Drug Screening Test Cutoff Values: AMPHETAMINES 1000 ng/mL BARBITURATES 200 ng/mL BENZODIAZEPINES 200 ng/mL CANNABINOIDS(THC) 50 ng/mL COCAINE 300 ng/mL FENTANYL 1.5 ng/mL METHADONE 300 ng/mL OPIATES 300 ng/mL PHENCYCLIDINE(PCP) 25 ng/mL us Dolores Varghese MD LAB - URINE CHEMISTRY ORDERABLES Final Result Performing Organization Address City/State/[facility] Co de Phone Number [facility] [address] [place] [address] * MRI Brain Wwo Contrast (04/14/2025 12:56 PM CHANGE ADVISOR) Anatomical Region Laterality Modality Head Magnetic Resonan ce 04/14/2025 2:14 PM CHANGE ADVISOR Impressions 04/14/2025 2:15 PM CHANGE ADVISOR IMPRESSION: 1.No evidence of acute or chronic hemorrhage. No evidence of acute cerebral infarct. No enhancing lesions identified. 2.Sequela of chronic small vessel ischemic disease. > Interpreting Provider: Derrick Payne DO on 04/14/2025 2:15 PM Narrative 04/14/2025 2:15 PM CHANGE ADVISOR PROCEDURE: MRI BRAIN WWO CONTRAST DATE/TIME OF EXAM: 04/14/2025 12:57 PM CLINICAL INFORMATION: None relevant/not provided if blank. Indication: R55: Syncope, unspecified syncope type Additional History: COMPARISON: None available. TECHNIQUE: MRI of the brain was performed without and with contrast. CONTRAST: GADOTERATE MEGLUMINE 0.5 MMOL/ML IV SSM SO:20 mL FINDINGS: No evidence of acute or chronic hemorrhage is identified. No evidence of acute cerebral infarction is seen. The ventricles are nondilated. No mass lesion, edema, mass effect, or midline shift is seen. Periventricular and subcortical white matter FLAIR hyperintensities likely represent sequelae of chronic small vessel ischemic disease. No enhancing lesions are identified. The corpus callosum and sella appear normal. The posterior fossa, brainstem, and craniocervical junction appear normal. The orbits appear normal. The paranasal sinuses are clear. The mastoid air cells are clear. Normal flow voids are demonstrated in the carotid arteries and basilar artery. The calvarium and visualized cervical spine appear normal. Procedure Note Derrick Payne MD - 04/14/2025 PROCEDURE: MRI BRAIN WWO CONTRAST DATE/TIME OF EXAM: 04/14/2025 12:57 PM CLINICAL INFORMATION: None relevant/not provided if blank. Indication: R55: Syncope, unspecified syncope type Additional History: COMPARISON: None available. TECHNIQUE: MRI of the brain was performed without and with contrast. CONTRAST: GADOTERATE MEGLUMINE 0.5 MMOL/ML IV SSM SO:20 mL FINDINGS: No evidence of acute or chronic hemorrhage is identified. No evidence of acute cerebral infarction is seen. The ventricles are nondilated. Nomass lesion, edema, mass effect, or midline shift is seen. Periventricularand subcortical white matter FLAIR hyperintensities likely representsequelae of chronic small vessel ischemic disease. No enhancing lesions are identified. The corpus callosum and sella appear normal. The posterior fossa, brainstem, and craniocervical junction appear normal. The orbits appear normal. The paranasal sinuses are clear. The mastoidair cells are clear. Normal flow voids are demonstrated in the carotidarteries and basilar artery. The calvarium and visualized cervical spine appear normal. IMPRESSION: 1.No evidence of acute or chronic hemorrhage. No evidence of acutecerebral infarct. No enhancing lesions identified. 2.Sequela of chronic small vessel ischemic disease. > Interpreting Provider: Derrick Payne DO on 04/14/2025 2:15 PM Dolores Varghese MD MR ORDERABLES Final Result * TSH REFLEX FREE T4 (04/14/2025 4:56 AM CHANGE ADVISOR) Only the most recent of2 resultswithin the time period is included. TSH 3.630 0.350 - 4.940 uIU/mL 04/14/2025 5:48 AM CHANGE ADVISOR [facility] Blood BLOOD SPECIMEN / Unknown Venipuncture / Unknown 04/14/2025 4:56 AM CHANGE ADVISOR 04/14/2025 5:03 AM CHANGE ADVISOR Ramon Nova PA-C LAB - CHEMISTRY ORDERABLES F inal Result Performing Organization Address [facility] Co de Phone Number [facility] [address] [place] [id number] * EEG (04/13/2025 5:07 PM CHANGE ADVISOR) Narrative [facility] - 04/13/2025 5:07 PM CHANGE ADVISOR Dolores Varghese MD 04/13/2025 5:07 PM [facility] 7S TELE/NEURO [address] [facility] [address] Electroencephalogram Ashkan Stallworth 04/13/2025 Indication: Ashkan Stallworth is a 69 year old male whose eeg was ordered for altered MS. Procedure: EEG was recorded in standard multichannel format utilizing the 10/20 system of electrode placement. Bipolar and referential montages were used for review. The quality of the recording is good. The background consists of up to 9 Hz alpha frequency, moderate amplitude with a posterior dominant rhythm. The record is continuous and symmetric, with good variability and reactivity. No epileptiform activity is seen. No other focal or lateralizing abnormalities are seen. During the recording patient was found to be drowsy with vertex waves and attenuation posterior dominant rhythm. Artifacts compromised the study. IMPRESSION: This is a normal EEG with patient awake and drowsy. No seizure activity was seen. Clinical correlation. Dolores Varghese M.D.Ph.D [facility] Neurology Fiona Miller [employer] PROFESSIONAL NEUROLOGY ORDERABLES Fin al Result Performing Organization Address City/[facility] Co de Phone Number [facility] * ECHO COMPLETE W CONTRAST (04/13/2025 2:49 PM CHANGE ADVISOR) LVOT diam 2.491 cm SSM CV FUJ I PACS LVOT pk grad 4.941 mmHg SSM CV FUJI PACS LVOT pk bernardo 111.14 cm/s SSM CV F UJI PACS LVOT VTI 21.526 cm SSM CV [facility] I PACS AV area pk bernardo 4.536 cm2 SSM C [facility] AV area cont VTI 4.274 cm2 SSM CV FUJI PACS AV pk grad 5.705 mmHg SSM CV FU JI PACS AV mn grad 3.276 mmHg SSM CV FU JI PACS AV pk bernardo 119.423 cm/s SSM CV [facility] I PACS AV VTI 24.549 cm SSM CV [facility] I PACS MV A pk bernardo 84.265 cm/s SSM CV F UJI PACS MV E pk bernardo 58.313 cm/s SSM CV F UJI PACS MV E' lateral bernardo 7.283 cm/s SS M CV [facility] P[facility] MV mn grad 1.121 mmHg SSM CV FU JI PACS MV VTI 22.261 cm SSM CV [facility] I PACS PV pk bernardo 101.693 cm/s SSM CV [facility] I PACS TAPSE 2.022 cm SSM CV [facility] I PACS TR pk bernardo 250.394 cm/s SSM CV [facility] I PACS IVSd 2D 1.161 cm SSM CV [facility] I PACS LVIDd 5.135 cm SSM CV [facility] I PACS LVIDs 2.772 cm SSM CV [facility] I PACS LVPWd 1.242 cm SSM CV [facility] I PACS LV biplane EF 74.771 % [facility] LV A2C EF 71.439 % SSM CV [facility] I PACS LV A4C EF 76.036 % SSM CV [facility] I PACS LV EDV A2C 62.868 ml SSM CV FU JI PACS LV EDV A4C 125.27 ml SSM CV FU JI PACS LV ESV A2C 17.956 ml SSM CV FU JI PACS LV ESV A4C 30.02 ml SSM CV FU JI PACS LA vol BP 72.527 ml SSM CV [facility] I PACS RA area 12.692 cm2 SSM CV [facility] I PACS AV area index 1.69 cm2/m2 SSM CV FUJI PACS LA vol index 0.029 l/m2 SSM CV FUJI PACS Dimensionless Index 0.877 unitless SSM CV [facility] Myocardial strain charge 2 unitless SSM CV [facility] Anatomical Region Laterality Modality Ultrasound 04/13/2025 1:49 PM CHANGE ADVISOR Narrative 04/14/2025 10:36 AM CHANGE ADVISOR Summary * The left ventricle is normal in size. * Left ventricular systolic function is normal with an estimated ejection fraction of 60-65% by visual estimate. * Left ventricular segmental wall motion is normal. * The left ventricular mass is moderately increased with concentric hypertrophy. * The left ventricular diastolic function is consistent with grade I diastolic dysfunction and normal left atrial filling pressure. * The right ventricle is normal in size. * Right ventricular systolic function is normal. * The left atrium is normal in size with a left atrial volume index of 29 ml/m2 by BP MOD. * The right atrium is normal in size. * There is mild mitral valve regurgitation. * There is mild tricuspid valve regurgitation. * The pulmonary artery systolic pressure is normal, 28 mmHg. Patient Info Name: Ashkan Stallworth Age: 69 years : 1955 Gender: Male Ht: 75 in Wt: 260 lb BSA: 2.53 m2 HR: 83 bpm BP: 145 / 81 mmHg Exam Date: 04/13/2025 1:49 PM Patient Status: I/P Study Site: [facility] Primary Location: [facility] EStudy Info Exam Type: ECHO COMPLETE W CONTRAST Indications R55 - Syncope, unspecified syncope type Procedure(s) * A complete 2D, color Doppler, spectral Doppler and M-Mode transthoracic echocardiogram was performed with Definity. Staff Referring Physician: Alicia Vanegas Ordering Provider: Alicia Vanegas Attending Physician: Alicia Vanegas Protection Mgr: Cecilia Schroeder Left Ventricle The left ventricle is normal in size. Left ventricular systolic function is normal with an estimated ejection fraction of 60-65% by visual estimate. Left ventricular segmental wall motion is normal. The left ventricular mass is moderately increased with concentric hypertrophy. The left ventricular diastolic function is consistent with grade I diastolic dysfunction and normal left atrial filling pressure. Right Ventricle The right ventricle is normal in size. Right ventricular systolic function is normal. Left Atrium The left atrium is normal in size with a left atrial volume index of 29 ml/m2 by BP MOD. Right Atrium The right atrium is normal in size. Atrial Septum Intact interatrial septum visualized by 2D and color Doppler imaging. Aortic Valve The aortic valve is trileaflet. There is no aortic valve stenosis. There is no aortic valve regurgitation. Pulmonic Valve The pulmonic valve is normal. There is no pulmonic valve stenosis. There is no pulmonic regurgitation. Mitral Valve The mitral valve is normal. There is no mitral valve stenosis. There is mild mitral valve regurgitation. Tricuspid Valve The tricuspid valve is normal. There is mild tricuspid valve regurgitation. The pulmonary artery systolic pressure is normal, 28 mmHg. Inferior Vena Cava The inferior vena cava is normal in size (< 2.1 cm). There is > 50% collapse of the IVC upon inspiration with an estimated right atrial pressure of 3 mmHg. Pericardium/Pleural There is no pericardial effusion. Aorta The aortic root at the sinus of Valsalva is normal in size. The ascending aorta is normal in size. Measurements Left Ventricular Outflow Tract Name Value Normal LVOT 2D LVOT Diameter 2.5 cm LVOT Area 4.9 cm2 LVOT Doppler LVOT Peak Velocity 1.1 m/s LVOT Peak Gradient 5 mmHg LVOT Mean Velocity 75.41 cm/s LVOT Mean Gradient 3 mmHg LVOT VTI 21.5 cm LVOT VTI/AV VTI Ratio 0.9 LVOT Stroke Volume 105 ml LVOT Stroke Volume Index 41 ml/m2 35-58 LVOT CO 8.7 l/min LVOT CI 3.4 l/min/m2 Pulmonic Valve Name Value Normal PV Doppler PV Peak Velocity 1.0 m/s PV Peak Gradient 4 mmHg Mitral Valve Name Value Normal MV Doppler MV Peak Gradient 3 mmHg MV Mean Gradient 1 mmHg MV DI (VTI) 1.03 MV Area (Cont Eq VTI) 4.71 cm2 MV Diastolic Function MV E Peak Velocity 0.6 m/sec MV A Peak Velocity 0.8 m/sec MV E/A 0.7 MV Decel Time (PW) 172 ms MV Annular TDI MV Septal e' Velocity 6 cm/s >=8 MV E/e' (Septal) 9 <=8 MV Lateral e' Velocity 7 cm/s >=10 MV E/e' (Lateral) 8 <=8 MV e' Average 7 cm/s MV E/e' (Average) 9 Tricuspid Valve Name Value Normal TV Regurgitation Doppler TR Peak Velocity 2.5 m/s TR Peak Gradient 25 mmHg Estimated PAP/RSVP RA Pressure 3 mmHg <=5 PA Systolic Pressure 28 mmHg <35 RV Systolic Pressure 28 mmHg <36 Aorta Name Value Normal Ascending Aorta Ao Root Diameter (MM) 3.4 cm Ao Root Diam Index (MM) 1.4 cm/m2 Aortic Valve Name Value Normal AV 2D/MM AV Cusp Sep (MM) 2.0 cm AV Doppler AV Peak Velocity 1.19 m/s AV Peak Gradient 6 mmHg AV Mean Gradient 3 mmHg AV VTI 25 cm AV Area (Cont Eq VTI) 4.27 cm2 >=2.00 AV Area (Cont Eq Bernardo) 4.54 cm2 AV DI (VTI) 0.88 AV DI (Bernardo) 0.93 AV Regurgitation 2D LVOT Area 4.87 cm2 Ventricles Name Value Normal LV Dimensions 2D/MM IVS Diastolic Thickness (2D) 1.2 cm 0.6-1.0 IVS Diastole Thickness (MM) 1.2 cm 0.6-1.0 LVID Diastole (2D) 5.1 cm 4.2-5.8 LVID Diastole (MM) 6.8 cm 4.2-5.8 LVPW Diastolic Thickness (2D) 1.2 cm 0.6-1.0 LVPW Diastolic Thickness (MM) 1.2 cm 0.6-1.0 IVS Systolic Thickness (MM) 2.1 cm LVID Systole (2D) 2.8 cm 2.5-4.0 LVID Systole (MM) 3.6 cm 2.5-4.0 LVPW Systolic Thickness (MM) 2.1 cm LV Mass (2D Cubed) 244 g 88-224 LV Mass Index (2D Cubed) 97 g/m2 49-115 Relative Wall Thickness (2D) 0.48 <=0.42 LV Mass (MM Cubed) 378 g 88-224 LV Mass Index (MM Cubed) 150 g/m2 49-115 Relative Wall Thickness (MM) 0.35 LV Fractional Shortening/Ejection Fraction 2D/MM LV Fractional Shortening (2D) 46 % 25-43 LV Fractional Shortening (MM) 47 % 25-43 LV EF (MM Teicholz) 77 % 52-72 LV EF (2D Teicholz) 77 % 52-72 LV Diastolic Volume (4C MOD) 125 ml LV EF (4C MOD) 76 % LV Diastolic Volume (2C MOD) 63 ml LV EF (2C MOD) 71 % LV Diastolic Volume (BP MOD) 95 ml 62-150 LV Diastolic Volume Index (BP MOD) 37 ml/m2 34-74 LV Systolic Volume (BP MOD) 24 ml 21-61 LV Systolic Volume Index (BP MOD) 9 ml/m2 11-31 LV EF (BP MOD) 75 % 52-72 LV Diastolic Length (4C) 8.1 cm LV Systolic Length (4C) 6.2 cm LV Stroke Volume (4C MOD) 95 ml RV Dimensions 2D/MM TAPSE 2.0 cm >=1.7 Atria Name Value Normal LA Dimensions LA Dimension (MM) 5.5 cm 3.0-4.1 LA Volume (BP MOD) 73 ml LA Volume Index (BP MOD) 29 ml/m2 16-34 RA Dimensions RA Area (4C) 13 cm2 <=18 RA Area (4C) Index 5 cm2/m2 RA ESV (4C MOD) 26 ml 18-32 RA ESV Index (4C MOD) 10 ml/m2 16-34 Report Signatures Finalized by Aamir Fisher on 04/14/2025 10:36 AM Procedure Note Aamir Fisher MD - 04/14/2025 Summary * The left ventricle is normal in size. * Left ventricular systolic function is normal with an estimatedejection fraction of 60-65% by visual estimate. * Left ventricular segmental wall motion is normal. * The left ventricular mass is moderately increased with concentric hypertrophy. * The left ventricular diastolic function is consistent with grade I diastolic dysfunction and normal left atrial filling pressure. * The right ventricle is normal in size. * Right ventricular systolic function is normal. * The left atrium is normal in size with a left atrial volume index of29 ml/m2 by BP MOD. * The right atrium is normal in size. * There is mild mitral valve regurgitation. * There is mild tricuspid valve regurgitation. * The pulmonary artery systolic pressure is normal, 28 mmHg. Patient Info Name: Ashkan Stallworth Age: 69 years : 1955 Gender: Male Ht: 75 in Wt: 260 lb BSA: 2.53 m2 HR: 83 bpm BP: 145 / 81 mmHg Exam Date: 04/13/2025 1:49 PM Patient Status: I/P Study Site: [facility] Primary Location: [facility] EStudy Info Exam Type: ECHO COMPLETE W CONTRAST Indications R55 - Syncope, unspecified syncope type Procedure(s) * A complete 2D, color Doppler, spectral Doppler and M-Modetransthoracic echocardiogram was performed with DefinInThrMa. Staff Referring Physician: Alicia Vanegas Ordering Provider: Alicia Vanegas Attending Physician: Alicia Vanegas Protection Mgr: Cecilia Schroeder Left Ventricle The left ventricle is normal in size. Left ventricular systolic functionis normal with an estimated ejection fraction of 60-65% by visual estimate.Left ventricular segmental wall motion is normal. The left ventricular massis moderately increased with concentric hypertrophy. The left ventricular diastolic function is consistent with grade I diastolic dysfunction andnormal left atrial filling pressure. Right Ventricle The right ventricle is normal in size. Right ventricular systolicfunction is normal. Left Atrium The left atrium is normal in size with a left atrial volume index of29 ml/m2 by BP MOD. Right Atrium The right atrium is normal in size. Atrial Septum Intact interatrial septum visualized by 2D and color Doppler imaging. Aortic Valve The aortic valve is trileaflet. There is no aortic valve stenosis. Thereis no aortic valve regurgitation. Pulmonic Valve The pulmonic valve is normal. There is no pulmonic valve stenosis. Thereis no pulmonic regurgitation. Mitral Valve The mitral valve is normal. There is no mitral valve stenosis. There ismild mitral valve regurgitation. Tricuspid Valve The tricuspid valve is normal. There is mild tricuspid valveregurgitation. The pulmonary artery systolic pressure is normal, 28 mmHg. Inferior Vena Cava The inferior vena cava is normal in size (< 2.1 cm). There is > 50%collapse of the IVC upon inspiration with an estimated right atrial pressure of 3mmHg. Pericardium/Pleural There is no pericardial effusion. Aorta The aortic root at the sinus of Valsalva is normal in size. Theascending aorta is normal in size. Measurements Left Ventricular Outflow Tract Name Value Normal LVOT 2D LVOT Diameter 2.5 cm LVOT Area 4.9 cm2 LVOT Doppler LVOT Peak Velocity 1.1 m/s LVOT Peak Gradient 5 mmHg LVOT Mean Velocity 75.41 cm/s LVOT Mean Gradient 3 mmHg LVOT VTI 21.5 cm LVOT VTI/AV VTI Ratio 0.9 LVOT Stroke Volume 105 ml LVOT Stroke Volume Index 41 ml/m2 35-58 LVOT CO 8.7 l/min LVOT CI 3.4 l/min/m2 Pulmonic Valve Name Value Normal PV Doppler PV Peak Velocity 1.0 m/s PV Peak Gradient 4 mmHg Mitral Valve Name Value Normal MV Doppler MV Peak Gradient 3 mmHg MV Mean Gradient 1 mmHg MV DI (VTI) 1.03 MV Area (Cont Eq VTI) 4.71 cm2 MV Diastolic Function MV E Peak Velocity 0.6 m/sec MV A Peak Velocity 0.8 m/sec MV E/A 0.7 MV Decel Time (PW) 172 ms MV Annular TDI MV Septal e' Velocity 6 cm/s >=8 MV E/e' (Septal) 9 <=8 MV Lateral e' Velocity 7 cm/s >=10 MV E/e' (Lateral) 8 <=8 MV e' Average 7 cm/s MV E/e' (Average) 9 Tricuspid Valve Name Value Normal TV Regurgitation Doppler TR Peak Velocity 2.5 m/s TR Peak Gradient 25 mmHg Estimated PAP/RSVP RA Pressure 3 mmHg <=5 PA Systolic Pressure 28 mmHg <35 RV Systolic Pressure 28 mmHg <36 Aorta Name Value Normal Ascending Aorta Ao Root Diameter (MM) 3.4 cm Ao Root Diam Index (MM) 1.4 cm/m2 Aortic Valve Name Value Normal AV 2D/MM AV Cusp Sep (MM) 2.0 cm AV Doppler AV Peak Velocity 1.19 m/s AV Peak Gradient 6 mmHg AV Mean Gradient 3 mmHg AV VTI 25 cm AV Area (Cont Eq VTI) 4.27 cm2 >=2.00 AV Area (Cont Eq Bernardo) 4.54 cm2 AV DI (VTI) 0.88 AV DI (Bernardo) 0.93 AV Regurgitation 2D LVOT Area 4.87 cm2 Ventricles Name Value Normal LV Dimensions 2D/MM IVS Diastolic Thickness (2D) 1.2 cm 0.6-1.0 IVS Diastole Thickness (MM) 1.2 cm 0.6-1.0 LVID Diastole (2D) 5.1 cm 4.2-5.8 LVID Diastole (MM) 6.8 cm 4.2-5.8 LVPW Diastolic Thickness (2D) 1.2 cm 0.6-1.0 LVPW Diastolic Thickness (MM) 1.2 cm 0.6-1.0 IVS Systolic Thickness (MM) 2.1 cm LVID Systole (2D) 2.8 cm 2.5-4.0 LVID Systole (MM) 3.6 cm 2.5-4.0 LVPW Systolic Thickness (MM) 2.1 cm LV Mass (2D Cubed) 244 g 88-224 LV Mass Index (2D Cubed) 97 g/m2 49-115 Relative Wall Thickness (2D) 0.48 <=0.42 LV Mass (MM Cubed) 378 g 88-224 LV Mass Index (MM Cubed) 150 g/m2 49-115 Relative Wall Thickness (MM) 0.35 LV Fractional Shortening/Ejection Fraction 2D/MM LV Fractional Shortening (2D) 46 % 25-43 LV Fractional Shortening (MM) 47 % 25-43 LV EF (MM Teicholz) 77 % 52-72 LV EF (2D Teicholz) 77 % 52-72 LV Diastolic Volume (4C MOD) 125 ml LV EF (4C MOD) 76 % LV Diastolic Volume (2C MOD) 63 ml LV EF (2C MOD) 71 % LV Diastolic Volume (BP MOD) 95 ml 62-150 LV Diastolic Volume Index (BP MOD) 37 ml/m2 34-74 LV Systolic Volume (BP MOD) 24 ml 21-61 LV Systolic Volume Index (BP MOD) 9 ml/m2 11-31 LV EF (BP MOD) 75 % 52-72 LV Diastolic Length (4C) 8.1 cm LV Systolic Length (4C) 6.2 cm LV Stroke Volume (4C MOD) 95 ml RV Dimensions 2D/MM TAPSE 2.0 cm >=1.7 Atria Name Value Normal LA Dimensions LA Dimension (MM) 5.5 cm 3.0-4.1 LA Volume (BP MOD) 73 ml LA Volume Index (BP MOD) 29 ml/m2 16-34 RA Dimensions RA Area (4C) 13 cm2 <=18 RA Area (4C) Index 5 cm2/m2 RA ESV (4C MOD) 26 ml 18-32 RA ESV Index (4C MOD) 10 ml/m2 16-34 Report Signatures Finalized by Aamir Fisher on 04/14/2025 10:36 AM Alicia Vanegas [employer] OPERATOR-TAX SERVICES PROFESSIONAL ECHO CUPID Final Result * NM MYOCARD PERF REST STRESS (04/13/2025 1:50 PM CHANGE ADVISOR) Anatomical Region Laterality Modality Chest Nuclear Medicine 04/13/2025 1:54 PM CHANGE ADVISOR Impressions 04/13/2025 1:58 PM CHANGE ADVISOR IMPRESSION: NORMAL MYOCARDIAL PERFUSION SCAN. > Interpreting Provider: Vicente Marin MD on 04/13/2025 1:58 PM Narrative 04/13/2025 1:58 PM CHANGE ADVISOR PROCEDURE: NM MYOCARD PERF REST STRESS DATE/TIME OF EXAM: 04/13/2025 1:50 PM CLINICAL INFORMATION: None relevant/not provided if blank. Indication: R55: Syncope, unspecified syncope type Chest pain. RADIOPHARMACEUTICAL: Tc 99m Tetrofosmin 35.0 mCi IV administered at stress. Technetium 99m Tetrofosmin 11.94 mCi IV administered at rest. FINDINGS: Stress portion of the exam was monitored by the cardiology service. 0.4 mg of Lexiscan was administered. There are no stress induced or fixed perfusion defects. Incidental mild breast attenuation artifact. The left ventricular ejection fraction is normal at 61%. There are no regional wall motion abnormalities. Procedure Note Vicente Marin MD - 04/13/2025 PROCEDURE: NM MYOCARD PERF REST STRESS DATE/TIME OF EXAM: 04/13/2025 1:50 PM CLINICAL INFORMATION: None relevant/not provided if blank. Indication: R55: Syncope, unspecified syncope type Chest pain. RADIOPHARMACEUTICAL: Tc 99m Tetrofosmin 35.0 mCi IV administered at stress. Technetium 99m Tetrofosmin 11.94 mCi IV administered at rest. FINDINGS: Stress portion of the exam was monitored by the cardiology service. 0.4mg of Lexiscan was administered. There are no stress induced or fixed perfusion defects. Incidental mild breast attenuation artifact. The left ventricular ejection fraction is normal at 61%. There are no regional wall motion abnormalities. IMPRESSION: NORMAL MYOCARDIAL PERFUSION SCAN. > Interpreting Provider: Vicente Marin MD on 04/13/2025 1:58 PM Ramon Nova PA-C CT ORDERABLES Final Result * STRESS TEST Pharm-Lexiscan (Regadenoson) (04/13/2025 1:15 PM CHANGE ADVISOR) Anatomical Region Laterality Modality Cardiac Electrop hysiology 04/13/2025 11:4 5 AM CHANGE ADVISOR Narrative 04/20/2025 1:06 PM CHANGE ADVISOR Patient Info Name: Ashkan Stallworth Age: 69 years : 1955 Gender: Male HR: 81 bpm BP: 156 / 84 mmHg Heart Rhythm: Sinus Rhythm Exam Date: 04/13/2025 11:45 AM Patient Status: I/P Study Site: [facility] Primary Location: [facility] EStudy Info Exam Type: STRESS TEST Indications R55 - Syncope, unspecified syncope type Procedure(s) * Pharmacological stress test was performed. Staff Referring Physician: Ramon Nvoa Ordering Provider: Ramon Nova Attending Physician: Ramon Nova Nurse: Magaly Peres Nurse: Samantha Savage Summary * Stress ECG is negative for ischemia. * Nuclear test results to follow. Protocol: Regadenoson Stress ECG Details Stage: Recovery Duration (min): 1 min : 0 sec HR (bpm): 88 SBP (mmHg): 150 DBP (mmHg): 92 Symptoms: flushed and feels warm Duration (min): 2 min : 0 sec HR (bpm): 85 SBP (mmHg): 152 DBP (mmHg): 83 Symptoms: s/s resolving Duration (min): 3 min : 0 sec HR (bpm): 84 SBP (mmHg): 147 DBP (mmHg): 79 Symptoms: s/s resolved. Duration (min): 4 min : 0 sec HR (bpm): 86 SBP (mmHg): 145 DBP (mmHg): 81 Resting ECG Normal sinus rhythm and ST segments/t-waves at rest. Stress ECG Stress ECG is negative for ischemia. Medications See Epic for a complete list of medications used during the study. Heart Rate Response : Max Predicted HR (bpm): 153 : Target HR (bpm): 130 Report Signatures Finalized by Aamir Fisher on 04/20/2025 01:06 PM Procedure Note Aamir Fisher MD - 04/20/2025 Patient Info Name: Ashkan Stallworth Age: 69 years : 1955 Gender: Male HR: 81 bpm BP: 156 / 84 mmHg Heart Rhythm: Sinus Rhythm Exam Date: 04/13/2025 11:45 AM Patient Status: I/P Study Site: [facility] Primary Location: [facility] EStudy Info Exam Type: STRESS TEST Indications R55 - Syncope, unspecified syncope type Procedure(s) * Pharmacological stress test was performed. Staff Referring Physician: Ramon Nova Ordering Provider: Ramon Nova Attending Physician: Ramon Nova Nurse: Magaly Peres Nurse: Samantha Savage Summary * Stress ECG is negative for ischemia. * Nuclear test results to follow. Protocol: Regadenoson Stress ECG Details Stage: Recovery Duration (min): 1 min : 0 sec HR (bpm): 88 SBP (mmHg): 150 DBP (mmHg): 92 Symptoms: flushed and feels warm Duration (min): 2 min : 0 sec HR (bpm): 85 SBP (mmHg): 152 DBP (mmHg): 83 Symptoms: s/s resolving Duration (min): 3 min : 0 sec HR (bpm): 84 SBP (mmHg): 147 DBP (mmHg): 79 Symptoms: s/s resolved. Duration (min): 4 min : 0 sec HR (bpm): 86 SBP (mmHg): 145 DBP (mmHg): 81 Resting ECG Normal sinus rhythm and ST segments/t-waves at rest. Stress ECG Stress ECG is negative for ischemia. Medications See Epic for a complete list of medications used during the study. Heart Rate Response : Max Predicted HR (bpm): 153 : Target HR (bpm): 130 Report Signatures Finalized by Aamir Fisher on 04/20/2025 01:06 PM Ramon Nova PA-C CARDIAC SERVICES CUPID Final Result * CT Angio Brain And Neck (04/13/2025 12:01 PM CHANGE ADVISOR) Anatomical Region Laterality Modality Head Computed Tomogra phy 04/13/2025 1:55 PM CHANGE ADVISOR Impressions 04/13/2025 2:01 PM CHANGE ADVISOR IMPRESSION: No evidence of significant intracranial or extracranial arterial steno-occlusive disease. No acute abnormality identified to specifically correlate with the current clinical presentation. > Interpreting Provider: Jamaal Martines MD on 04/13/2025 2:01 PM Narrative 04/13/2025 2:01 PM CHANGE ADVISOR PROCEDURE: CT ANGIO BRAIN AND NECK DATE/TIME OF EXAM: 04/13/2025 12:02 PM CLINICAL INFORMATION: None relevant/not provided if blank. Indication: R55: Syncope, unspecified syncope type Additional History: COMPARISON: None. TECHNIQUE: CT angiography of the brain and neck was performed without IV contrast followed by IV contrast, including 3D MIPS post processing CTA image reconstruction provided from an independent workstation. Stenosis measurements are based on NASCET criteria. CT dose reduction technique was used, including Automated Exposure Control. CONTRAST: IOPAMIDOL 76 % IV SOLN:80 mL FINDINGS: Examination of the cervical arterial circulation reveals that the right and left common, internal and external carotid artery are patent. No stenosis or ulcer identified. Minimal calcific plaque right carotid bifurcation. Right and left vertebral artery are patent and are symmetric in size. Examination of the intracranial arterial circulation reveals that the distal right and left internal carotid artery are patent as are the right and left middle and anterior cerebral. Basilar is patent as are its major branches. No acute Central intracranial arterial occlusion or embolic filling defect is identified. Major venous structures are patent. No abnormal parenchymal enhancement. Procedure Note Jamaal Martines MD - 04/13/2025 PROCEDURE: CT ANGIO BRAIN AND NECK DATE/TIME OF EXAM: 04/13/2025 12:02 PM CLINICAL INFORMATION: None relevant/not provided if blank. Indication: R55: Syncope, unspecified syncope type Additional History: COMPARISON: None. TECHNIQUE: CT angiography of the brain and neck was performed without IV contrast followed by IV contrast, including 3D MIPS post processing CTA image reconstruction provided from an independent workstation. Stenosis measurements are based on NASCET criteria. CT dose reduction technique was used, including Automated ExposureControl. CONTRAST: IOPAMIDOL 76 % IV SOLN:80 mL FINDINGS: Examination of the cervical arterial circulation reveals that the rightand left common, internal and external carotid artery are patent. Nostenosis or ulcer identified. Minimal calcific plaque right carotid bifurcation. Right and left vertebral artery are patent and are symmetric in size. Examination of the intracranial arterial circulation reveals that the distal right and left internal carotid artery are patent as are theright and left middle and anterior cerebral. Basilar is patent as are itsmajor branches. No acute Central intracranial arterial occlusion or embolic filling defect is identified. Major venous structures are patent. No abnormal parenchymal enhancement. IMPRESSION: No evidence of significant intracranial or extracranial arterial steno-occlusive disease. No acute abnormality identified to specifically correlate with thecurrent clinical presentation. > Interpreting Provider: Jamaal Martines MD on 04/13/2025 2:01 PM us Fiona Miller CON[employer]CTION PLANT OPERATOR-TAX SERVICES PROFESSIONAL CT ORDERABLES Final Re sult * TROPONIN-I HIGH SENSITIVE (04/13/2025 10:34 AM CHANGE ADVISOR) Troponin I High Sensitive 6 <=35 ng/L 04/13/2025 11:06 AM CHANGE ADVISOR [facility] Blood BLOOD SPECIMEN / Unknown Venipuncture / Unknown 04/13/2025 10:34 AM CHANGE ADVISOR 04/13/2025 10:41 AM CHANGE ADVISOR Alicia Vanegas [facility] - CHEMISTRY ORDERA BLES Final Result Performing Organization Address [facility] de Phone Number [facility] [id number] [place] [id number] * NT-PRO BNP (04/13/2025 10:34 AM CHANGE ADVISOR) NT-proBNP 109.6 <900.0 pg/mL 04/13/2025 11:22 AM CHANGE ADVISOR [facility] Blood BLOOD SPECIMEN / Unknown Venipuncture / Unknown 04/13/2025 10:34 AM CHANGE ADVISOR 04/13/2025 10:41 AM CHANGE ADVISOR Narrative [facility] - 04/13/2025 11:22 AM CHANGE ADVISOR NT-pro-BNP values below 300 pg/mL, for individuals 18 or above, have a 99% negative predictive value for excluding acute congestive heart failure (CHF). In patients with eGFR less than 60 mL/min/1.73 m2, caution should be used when interpreting NT-pro-BNP results. Results should be assessed in conjunction with the patient s medical history, clinical examination, and other findings. NT-pro-BNP is measured on the [employer] analyzer using chemiluminescent microparticle immunoassay (CMIA) technology. us Alicia Vanegas [facility] - CHEMISTRY ORDERA BLES Final Result Performing Organization Address [facility] de Phone Number [facility] [id number] [place] [phone] * CBC W/O DIFFERENTIAL (04/13/2025 10:34 AM CHANGE ADVISOR) WBC 10.5 4.0 - 10.7 x10E9/L 04/13/2025 10:46 AM CHANGE ADVISOR [facility] RBC Count 4.38 4.30 - 5.80 x10E12/L 04/13/2025 10:46 AM CHANGE ADVISOR [facility] Hemoglobin 13.7 13.3 - 17.5 g/dL 04/13/2025 10:46 AM CHANGE ADVISOR [facility] Hematocrit 41.7 38.7 - 51.1 % 04/13/2025 10:[address] [facility] MCV 95.2 80.0 - 98.0 fL 04/13/2025 10:[address] [facility] MCH 31.3 26.7 - 33.6 pg 04/13/2025 10:46 AM CHANGE ADVISOR [facility] MCHC 32.9 31.7 - 36.3 g/dL 04/13/2025 10:[address] [facility] RDW-CV 12.1 11.3 - 14.8 % 04/13/2025 10:[address] [facility] Platelet Count 218 150 - 420 x10E9/L 04/13/2025 10:[address] [facility] MPV 10.2 7.8 - 11.4 fL 04/13/2025 10:[address] [facility] Blood BLOOD SPECIMEN / Unknown Venipuncture / Unknown 04/13/2025 10:34 AM CHANGE ADVISOR 04/13/2025 10:41 AM CHANGE ADVISOR Alicia Vanegas APRN-TAX SERVICES PROFESSIONAL LAB - HEMATOLOGY ORDER TERE Final Result Performing Organization Address City/[facility]/ZIP Co de Phone Number [facility] [address] [place], [place] [id number] * LACTIC ACID BLOOD (04/13/2025 10:34 AM CHANGE ADVISOR) Lactic Acid 1.4 <=2 mmol/L 04/13/2025 11:[address] [facility] Blood BLOOD SPECIMEN / Unknown Venipuncture / Unknown 04/13/2025 10:34 AM CHANGE ADVISOR 04/13/2025 10:39 AM CHANGE ADVISOR Alicia Vanegas APRN-TAX SERVICES PROFESSIONAL LAB - CHEMISTRY ORDERA BLES Final Result Performing Organization Address [facility]/ZIP Co de Phone Number [facility] [address] [place] [address] from Last 3 Months Insurance [facility] MEDICARE [facility] Advance Directives * Full Code (Latest Code Status on File) Date Activated Date Inactivated Comments 04/13/2025 9:23 AM 04/16/2025 1:49 PM Care Teams Architectural Project Manager Relationship Specialty Start Date End Date Derrick Rojo [id number] [facility] [place] [address] PCP - General 04/12/25
[2025-04-23 14:08] LABS: Anion Gap 9 mmol/L (4-12); Blood Urea Nitrogen 13 mg/dL (9-20); Calcium 9.8 mg/dL (8.4-10.2); Carbon Dioxide 30 mmol/L (22-30); Chloride 103 mmol/L (98-107); Estimated Glomerular Filt Rate 57; Glucose 117 mg/dL (65-110); Potassium 3.4 mmol/L (3.4-5.0); Sodium 142 mmol/L (137-145)
== END 2025-04-23 08:04 | disposition home or self-care (01) ==
PROVIDERS: PCP Internal Medicine; Visit Provider Nurse Practitioner
DX: E87.6 Hypokalemia (principal)
CPT/HCPCS: 36415; 80048